=== PATIENT | male | born 1950 | race Caucasian/White ===

== ENCOUNTER 2017-01-20 09:37 | Emergency (ER) | payer MEDICARE, OTHER ==
--- NOTE | 2017-01-20 09:58 | ED Physician Documentation ---
PD HPI TRUNK INJURY - Stated complaint Stated Complaint: R RIB INJ - Chief complaint Chief Complaint: General - History obtained from History obtained from: Patient, Family - History of Present Illness Location: Right chest Type of injury: Fall (he has balance/vertigo problems and has fallen at times if gets up too quickly. He uses cane regularly. Has seen ENT and is going to see Neuro next month about it. Meclizine did not help. He is on several meds that could give these symptoms, though all the meds predate the onset of symptoms by a year or two. He struck right anterolateral ribs when fell and hurts focally.) Timing - onset: Last night Timing - details: Abrupt onset, Still present Quality: Pain Improved by: Rest Worsened by: Moving, Palpating, Other (deep breathing) Associated symtptoms: No: Weakness, Numbness Contributing factors: No: Anticoagulated, Other injury Where injury occured: Home Review of Systems Constitutional: denies: Fever, Chills Nose: denies: Rhinorrhea / runny nose, Congestion Throat: denies: Sore throat Cardiac: denies: Palpitations Respiratory: denies: Dyspnea, Cough, Wheezing GI: denies: Abdominal Pain, Nausea, Vomiting Neurologic: denies: Focal weakness, Numbness, Altered mental status, Headache, Head injury PD PAST MEDICAL HISTORY - Past Medical History Past Medical History: Yes Cardiovascular: Hypertension, High cholesterol Respiratory: None Endocrine/Autoimmune: None GI: None : None HEENT: None Musculoskeletal: Osteoarthritis, Other Derm: Other - Past Surgical History Past Surgical History: No General: Bowel surgery Ortho: Other - Present Medications Home Medications: Ambulatory Orders Medication Instructions Recorded Confirmed Gabapentin [Neurontin] 600 mg PO TID 06/16/13 01/20/17 Sertraline [Zoloft] 100 mg PO DAILY 06/16/13 01/20/17 Atenolol 50 mg PO DAILY 12/19/15 01/20/17 Cyclobenzaprine [Flexeril] 10 mg PO TID PRN 12/19/15 01/20/[address] [Voltaren] 75 mg PO BIDWM 12/19/15 01/20/17 Hydroxyzine HCl 25 mg PO TID 12/19/15 01/20/17 Lisinopril 20 mg PO DAILY 12/19/15 01/20/17 Omeprazole [PriLOSEC] 40 mg PO BID 12/19/15 01/20/17 Prazosin HCl [Minipress] 4 mg PO DAILY PM 12/19/15 01/20/17 buPROPion [Wellbutrin Sr] 150 mg PO BID 12/19/15 01/20/17 Atorvastatin Calcium 40 mg PO DAILY 01/20/17 01/20/17 Hydroxyzine Pamoate 25 mg PO TID 01/20/17 01/20/17 Meclizine HCl 25 mg PO Q6HR PRN 01/20/17 01/20/17 Tramadol HCl 50 mg PO Q6H PRN #20 tablet 01/20/17 - Allergies Allergies/Adverse Reactions: Allergies Allergy/AdvReac Type Severity Reaction Status Date / Time No Known Drug Allergies Allergy Verified 06/16/13 15:35 - Social History Does the pt smoke?: No Smoking Status: Never smoker Does the pt drink ETOH?: Yes Does the pt have substance abuse?: No - Immunizations Immunizations: TDAP >10years/unknown PD ED PE NORMAL - Vitals Vital signs reviewed: Yes - General General: Alert and oriented X 3, Well developed/nourished, Other (appears in pain with movement of trunk and deep breathing. Unlabored breathing when sitting. ) - HEENT HEENT: Atraumatic - Neck Neck: Supple, no meningeal sign, No bony TTP, No adenopathy - Cardiac Cardiac: RRR, No murmur - Respiratory Respiratory: Clear bilaterally, Other (right anterolateral chestwall tenderness without crepitance nor deformity about ribs 7-10 area. ) - Abdomen Abdomen: Normal bowel sounds, Soft, Non tender, Non distended - Derm Derm: Normal color, Warm and dry - Neuro Neuro: Alert and oriented X 3, real estate transaction coordinator 2-12 intact, No motor deficit, No sensory deficit, Normal speech, Other - Psych Psych: Normal mood, Normal affect Results - Vitals Vitals: Vital Signs - 24 hr 01/20/17 01/20/17 09:40 11:20 Temperature 35.5 C L Heart Rate 76 67 Respiratory 14 18 Rate Blood Pressure 167/103 H 165/98 H O2 Saturation 100 97 Oxygen O2 Source Room air - Rads (name of study) ribs with chest Radiology: Prelim report reviewed, EMP read contemporaneously (no PTX, effusion nor evident rib fractures. ) PD MEDICAL DECISION MAKING - ED course Complexity details: reviewed results (no fractures seen. Clinically not concern for abd injury. Short course NSAIDs and pain meds. Though don't want to add to his dizziness, balance issues. He has seen ENT and is seeing Neuro regarding the vertiog-like symptoms. Told pt xray is okay but does not preclude 5% chance of occult nondisplaced fracture of rib. I talked with him about his having several meds that can cause dizziness and if his PMD would want to try single elimination at a time of some of his meds to see if causing the dizziness. He is seeing Neuro next month as well. ), considered differential, d/w patient Departure - Departure Disposition: 01 Home, Self Care Clinical Impression: Fall from slip, trip, or stumble Qualifiers: Encounter type: initial encounter Qualified Code(s): W01.0XXA - Fall on same level from slipping, tripping and stumbling without subsequent striking against object, initial encounter Chest wall contusion Qualifiers: Encounter type: initial encounter Laterality: right Qualified Code(s): S20.211A - Contusion of right front wall of thorax, initial encounter Condition: Stable Record reviewed to determine appropriate education?: Yes Instructions: ED Contusion Chest Wall Follow-Up: Luis Alfredo De Anda PA-C [Primary Care Provider] - Prescriptions: Tramadol HCl 50 mg PO Q6H PRN #20 tablet PRN Reason: Pain Comments: Tylenol 650 mg 4 times daily for the next few days. Add Ibuprofen or Naproxen for pain as needed, or can add Tramadol if worse pain. Drink adequate fluids. Continue other usual medications. I don't see any broken ribs on xray, but can still be sore, and some hairline cracks in ribs may not show, so could be sore for week or two. Discharge Date/Time: 01/20/17 11:22
[2017-01-20] MEDS ORDERED: IBUPROFEN 600 MG TABLET PO STA (10:24)
[2017-01-20] MEDS ORDERED: traMADol 50 MG TABLET PO STA (10:24)
[2017-01-20] MEDS ORDERED: traMADol 50 MG TABLET PO ONE (10:27)
[2017-01-20] MEDS ORDERED: IBUPROFEN 600 MG TABLET PO ONE ×2 (10:28→10:30)
[2017-01-20 11:21] VITALS: BP 165/98
--- NOTE | 2017-01-20 11:50 | XRAY Preliminary Report ---
Exam: XR Ribs w/PA Chest RT IMPRESSION: Negative right rib radiography. [facility] SITE ID: [id number]
--- NOTE | 2017-01-20 11:53 | XRAY Report ---
EXAM: RIGHT RIB RADIOGRAPHY EXAM DATE: 01/20/2017 10:45 AM. CLINICAL HISTORY: Fall last night with right ribs pain. COMPARISON: No prior rib x-ray for comparison; chest x-ray on 07/04/2006. TECHNIQUE: 2 views of the right ribs and one AP view of the chest. FINDINGS: Bones: No fracture or bone lesion. Lungs: No focal opacities evident. No pneumothorax or pleural effusions. Mediastinum: Heart and cardiomediastinal contours are unremarkable. IMPRESSION: Negative right rib radiography. [facility] Referring Provider Line: [phone] SITE ID: [id number]
== END 2017-01-20 11:22 | disposition home or self-care (01) ==
LOC: ED 09:37
DX: S20.211A Contusion of right front wall of thorax, initial encounter (principal); W01.0XXA Fall on same level from slipping, tripping and stumbling without subsequent striking against object, initial encounter; R42 Dizziness and giddiness; I10 Essential (primary) hypertension
CPT/HCPCS: 71101; 99283; 99284; A9270

== ENCOUNTER 2018-07-13 09:49 | Outpatient (CLI) | payer MEDICARE, OTHER ==
[2018-07-13] MEDS ORDERED: BARIUM SULFATE 176 GM BOTTLE PO ONE (10:40)
[2018-07-13] MEDS ORDERED: SIMETHICONE/SOD BICARB/CIT AC 1 EACH PACKET PO ONE (10:41)
[2018-07-13] MEDS ORDERED: BARIUM SULFATE 135 ML BOTTLE PO ONE (10:41)
[2018-07-13 11:21] LABS: ALBUMIN 4.3 g/dL (3.2-5.5); ALBUMIN/GLOBULIN RATIO 1.1 (1.0-2.2); ALKALINE PHOSPHATASE 59 IU/L (42-121); ALT ALANINE AMINOTRANSFERASE 22 IU/L (10-60); AST ASPARTATE AMINOTRANSFERASE 34 IU/L (10-42); BILIRUBIN,TOTAL 1.5 mg/dL (0.2-1.0); BUN - BLOOD UREA NITROGEN 12 mg/dL (6-20); CALCIUM 9.5 mg/dL (8.5-10.3); CARBON DIOXIDE - CO2 27 mmol/L (21-32); CHLORIDE 102 mmol/L (101-111); CHOL/HDL RATIO 3.9 (<5.0); CHOLESTEROL 232 mg/dL; CREATININE 0.4 mg/dL (0.6-1.2); GFR - MDRD 215 (>89); GLUCOSE 122 mg/dL (70-100); HDL CHOLESTEROL 59 mg/dL; LDL CHOLESTEROL,CALCULATED 148 mg/dL; LDL/HDL RATIO 2.5 (<3.6); SODIUM 137 mmol/L (135-145); TOTAL PROTEIN 8.1 g/dL (6.7-8.2); VLDL CHOLESTEROL 25 mg/dL
[2018-07-13 11:40] LABS: HB2 TOTAL 19.6 g/dL; HEMOGLOBIN A1C 0.67 g/dL; HEMOGLOBIN A1C % 5.3 % (4.6-6.2)
[2018-07-13 11:47] LABS: BASOPHILS % (AUTO) 0.4 %; EOSINOPHILS # (AUTO) 0.4 10^3/uL (0.0-0.7); EOSINOPHILS % (AUTO) 5.4 %; HGB - HEMOGLOBIN 18.2 g/dL (14.0-18.0); LYMPHOCYTES # (AUTO) 1.4 10^3/uL (1.5-3.5); LYMPHOCYTES % (AUTO) 19.9 %; MEAN CORPUSCULAR HEMOGLOBIN 32.7 pg (27.0-31.0); MEAN CORPUSCULAR HGB CONC 34.6 g/dL (32.0-36.0); MEAN CORPUSCULAR VOLUME 94.5 fL (80.0-94.0); MEAN PLATELET VOLUME 7.6 fL (7.4-11.4); MONOCYTES # (AUTO) 0.5 10^3/uL (0.0-1.0); MONOCYTES % (AUTO) 7.6 %; NEUTROPHILS # (AUTO) 4.5 10^3/uL (1.5-6.6); NEUTROPHILS % (AUTO) 66.7 %; PLT - PLATELET COUNT 318 10^3/uL (130-450); RED BLOOD COUNT 5.56 10^6/uL (4.70-6.10); RED CELL DISTRIBUTION WIDTH 14.7 % (12.0-15.0); WHITE BLOOD COUNT 6.8 x10^3/uL (4.8-10.8)
[2018-07-13 13:40] LABS: THYROID STIMULATING HORMONE 1.28 uIU/mL (0.34-5.60)
[2018-07-13 13:42] LABS: FREE T4 (FREE THYROXINE) 1.04 ng/dL (0.58-1.64)
--- NOTE | 2018-07-13 13:43 | XRAY Report ---
Reason: DYSPHAGIA Procedure Date: 07/13/2018 Accession Number: [id number] / [id number] Procedure: FL - Esophogram CPT Code: FULL RESULT: EXAM: BARIUM ESOPHAGRAM EXAM DATE: 07/13/2018 10:25 AM. CLINICAL HISTORY: Dysphagia. COMPARISONS: None. TECHNIQUE: Routine double contrast esophagram. Fluoroscopy Time: 3 minutes 14 seconds. Number of Images: 24. FINDINGS: Swallowing Mechanism: Normal. No tracheal aspiration or penetration. Esophageal Motility: Normal peristaltic stripping wave. Mucosa: Normal. No ulcerations or masses. Gastroesophageal Junction: Normal. No hernia, stricture, or significant reflux. Other: None. IMPRESSION: Normal barium swallow. [facility]
== END 2018-07-13 09:50 | disposition home or self-care (01) ==
LOC: DI 09:49
PROVIDERS: ATTEND Family Medicine
DX: R13.10 Dysphagia, unspecified (principal); I10 Essential (primary) hypertension; E11.9 Type 2 diabetes mellitus without complications; Z12.5 Encounter for screening for malignant neoplasm of prostate; R94.5 Abnormal results of liver function studies
CPT/HCPCS: 36415; 74220; 80053; 80061; 83036; 84439; 84443; 85025; A9270; G0103; 83721; 84153

== ENCOUNTER 2018-07-21 11:41 | Outpatient (CLI) | payer MEDICARE, OTHER ==
[2018-07-21 19:55] LABS: INR 1.1 (0.8-1.2); PT - PROTHROMBIN TIME 12.4 secs (9.9-12.6)
[2018-07-21 20:15] LABS: CALCIUM 9.1 mg/dL (8.5-10.3); CREATININE 0.7 mg/dL (0.6-1.2)
== END 2018-07-21 23:59 | disposition home or self-care (01) ==
LOC: LAB.WCP 11:41
PROVIDERS: ATTEND Family Medicine
DX: R11.0 Nausea (principal); E87.6 Hypokalemia; D75.1 Secondary polycythemia; R63.4 Abnormal weight loss; Z79.899 Other long term (current) drug therapy
CPT/HCPCS: 36415; 80048; 82088; 84244; 85610

== ENCOUNTER 2018-07-24 07:03 | Outpatient (CLI) | payer MEDICARE, OTHER ==
[2018-07-24] MEDS ORDERED: IOVERSOL 320 50 ML VIAL ONE (07:12)
[2018-07-24] MEDS ORDERED: IOVERSOL 320 100 ML VIAL IVP ONE ×2 (07:12→09:48)
[2018-07-24] MEDS ORDERED: IOVERSOL 320 50 ML VIAL PO ONE (09:48)
--- NOTE | 2018-07-24 11:33 | CT Report ---
Reason: POLYCYTHEMIA, NAUSEA, WEIGHT LOSS Procedure Date: 07/24/2018 Accession Number: [id number] / [id number] Procedure: CT - Abdomen/Pelvis W/ CPT Code: FULL RESULT: EXAM: CT ABDOMEN AND PELVIS EXAM DATE: 07/24/2018 08:19 AM. CLINICAL HISTORY: Polycythemia, nausea, weight loss. COMPARISONS: None. TECHNIQUE: Routine helical CT imaging was performed through the abdomen and pelvis. IV contrast: CE. Enteric contrast: No. Reconstructions: Coronal and sagittal. In accordance with CT protocol optimization, one or more of the following dose reduction techniques were utilized for this exam: automated exposure control, adjustment of mA and/or KV based on patient size, or use of iterative reconstructive technique. FINDINGS: Lung Bases: Unremarkable. Liver: Normal. No masses. Gallbladder/Bile Ducts: Unremarkable. Spleen: Mild splenomegaly, maximal dimension 15 cm, subjective volume also high. Pancreas: Normal. Adrenal Glands: Normal. Kidneys: Normal. No masses or hydronephrosis. Peritoneal Cavity/Bowel: Normal. No free fluid, free air or adenopathy. No masses or acute inflammatory process. Pelvic Organs: Subjectively thickened bladder wall in relatively nondistended urinary bladder in the setting of a prominent prostate. Vasculature: No aneurysms or other significant abnormality. Bones: No significant abnormality. Other: None. IMPRESSION: Mild splenomegaly. No suspicious mass is identified. No suspicious lymphadenopathy. Question partial bladder outlet obstruction due to benign prostatic hypertrophy, correlate to symptoms. [facility]
== END 2018-07-24 07:04 | disposition home or self-care (01) ==
LOC: DI 07:03
PROVIDERS: ATTEND Family Medicine
DX: R16.1 Splenomegaly, not elsewhere classified (principal); N40.0 Benign prostatic hyperplasia without lower urinary tract symptoms; D75.1 Secondary polycythemia
CPT/HCPCS: 74177; Q9967

== ENCOUNTER 2018-08-01 07:34 | Outpatient (CLI) | payer MEDICARE, OTHER ==
[~2018-08-01 07:34] MED LIST: IOVERSOL 320 100 ML VIAL IVP ONE
[2018-08-01] MEDS ORDERED: IOVERSOL 320 100 ML VIAL IVP ONE ×2 (08:17)
--- NOTE | 2018-08-03 09:20 | CT Report ---
Reason: WEIGHT LOSS Procedure Date: 08/01/2018 Accession Number: [id number] / [id number] Procedure: CT - Chest W/ CPT Code: FULL RESULT: EXAM: CT CHEST WITH CONTRAST EXAM DATE: 08/01/2018 08:13 AM. CLINICAL HISTORY: Weight loss. COMPARISONS: 06/17/2011. TECHNIQUE: Routine helical CT imaging was performed through the chest. IV contrast: 80 cc Isovue 320. Reconstructions: Coronal and sagittal. In accordance with CT protocol optimization, one or more of the following dose reduction techniques were utilized for this exam: automated exposure control, adjustment of mA and/or KV based on patient size, or use of iterative reconstructive technique. FINDINGS: Lungs/Pleura: Right upper and lower lobe calcified nodules/granulomata redemonstrated. No acute infiltrate. No pulmonary consolidation. No pleural effusion. No pneumothorax. Mediastinum: Normal. No adenopathy or masses. The heart and great vessels are normal. Bones: Unremarkable. Visualized Abdomen: Unremarkable. Other: Partial redemonstration of a midline abdominal fat containing ventral hernia. IMPRESSION: No acute abnormality of the chest demonstrated. [facility]
== END 2018-08-01 07:35 | disposition home or self-care (01) ==
LOC: DI 07:34
PROVIDERS: ATTEND Surgery
DX: R63.4 Abnormal weight loss (principal)
CPT/HCPCS: 71260; Q9967

== ENCOUNTER 2018-09-04 15:59 | Emergency (ER) | payer MEDICARE, OTHER ==
[2018-09-04 16:33] LABS: BASOPHILS % (AUTO) 0.3 %; EOSINOPHILS # (AUTO) 0.2 10^3/uL (0.0-0.7); EOSINOPHILS % (AUTO) 2.2 %; LYMPHOCYTES % (AUTO) 14.6 %; MEAN CORPUSCULAR HEMOGLOBIN 31.8 pg (27.0-31.0); MEAN CORPUSCULAR HGB CONC 33.8 g/dL (32.0-36.0); MEAN CORPUSCULAR VOLUME 94.1 fL (80.0-94.0); MEAN PLATELET VOLUME 8.9 fL (7.4-11.4); MONOCYTES # (AUTO) 0.5 10^3/uL (0.0-1.0); MONOCYTES % (AUTO) 6.8 %; NEUTROPHILS # (AUTO) 5.4 10^3/uL (1.5-6.6); NEUTROPHILS % (AUTO) 76.1 %; PLT - PLATELET COUNT 308 10^3/uL (130-450); RED BLOOD COUNT 5.34 10^6/uL (4.70-6.10); RED CELL DISTRIBUTION WIDTH 14.6 % (12.0-15.0); WHITE BLOOD COUNT 7.1 x10^3/uL (4.8-10.8)
[2018-09-04 16:46] LABS: ALBUMIN 4.7 g/dL (3.2-5.5); ALBUMIN/GLOBULIN RATIO 1.4 (1.0-2.2); BILIRUBIN,TOTAL 1.4 mg/dL (0.2-1.0); CALCIUM 10.1 mg/dL (8.5-10.3); CREATININE 1.1 mg/dL (0.6-1.2); TOTAL PROTEIN 8.1 g/dL (6.7-8.2)
[2018-09-04 17:47] VITALS: BP 124/91
== END 2018-09-04 18:47 | disposition left against medical advice (07) ==
LOC: ED 15:59
DX: R11.2 Nausea with vomiting, unspecified (principal); R68.83 Chills (without fever); R63.4 Abnormal weight loss; Z53.21 Procedure and treatment not carried out due to patient leaving prior to being seen by health care provider
CPT/HCPCS: 36415; 80053; 83690; 85025

== ENCOUNTER 2018-09-05 10:46 | Emergency (ER) | payer MEDICARE, OTHER ==
--- NOTE | 2018-09-05 13:02 | ED Physician Documentation ---
PD HPI ABD PAIN - Stated complaint Stated Complaint: NAUSEA/DEHYDRATED - Chief complaint Chief Complaint: Abd Pain - History obtained from History obtained from: Patient - History of Present Illness Timing - onset: Other (He has had vomiting x 3 months, generally worsening and now daily. Every other day until 2 weeks ago. 4 episodes yesterday and none today. Had Abd CT and chest CT just before Xmas with possible BPH/lg bladder, otherwise no findings. Small amts of urine with frequency. Chills x 5 days. Started CBD oil x 1 month which is not helping. Quit Etoh 1 month ago. H/O strangulated intestine s/p surgery 2005. Also urgent diarrhea x 6 weeks, but only once per week. Has lost 60 lbs with all this.) PD PAST MEDICAL HISTORY - Past Medical History Cardiovascular: Hypertension, High cholesterol Respiratory: None Endocrine/Autoimmune: None GI: None : None HEENT: None Musculoskeletal: Osteoarthritis, Other Derm: Other - Past Surgical History Past Surgical History: No General: Bowel surgery Ortho: Other - Present Medications Home Medications: Ambulatory Orders Medication Instructions Recorded Confirmed Gabapentin [Neurontin] 600 mg PO TID 06/16/13 01/20/17 Sertraline [Zoloft] 100 mg PO DAILY 06/16/13 09/04/18 Atenolol 50 mg PO DAILY 12/19/15 01/20/17 Cyclobenzaprine [Flexeril] 10 mg PO TID PRN 12/19/15 01/20/[address] [Voltaren] 75 mg PO BIDWM 12/19/15 01/20/17 Hydroxyzine HCl 25 mg PO TID 12/19/15 01/20/17 Lisinopril 20 mg PO DAILY 12/19/15 09/04/18 Omeprazole [PriLOSEC] 40 mg PO BID 12/19/15 09/04/18 Prazosin HCl [Minipress] 4 mg PO DAILY PM 12/19/15 09/04/18 buPROPion [Wellbutrin Sr] 150 mg PO BID 12/19/15 09/04/18 Atorvastatin Calcium 40 mg PO DAILY 01/20/17 01/20/17 hydrOXYzine pamoate [Hydroxyzine 25 mg PO TID 01/20/17 09/04/18 Pamoate] Metoclopramide [Reglan] 10 mg PO Q6H PRN #20 tablet 09/05/18 - Allergies Allergies/Adverse Reactions: Allergies Allergy/AdvReac Type Severity Reaction Status Date / Time No Known Drug Allergies Allergy Verified 09/05/18 10:55 - Social History Does the pt smoke?: No Smoking Status: Former smoker (quit 1991) Does the pt drink ETOH?: No Does the pt have substance abuse?: Yes Substance Use and Type: Marijuana - Immunizations Immunizations: TDAP >10years/unknown PD ED PE NORMAL - Vitals Vital signs reviewed: Yes (HR about 100, HTN) - General General: Alert and oriented X 3, No acute distress - HEENT HEENT: Other (dry MM) - Neck Neck: Supple, no meningeal sign, No bony TTP - Cardiac Cardiac: RRR, No murmur - Respiratory Respiratory: No respiratory distress, Clear bilaterally - Abdomen Abdomen: Normal bowel sounds, Soft, Non tender - Back Back: No CVA TTP, No spinal TTP - Derm Derm: Normal color, Warm and dry - Extremities Extremities: No edema, No calf tenderness / cord - Neuro Neuro: Alert and oriented X 3, Normal speech - Psych Psych: Normal mood, Normal affect Results - Vitals Vitals: Vital Signs - 24 hr 09/05/18 09/05/18 09/05/18 10:52 11:10 12:37 Temperature 36.0 C L Heart Rate 91 123 H 93 Respiratory 14 18 18 Rate Blood Pressure 143/100 H 145/93 H 137/97 H O2 Saturation 98 97 99 09/05/18 09/05/18 13:27 14:16 Temperature Heart Rate 99 90 Respiratory 18 17 Rate Blood Pressure 141/89 H 142/98 H O2 Saturation 98 98 Oxygen O2 Source Room air - Labs Labs: Laboratory Tests 09/05/18 09/05/18 13:25 13:45 Sodium 138 Potassium 3.4 L Chloride 100 L Carbon Dioxide 25 Anion Gap 13.0 BUN 27 H Creatinine 1.0 Estimated GFR (MDRD) 75 L Glucose 108 H Calcium 10.1 Total Bilirubin 1.3 H AST 27 ALT 23 Alkaline Phosphatase 54 Total Protein 8.0 Albumin 4.6 Globulin 3.4 Albumin/Globulin Ratio 1.4 Lipase 59 H Urine Color DARK YELLOW Urine Clarity CLEAR Urine pH 5.5 Ur Specific [place] >=1.030 H Urine Protein NEGATIVE Urine Glucose (UA) NEGATIVE Urine Ketones 40 H Urine Occult Blood NEGATIVE Urine Nitrite NEGATIVE Urine Bilirubin NEGATIVE Urine Urobilinogen 1 (NORMAL) Ur Leukocyte Esterase NEGATIVE Ur Microscopic Review NOT INDICATED Urine Culture Comments NOT INDICATED PD MEDICAL DECISION MAKING - ED course ED course: 68-year-old gentleman with almost subacute now vomiting with weight loss. He has had a CT of his chest and abdomen as well as a barium swallow without significant etiology. He was administered Reglan here and he was tolerating p.o. well after that. This was the first medication that had been tried for this. Departure - Departure Disposition: 01 Home, Self Care Clinical Impression: Vomiting Condition: Good Record reviewed to determine appropriate education?: Yes Instructions: ED Nausea Vomiting Prescriptions: Metoclopramide [Reglan] 10 mg PO Q6H PRN #20 tablet PRN Reason: nausea or headache Comments: As discussed you need to follow-up for an upper endoscopy as well as potential gastric emptying study to further elucidate the cause of these issues. Return anytime if worse.
[2018-09-05] MEDS ORDERED: SODIUM CHLORIDE 0.9% 1,000 ML IV ONE (13:10)
[2018-09-05] MEDS ORDERED: METOCLOPRAMIDE 10 MG/2 ML VIAL IVP STA (13:11)
[2018-09-05 14:13] LABS: GLUCOSE, URINE (UA) NEGATIVE (NEGATIVE); KETONES,URINE (UA) 40 mg/dL (NEGATIVE); LEUKOCYTE ESTERASE, URINE NEGATIVE (NEGATIVE); NITRITE,URINE NEGATIVE (NEGATIVE); OCCULT BLOOD,URINE NEGATIVE (NEGATIVE); PH,URINE 5.5 PH (5.0-7.5); PROTEIN,URINE NEGATIVE (NEGATIVE); UROBILINOGEN,URINE 1 (NORMAL) E.U./dL (NORMAL)
[2018-09-05 14:13] LABS: ALBUMIN 4.6 g/dL (3.2-5.5); ALBUMIN/GLOBULIN RATIO 1.4 (1.0-2.2); BILIRUBIN,TOTAL 1.3 mg/dL (0.2-1.0); CALCIUM 10.1 mg/dL (8.5-10.3)
[2018-09-05 14:15] LABS: CLARITY,URINE CLEAR (CLEAR)
[2018-09-05 14:16] VITALS: BP 142/98
[2018-09-05 14:17] LABS: BILIRUBIN,URINE NEGATIVE (NEGATIVE); ICTOTEST,URINE NEGATIVE
== END 2018-09-05 15:04 | disposition home or self-care (01) ==
LOC: ED 10:46
DX: R11.2 Nausea with vomiting, unspecified (principal); R63.4 Abnormal weight loss; I10 Essential (primary) hypertension; E78.00 Pure hypercholesterolemia, unspecified; Z87.891 Personal history of nicotine dependence
CPT/HCPCS: 36415; 80053; 81003; 83690; 96361; 96374; 99283; J2765; 81001; 87086

== ENCOUNTER 2018-09-23 12:45 | Emergency (ER) | payer MEDICARE, OTHER ==
--- NOTE | 2018-09-23 15:41 | ED Physician Documentation ---
PD HPI FOCAL NEURO - Stated complaint Stated Complaint: VISION CHANGE/DROPPY EYE - Chief complaint Chief Complaint: Neuro - History obtained from History obtained from: Patient - History of Present Illness Timing - onset: How many hours ago (2), Today Timing - duration: Hours (2) Timing - details: Abrupt onset Severity of deficit: Mild Weakness: No: Face, Arm, Hand, Leg, Foot, Right, Left Numbness: No: Face, Arm, Hand, Leg, Foot, Right, Left Associated symptoms: No: Headache, Nausea / vomiting, Seizure, Syncope, Fall, Head injury, Chest pain, Neck pain, Back pain, Fever Contributing factors: negative: Atrial fibrillation, Prosthetic heart valve Baseline status: positive: A&OX3, ambulatory, indep Similar symptoms before: Diagnosis Recently seen: Not recently seen - Additional information Additional information: 68 year old male, states that his vision was blurred today. Started about 1pm. states that his left eye was angled down and outward. Has been ongoing for several years, once per month. today lasted longer than normal. State his vision is still blurred. States he sees a neurologist for this. States had an MRI 2 years ago. Done at the [facility], showed an old stroke. Review of Systems Ten Systems: 10 systems reviewed and negative Constitutional: denies: Fever, Chills Ears: denies: Ear pain Nose: denies: Rhinorrhea / runny nose, Congestion Throat: denies: Sore throat Cardiac: denies: Chest pain / pressure Respiratory: denies: Cough GI: denies: Nausea, Vomiting, Diarrhea Skin: denies: Rash Musculoskeletal: denies: Neck pain, Back pain Neurologic: denies: Focal weakness, Numbness, Confused, Altered mental status, Headache PD PAST MEDICAL HISTORY - Past Medical History Cardiovascular: Hypertension, High cholesterol Respiratory: None Endocrine/Autoimmune: None GI: None : None HEENT: None Musculoskeletal: Osteoarthritis, Other Derm: Other - Past Surgical History Past Surgical History: No General: Bowel surgery Ortho: Other - Present Medications Home Medications: Ambulatory Orders Medication Instructions Recorded Confirmed Gabapentin [Neurontin] 600 mg PO TID 06/16/13 01/20/17 Sertraline [Zoloft] 100 mg PO DAILY 06/16/13 09/04/18 Atenolol 50 mg PO DAILY 12/19/15 01/20/17 Cyclobenzaprine [Flexeril] 10 mg PO TID PRN 12/19/15 01/20/[address] [Voltaren] 75 mg PO BIDWM 12/19/15 01/20/17 Hydroxyzine HCl 25 mg PO TID 12/19/15 01/20/17 Lisinopril 20 mg PO DAILY 12/19/15 09/04/18 Omeprazole [PriLOSEC] 40 mg PO BID 12/19/15 09/04/18 Prazosin HCl [Minipress] 4 mg PO DAILY PM 12/19/15 09/04/18 buPROPion [Wellbutrin Sr] 150 mg PO BID 12/19/15 09/04/18 Atorvastatin Calcium 40 mg PO DAILY 01/20/17 01/20/17 hydrOXYzine pamoate [Hydroxyzine 25 mg PO TID 01/20/17 09/04/18 Pamoate] Metoclopramide [Reglan] 10 mg PO Q6H PRN #20 tablet 09/05/18 - Allergies Allergies/Adverse Reactions: Allergies Allergy/AdvReac Type Severity Reaction Status Date / Time bee venom protein (honey bee) Allergy Unknown Verified 09/23/18 12:56 - Social History Does the pt smoke?: No Smoking Status: Former smoker (quit 1991) Does the pt drink ETOH?: No Does the pt have substance abuse?: Yes - Immunizations Immunizations: TDAP >10years/unknown PD ED PE NORMAL - Vitals Vital signs reviewed: Yes - General General: Alert and oriented X 3, No acute distress, Well developed/nourished - HEENT HEENT: PERRL, EOMI, Moist mucous membranes, Other (normal visial rudd. ) - Neck Neck: Supple, no meningeal sign - Cardiac Cardiac: RRR - Respiratory Respiratory: No respiratory distress, Clear bilaterally - Abdomen Abdomen: Soft, Non tender, Non distended - Derm Derm: Warm and dry - Extremities Extremities: No deformity - Neuro Neuro: Alert and oriented X 3, architect manager 2-12 intact, No motor deficit, No sensory deficit, Normal speech - Psych Psych: Normal mood, Normal affect NIHSS - Time Time: 15:00 - Level of Consciousness Level of consciousness: (0) Alert, Keenly responsive LOC Questions: (0) Answers both Q's correct LOC Commands: (0) Performs both correctly - Gaze Best Gaze: (0) Normal - Visual Visual: (0) No loss - Facial Palsy Facial Palsy: (0) Normal, symmetrical movement - Motor Arms (both separate) Motor Arm (right): (0) No drift Motor Arm (left): (0) No drift - Motor Legs (both separate) Motor Leg (right): (0) No drift Motor Leg (left): (0) No drift - Limb Ataxia Limb Ataxia: (0) Absent - Sensory Sensory: (0) Normal - Best Language Best Language: (0) No aphasia - Dysarthria Dysarthria: (0) Normal - Extinction and Inattention (formally neg Extinction and inattention: (0) No abnormality - Total Score/Results Total Score/Result: 0 Results - Vitals Vitals: Vital Signs - 24 hr 09/23/18 09/23/18 09/23/18 12:52 15:23 15:30 Temperature 36.8 C 36.8 C Heart Rate 71 66 Respiratory 18 17 Rate Blood Pressure 133/94 H 126/92 H 127/89 H O2 Saturation 99 96 09/23/18 17:09 Temperature Heart Rate 52 L Respiratory 23 Rate Blood Pressure 132/82 H O2 Saturation 100 Oxygen O2 Source Room air - Labs Labs: Laboratory Tests 09/23/18 09/23/18 16:15 16:58 WBC 7.3 RBC 5.27 Hgb 16.7 Hct 48.9 MCV 92.8 MCH 31.8 H MCHC 34.2 RDW 14.9 Plt Count 264 MPV 8.0 Neut # (Auto) 4.4 Lymph # (Auto) 2.0 [place] # (Auto) 0.5 Eos # (Auto) 0.3 Baso # (Auto) 0.1 Absolute Nucleated RBC 0.02 Nucleated RBC % 0.3 Sodium 136 Potassium 4.2 Chloride 102 Carbon Dioxide 25 Anion Gap 9.0 BUN 18 Creatinine 0.8 Estimated GFR (MDRD) 96 Glucose 108 H Calcium 9.7 Total Bilirubin 1.0 AST 27 ALT 24 Alkaline Phosphatase 43 Total Protein 7.4 Albumin 4.3 Globulin 3.1 Albumin/Globulin Ratio 1.4 Lipase 75 H - Rads (name of study) head CT Radiology: Prelim report reviewed, EMP read contemporaneously, See rad report (No acute abnormality) PD MEDICAL DECISION MAKING - ED course Complexity details: reviewed results, re-evaluated patient, considered differential, d/w patient, d/w family ED course: 68-year-old male with what sounds like an 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 Happens once per month. No acute findings on laboratory testing or CT scan today. We will start him on a baby aspirin daily and follow-up with neurology and ophthalmology. He will likely need an MRI and/or MRA as an outpatient. Asymptomatic here. patient and family counseled regarding signs and symptoms for which I believe and urgent re-evaluation would be necessary. Patient with good understanding of and agreement to plan and is comfortable going home at this time This document was made in part using voice recognition software. While efforts are made to proofread this document, sound alike and grammatical errors may occur. Departure - Departure Disposition: 01 Home, Self Care Clinical Impression: Cranial nerve III palsy Qualifiers: Laterality: left Qualified Code(s): H49.02 - Third [oculomotor] nerve palsy, left eye Condition: Good Follow-Up: Jorden Mann MD [Primary Care Provider] - Within 1 week Comments: Please start on a baby aspirin daily. You appear to be having an intermittent 3rd cranial nerve palsy on the left. You should receive an MRI and MRA as an outpatient. You would also benefit from a neurology and likely ophthalmology referral for this. Return if you worsen. Discharge Date/Time: 09/23/18 17:22
--- NOTE | 2018-09-23 16:08 | CT Report ---
Reason: L eye gaze, down and out Procedure Date: 09/23/2018 Accession Number: [id number] / [id number] Procedure: CT - Head W/O Stroke Protocol CPT Code: FULL RESULT: EXAM: CT HEAD EXAM DATE: 09/23/2018 04:00 PM. CLINICAL HISTORY: L eye gaze, down and out. COMPARISON: 06/17/2011 9:36 PM. TECHNIQUE: Multiaxial CT images were obtained from the foramen magnum to the vertex. Reformats: Sagittal and coronal. IV contrast: None. In accordance with CT protocol optimization, one or more of the following dose reduction techniques were utilized for this exam: automated exposure control, adjustment of mA and/or KV based on patient size, or use of iterative reconstructive technique. FINDINGS: Parenchyma: Negative for intracranial acute hemorrhage. There is no midline shift or mass-effect. No localizing edema seen by noncontrast CT. Extraaxial Spaces: No subdural or epidural collections identified. Ventricles: Normal in size and position. Sinuses and Orbits: Imaged paranasal sinuses, orbits, and mastoids show no significant abnormality. Bones: No evidence of fracture or calvarial defect. Other: No asymmetric dense intracranial arteries. IMPRESSION: 1. Negative for an acute or focal intracranial abnormality by noncontrast CT. [facility] The call report notification system was initiated by Dr. Aníbal Mcfarlane at 04:07 PM on 09/23/2018. ADDENDUM: 09/23/18 16:09 The above findings were discussed with Logan Ortez by Dr. Aníbal Mcfarlane at 04:09 PM on 09/23/2018.
[2018-09-23 16:32] LABS: BASOPHILS # (AUTO) 0.1 10^3/uL (0.0-0.1); BASOPHILS % (AUTO) 0.7 %; EOSINOPHILS # (AUTO) 0.3 10^3/uL (0.0-0.7); EOSINOPHILS % (AUTO) 4.3 %; HGB - HEMOGLOBIN 16.7 g/dL (14.0-18.0); LYMPHOCYTES % (AUTO) 27.8 %; MEAN CORPUSCULAR HEMOGLOBIN 31.8 pg (27.0-31.0); MEAN CORPUSCULAR HGB CONC 34.2 g/dL (32.0-36.0); MEAN CORPUSCULAR VOLUME 92.8 fL (80.0-94.0); MONOCYTES # (AUTO) 0.5 10^3/uL (0.0-1.0); MONOCYTES % (AUTO) 6.6 %; NEUTROPHILS # (AUTO) 4.4 10^3/uL (1.5-6.6); NEUTROPHILS % (AUTO) 60.6 %; PLT - PLATELET COUNT 264 10^3/uL (130-450); RED BLOOD COUNT 5.27 10^6/uL (4.70-6.10); RED CELL DISTRIBUTION WIDTH 14.9 % (12.0-15.0); WHITE BLOOD COUNT 7.3 x10^3/uL (4.8-10.8)
[2018-09-23 17:10] VITALS: BP 132/82
[2018-09-23 17:15] LABS: ALBUMIN 4.3 g/dL (3.2-5.5); ALBUMIN/GLOBULIN RATIO 1.4 (1.0-2.2); CALCIUM 9.7 mg/dL (8.5-10.3); CREATININE 0.8 mg/dL (0.6-1.2); TOTAL PROTEIN 7.4 g/dL (6.7-8.2)
== END 2018-09-23 17:22 | disposition home or self-care (01) ==
LOC: ED 12:45
DX: H49.02 Third [oculomotor] nerve palsy, left eye (principal); I10 Essential (primary) hypertension; E78.00 Pure hypercholesterolemia, unspecified; Z87.891 Personal history of nicotine dependence
CPT/HCPCS: 36415; 70450; 80053; 83690; 85025; 93005; 99283; 99284

== ENCOUNTER 2019-10-04 14:35 | Outpatient (CLI) | payer MEDICARE, OTHER | END 2019-10-04 14:36 | disposition critical access hospital (66) | LOC: EMS 14:35 | PROVIDERS: ATTEND Surgery | DX: M54.5 Low back pain (principal); R29.6 Repeated falls | CPT/HCPCS: A0425; A0429 ==

== ENCOUNTER 2019-10-04 14:45 | Emergency (ER) | payer MEDICARE, OTHER ==
[2019-10-04] MEDS ORDERED: MAGNESIUM SULFATE 2 GRAM 2 GM/50 ML BAG IV ONE ×2 (15:05→17:55)
[2019-10-04] MEDS ORDERED: AMIODARONE 150 MG/100 ML 100 ML IV ONE (15:06)
[2019-10-04 15:20] LABS: BASOPHILS # (AUTO) 0.1 10^3/uL (0.0-0.1); BASOPHILS % (AUTO) 0.4 %; EOSINOPHILS # (AUTO) 0.1 10^3/uL (0.0-0.7); EOSINOPHILS % (AUTO) 0.4 %; HGB - HEMOGLOBIN 15.3 g/dL (14.0-18.0); LYMPHOCYTES # (AUTO) 1.3 10^3/uL (1.5-3.5); LYMPHOCYTES % (AUTO) 8.8 %; MEAN CORPUSCULAR HEMOGLOBIN 32.3 pg (27.0-31.0); MEAN CORPUSCULAR HGB CONC 34.8 g/dL (32.0-36.0); MEAN CORPUSCULAR VOLUME 92.8 fL (80.0-94.0); MEAN PLATELET VOLUME 9.7 fL (7.4-11.4); MONOCYTES # (AUTO) 1.1 10^3/uL (0.0-1.0); NEUTROPHILS # (AUTO) 12.6 10^3/uL (1.5-6.6); NEUTROPHILS % (AUTO) 82.7 %; PLT - PLATELET COUNT 299 10^3/uL (130-450); RED BLOOD COUNT 4.74 10^6/uL (4.70-6.10); RED CELL DISTRIBUTION WIDTH 13.3 % (12.0-15.0); WHITE BLOOD COUNT 15.2 x10^3/uL (4.8-10.8)
--- NOTE | 2019-10-04 15:25 | ED Physician Documentation ---
History of Present Illness - Stated complaint Stated Complaint: BACK PX - Chief complaint Chief Complaint: Back Pain - History obtained from History obtained from: Patient, Family, EMS - History of Present Illness Timing: Chronic Pain level max: 8 Pain level now: 7 - Additonal information Additional information: 69-year-old male with chronic back pain. He states he was walking around for about 6 hours today and this is worsened his back pain. Worse with movement and better with rest. No chest pain. No shortness of breath. Review of Systems Ten Systems: 10 systems reviewed and negative Constitutional: denies: Fever, Chills Throat: denies: Sore throat Cardiac: denies: Chest pain / pressure, Palpitations Respiratory: denies: Cough GI: denies: Nausea, Vomiting, Diarrhea : denies: Incontinent Skin: denies: Rash Musculoskeletal: denies: Neck pain Neurologic: denies: Focal weakness, Numbness, Headache PD PAST MEDICAL HISTORY - Past Medical History Cardiovascular: Hypertension, High cholesterol Respiratory: None Neuro: CVA Endocrine/Autoimmune: None GI: None : None HEENT: None Psych: Depression, Anxiety, Post traumatic stress disorder Musculoskeletal: Osteoarthritis, Other Derm: Other - Past Surgical History Past Surgical History: No General: Bowel surgery Ortho: Other - Present Medications Home Medications: Ambulatory Orders Medication Instructions Recorded Confirmed Gabapentin [Neurontin] 600 mg PO TID 06/16/13 01/20/17 Sertraline [Zoloft] 100 mg PO DAILY 06/16/13 09/04/18 Atenolol 50 mg PO DAILY 12/19/15 01/20/17 Cyclobenzaprine [Flexeril] 10 mg PO TID PRN 12/19/15 01/20/[address] [Voltaren] 75 mg PO BIDWM 12/19/15 01/20/17 Hydroxyzine HCl 25 mg PO TID 12/19/15 01/20/17 Lisinopril 20 mg PO DAILY 12/19/15 09/04/18 Omeprazole [PriLOSEC] 40 mg PO BID 12/19/15 09/04/18 Prazosin HCl [Minipress] 4 mg PO DAILY PM 12/19/15 09/04/18 buPROPion [Wellbutrin Sr] 150 mg PO BID 12/19/15 09/04/18 Atorvastatin Calcium 40 mg PO DAILY 01/20/17 01/20/17 hydrOXYzine pamoate [Hydroxyzine 25 mg PO TID 01/20/17 09/04/18 Pamoate] Metoclopramide [Reglan] 10 mg PO Q6H PRN #20 tablet 09/05/18 - Allergies Allergies/Adverse Reactions: Allergies Allergy/AdvReac Type Severity Reaction Status Date / Time bee venom protein (honey bee) Allergy Unknown Verified 09/23/18 12:56 - Social History Does the pt smoke?: No Smoking Status: Former smoker (quit 1991) Does the pt drink ETOH?: No Does the pt have substance abuse?: Yes - Immunizations Immunizations are current?: Yes Immunizations: TDAP >10years/unknown PD ED PE NORMAL - Vitals Vital signs reviewed: Yes - General General: Alert and oriented X 3, No acute distress, Well developed/nourished - HEENT HEENT: PERRL, Moist mucous membranes - Neck Neck: Supple, no meningeal sign - Cardiac Cardiac: RRR, Strong equal pulses - Respiratory Respiratory: No respiratory distress, Clear bilaterally - Abdomen Abdomen: Soft, Non tender, Non distended - Back Back: No spinal TTP - Derm Derm: Warm and dry - Extremities Extremities: No edema, No calf tenderness / cord - Neuro Neuro: Alert and oriented X 3, parts sales associate 2-12 intact, No motor deficit, No sensory deficit, Normal speech - Psych Psych: Normal mood, Normal affect Results - Vitals Vitals: Vital Signs - 24 hr 10/04/19 10/04/19 10/04/19 14:47 15:15 15:25 Heart Rate 140 H Respiratory Rate Blood Pressure 164/98 H 138/76 H 162/104 H O2 Saturation 10/04/19 10/04/19 10/04/19 15:29 15:40 16:15 Heart Rate 108 H Respiratory 21 Rate Blood Pressure 138/76 H 162/104 H 170/94 H O2 Saturation 10/04/19 17:44 Heart Rate 117 H Respiratory 17 Rate Blood Pressure 184/129 H O2 Saturation 100 Oxygen O2 Source Nasal cannula - EKG (time done) 1451 Rate: Rate (enter#) (115) Rhythm: Sinus tachycardia [place]: Normal Intervals: Normal [place] QRS: Normal Ischemia: Normal ST segments - Labs Labs: Laboratory Tests 10/04/19 10/04/19 10/04/19 15:15 15:15 15:15 WBC 15.2 H RBC 4.74 Hgb 15.3 Hct 44.0 MCV 92.8 MCH 32.3 H MCHC 34.8 RDW 13.3 Plt Count 299 MPV 9.7 Neut # (Auto) 12.6 H Lymph # (Auto) 1.3 L [place] # (Auto) 1.1 H Eos # (Auto) 0.1 Baso # (Auto) 0.1 Absolute Nucleated RBC 0.00 Nucleated RBC % 0.0 Sodium 141 Potassium 3.3 L Chloride 105 Carbon Dioxide 16 L Anion Gap 20.0 H BUN 13 Creatinine 1.2 Estimated GFR (MDRD) 60 L Glucose 120 H Calcium 9.7 Phosphorus 2.8 Magnesium 1.9 Total Bilirubin 1.7 H AST 36 ALT 19 Alkaline Phosphatase 43 Troponin I High Sens 19.0 Total Protein 7.3 Albumin 4.7 Globulin 2.6 Albumin/Globulin Ratio 1.8 Lipase 41 Ethyl Alcohol 10/04/19 15:15 WBC RBC Hgb Hct MCV MCH MCHC RDW Plt Count MPV Neut # (Auto) Lymph # (Auto) [place] # (Auto) Eos # (Auto) Baso # (Auto) Absolute Nucleated RBC Nucleated RBC % Sodium Potassium Chloride Carbon Dioxide Anion Gap BUN Creatinine Estimated GFR (MDRD) Glucose Calcium Phosphorus Magnesium Total Bilirubin AST ALT Alkaline Phosphatase Troponin I High Sens Total Protein Albumin Globulin Albumin/Globulin Ratio Lipase Ethyl Alcohol < 5.0 - Rads (name of study) cxr Radiology: Prelim report reviewed, EMP read contemporaneously, See rad report (Negative for acute cardiopulmonary process. ) PD MEDICAL DECISION MAKING - ED course Complexity details: reviewed results, re-evaluated patient, considered differential, d/w patient, d/w family, d/w toy consultant ED course: 69-year-old male presents the emergency department with acute on chronic low back pain. While in the emergency department he had an episode of polymorphic ventricular tachycardia versus torsades to points. Given magnesium, potassium replaced given amiodarone. A total of 4 mg of magnesium given in. He is on multiple QT prolonging agents. Discussed the case with cardiology, Dr. Raphael Lutz who recommends stopping the Wellbutrin, Flexeril, Reglan and tapering off the Zoloft. Also recommends replacing the electrolytes and starting amiodarone. I discussed the case with Dr. Gutierrez, hospitalist here who is not comfortable keeping the patient here. I recontacted Em[facility] in [place] and Dr. Olsen accepts the patient in transfer. 1800. COBRA forms completed This document was made in part using voice recognition software. While efforts are made to proofread this document, sound alike and grammatical errors may occur. Just prior to transfer, the patient states that he quit taking all of his medications 1 year ago. He did not want to tell his . He states that he is also passed out several times and did not want his to know either. Departure - Departure Disposition: 02 Transfer Acute Care Hosp Clinical Impression: Torsades de pointes Condition: Stable
[2019-10-04 15:34] LABS: ALBUMIN 4.7 g/dL (3.2-5.5); ALBUMIN/GLOBULIN RATIO 1.8 (1.0-2.2); BILIRUBIN,TOTAL 1.7 mg/dL (0.2-1.0); CALCIUM 9.7 mg/dL (8.5-10.3); CREATININE 1.2 mg/dL (0.6-1.2); MAGNESIUM 1.9 mg/dL (1.7-2.8); PHOSPHORUS 2.8 mg/dL (2.5-4.6); TOTAL PROTEIN 7.3 g/dL (6.7-8.2)
--- NOTE | 2019-10-04 16:16 | XRAY Report ---
Reason: arrhythmia Procedure Date: 10/04/2019 Accession Number: [id number] / [id number] Procedure: XR - Chest 1 View X-Ray CPT Code: 84157 Final Report FULL RESULT: EXAM: CHEST RADIOGRAPHY EXAM DATE: 10/04/2019 03:57 PM. CLINICAL HISTORY: Arrhythmia. COMPARISON: CHEST W/ 08/01/2018 8:04 AM. TECHNIQUE: 1 view. FINDINGS: Lungs/Pleura: No focal opacities evident. No pleural effusion. No pneumothorax. Mediastinum: Heart size is normal. Other: Remote healed right posterolateral ninth and 10th rib fractures. Mid left chest external defibrillator. IMPRESSION: Negative for acute cardiopulmonary process. RADIA
[2019-10-04] MEDS ORDERED: SODIUM CHLORIDE 0.9% 1,000 ML IV ONE ×2 (16:54)
[2019-10-04] MEDS ORDERED: HYDROmorphone 1 MG/ML CARPUJECT IVP STA (17:49)
[2019-10-04] MEDS ORDERED: POTASSIUM CHLORIDE 20 MEQ TABLET PO STA (17:55)
[2019-10-04] MEDS ORDERED: LABETALOL 5 MG/1 ML 20 ML MDV IVP STA (18:35)
[2019-10-04 18:39] LABS: MUDS CUTOFF CONCENTRATIONS CUTOFF CONC BELOW:
[2019-10-04 18:44] LABS: GLUCOSE, URINE (UA) NEGATIVE (NEGATIVE); KETONES,URINE (UA) >=80 mg/dL (NEGATIVE); LEUKOCYTE ESTERASE, URINE NEGATIVE (NEGATIVE); NITRITE,URINE NEGATIVE (NEGATIVE); OCCULT BLOOD,URINE NEGATIVE (NEGATIVE); PROTEIN,URINE NEGATIVE (NEGATIVE); UROBILINOGEN,URINE 0.2 (NORMAL) E.U./dL (NORMAL)
[2019-10-04 18:46] LABS: BILIRUBIN,URINE NEGATIVE (NEGATIVE); CLARITY,URINE CLEAR (CLEAR); ICTOTEST,URINE NEGATIVE
[2019-10-04 18:54] LABS: AMPHETAMINE SCREEN,URINE NEGATIVE (NEGATIVE); BENZODIAZEPINES SCREEN, URINE NEGATIVE (NEGATIVE); COCAINE SCREEN URINE NEGATIVE (NEGATIVE); METHADONE SCREEN, URINE NEGATIVE (NEGATIVE); METHAMPHETAMINES SCREEN, URINE NEGATIVE (NEGATIVE); OPIATE SCREEN, URINE NEGATIVE (NEGATIVE); OXYCODONE SCREEN, URINE NEGATIVE (NEGATIVE); PROPOXYPHENE SCREEN, URINE NEGATIVE (NEGATIVE); TRICYCLIC ANTIDEPRESSANT,URINE NEGATIVE (NEGATIVE)
[2019-10-04 19:27] VITALS: BP 164/116
== END 2019-10-04 19:28 | disposition short-term general hospital (02) ==
LOC: EDUNIT# → ED 14:45
DX: I47.2 Ventricular tachycardia (principal); I10 Essential (primary) hypertension; Z87.891 Personal history of nicotine dependence
CPT/HCPCS: 36415; 71045; 80053; 81003; 83690; 83735; 84100; 84484; 85025; 93005; 96361; 96365; 96367; 96368; 96375; 99284; 99285; A9270; J0282; J1170; 80306; 80320; 81001; 87086

== ENCOUNTER 2019-10-04 19:28 | Outpatient (CLI) | payer MEDICARE, OTHER | END 2019-10-04 19:29 | disposition short-term general hospital (02) | LOC: EMS 19:28 | PROVIDERS: ATTEND Surgery | DX: I47.2 Ventricular tachycardia (principal) | CPT/HCPCS: A0425; A0426 ==

== ENCOUNTER 2020-02-10 07:25 | Outpatient (CLI) | payer MEDICARE, OTHER | END 2020-02-10 07:26 | disposition critical access hospital (66) | LOC: EMS 07:25 | PROVIDERS: ATTEND Surgery | DX: R11.2 Nausea with vomiting, unspecified (principal); R61 Generalized hyperhidrosis | CPT/HCPCS: A0425; A0429 ==

== ENCOUNTER 2020-02-10 07:34 | Emergency (ER) | payer MEDICARE, OTHER ==
[2020-02-10] MEDS ORDERED: ONDANSETRON 4 MG/2 ML VIAL IVP STA ×2 (07:43→12:40)
[2020-02-10] MEDS ORDERED: SODIUM CHLORIDE 0.9% 1,000 ML IV STA ×2 (07:43→13:07)
[2020-02-10 08:13] LABS: BASOPHILS # (AUTO) 0.1 10^3/uL (0.0-0.1); BASOPHILS % (AUTO) 0.6 %; EOSINOPHILS # (AUTO) 0.3 10^3/uL (0.0-0.7); EOSINOPHILS % (AUTO) 2.7 %; HGB - HEMOGLOBIN 16.7 g/dL (14.0-18.0); LYMPHOCYTES # (AUTO) 1.7 10^3/uL (1.5-3.5); MEAN CORPUSCULAR HEMOGLOBIN 32.6 pg (27.0-31.0); MEAN CORPUSCULAR HGB CONC 35.1 g/dL (32.0-36.0); MEAN PLATELET VOLUME 9.8 fL (7.4-11.4); MONOCYTES # (AUTO) 0.6 10^3/uL (0.0-1.0); MONOCYTES % (AUTO) 4.8 %; NEUTROPHILS # (AUTO) 9.4 10^3/uL (1.5-6.6); NEUTROPHILS % (AUTO) 77.2 %; PLT - PLATELET COUNT 384 10^3/uL (130-450); RED BLOOD COUNT 5.12 10^6/uL (4.70-6.10); RED CELL DISTRIBUTION WIDTH 13.1 % (12.0-15.0); WHITE BLOOD COUNT 12.2 x10^3/uL (4.8-10.8)
[2020-02-10 08:28] LABS: ALBUMIN 5.1 g/dL (3.2-5.5); ALBUMIN/GLOBULIN RATIO 1.5 (1.0-2.2); BILIRUBIN,TOTAL 1.5 mg/dL (0.2-1.0); CALCIUM 10.1 mg/dL (8.5-10.3); CREATININE 0.9 mg/dL (0.6-1.2); TOTAL PROTEIN 8.6 g/dL (6.7-8.2)
[2020-02-10] MEDS ORDERED: FOLIC ACID INJ 1 MG, THIAMINE INJ 100 MG, MAGNESIUM SULFATE 2 GM, MULTIVITAMIN 10 ML in... IV STA ×5 (10:22)
[2020-02-10] MEDS ORDERED: MAGNESIUM SULFATE 2 GRAM 2 GM/50 ML BAG IV ONE (10:22)
--- NOTE | 2020-02-10 10:26 | ED Physician Documentation ---
PD HPI NVD - Stated complaint Stated Complaint: N/V - Chief complaint Chief Complaint: Abd Pain - History obtained from History obtained from: Patient, Family - History of Present Illness Timing - onset: How many days ago (3) Timing - duration: Days (3) Timing - details: Gradual onset, Still present, Waxing and waning Associated symptoms: Abdominal pain, Near syncope / syncope, Loss of appetite, Weight loss Contributing factors: Other (cannabis use) Improved by: Vomiting Worsened by: Eating Similar symptoms before: Diagnosis (cannabis hyperemesis) Recently seen: Emergency Dept, Transferred - Additonal information Additional information: 69-year-old male with a history of chronic back pain hypertension has developed nausea and vomiting over the past 3 days and today he was unable to stop vomiting he was retching retching retching and his called 911. Patient was transported to the hospital and a BLS rig and arrives diaphoretic and retching. The patient has a recent history of torsades while he was in the emergency department in September of this year. He required transfer and he has since resolved his symptoms. He indicates that he had stopped all of his medications prior to that visit for about 1 year. He is now taking his medications but has not taken them today. He does smoke cannabis and smokes it on a regular basis. Review of Systems Constitutional: reports: Chills, Fatigue, Sweats. denies: Fever Eyes: denies: Decreased vision Ears: denies: Ear pain Nose: denies: Rhinorrhea / runny nose, Congestion Throat: denies: Sore throat Cardiac: denies: Chest pain / pressure, Palpitations Respiratory: reports: Dyspnea. denies: Cough GI: reports: Abdominal Pain, Nausea, Vomiting : denies: Dysuria, Frequency PD PAST MEDICAL HISTORY - Past Medical History Past Medical History: Yes Cardiovascular: Hypertension, High cholesterol Respiratory: None Neuro: CVA Endocrine/Autoimmune: None GI: None : None HEENT: None Psych: Depression, Anxiety, Post traumatic stress disorder Musculoskeletal: Osteoarthritis, Other Derm: Other - Past Surgical History Past Surgical History: No General: Bowel surgery Ortho: Other - Present Medications Home Medications: Ambulatory Orders Medication Instructions Recorded Confirmed Gabapentin [Neurontin] 600 mg PO TID 06/16/13 01/20/17 Sertraline [Zoloft] 100 mg PO DAILY 06/16/13 09/04/18 Atenolol 50 mg PO DAILY 12/19/15 01/20/17 Cyclobenzaprine [Flexeril] 10 mg PO TID PRN 12/19/15 01/20/[address] [Voltaren] 75 mg PO BIDWM 12/19/15 01/20/17 Hydroxyzine HCl 25 mg PO TID 12/19/15 01/20/17 Lisinopril 20 mg PO DAILY 12/19/15 09/04/18 Omeprazole [PriLOSEC] 40 mg PO BID 12/19/15 09/04/18 Prazosin HCl [Minipress] 4 mg PO DAILY PM 12/19/15 09/04/18 buPROPion [Wellbutrin Sr] 150 mg PO BID 12/19/15 09/04/18 Atorvastatin Calcium 40 mg PO DAILY 01/20/17 01/20/17 hydrOXYzine pamoate [Hydroxyzine 25 mg PO TID 01/20/17 09/04/18 Pamoate] Metoclopramide [Reglan] 10 mg PO Q6H PRN #20 tablet 09/05/18 Ondansetron Odt [Zofran] 4 mg TL Q6H PRN #10 tablet 02/10/20 - Allergies Allergies/Adverse Reactions: Allergies Allergy/AdvReac Type Severity Reaction Status Date / Time bee venom protein (honey bee) Allergy Unknown Verified 09/23/18 12:56 - Social History Does the pt smoke?: No Smoking Status: Never smoker Does the pt drink ETOH?: No Does the pt have substance abuse?: Yes - Immunizations Immunizations are current?: Yes Immunizations: TDAP >10years/unknown PD ED PE NORMAL - Vitals Vital signs reviewed: Yes (Hypertensive) - General General: Well developed/nourished, Other (The patient initially is diaphoretic and retching. After fluid and Zofran the patient is happy alert conversant and without symptoms. He indicates that he would not of come to the hospital today had his not called the ambulance.) - HEENT HEENT: Atraumatic, PERRL, EOMI - Neck Neck: Supple, no meningeal sign, No bony TTP - Cardiac Cardiac: RRR, No murmur - Respiratory Respiratory: No respiratory distress, Clear bilaterally - Abdomen Abdomen: Normal bowel sounds, Soft, Non tender, Non distended, No organomegaly - Back Back: No CVA TTP, No spinal TTP - Derm Derm: Normal color, Warm and dry, No rash - Extremities Extremities: No deformity, No tenderness to palpate, Normal ROM s pain, No edema, No calf tenderness / cord - Neuro Neuro: Alert and oriented X 3, clinical technician 2-12 intact, No motor deficit, No sensory deficit, Normal speech Eye Opening: Spontaneous Motor: Obeys Commands Verbal: Oriented GCS Score: 15 - Psych Psych: Normal mood, Normal affect Results - Vitals Vitals: Vital Signs - 24 hr 02/10/20 02/10/20 02/10/20 07:36 11:30 13:27 Temperature 36.6 C Heart Rate 86 84 80 Respiratory 24 24 20 Rate Blood Pressure 182/100 H 162/101 H 188/113 H O2 Saturation 96 100 100 02/10/20 02/10/20 15:46 16:06 Temperature 37.1 C 36.8 C Heart Rate 86 76 Respiratory 21 16 Rate Blood Pressure 181/104 H 176/88 H O2 Saturation 99 97 Oxygen O2 Source Room air - EKG (time done) 1036 Rate: Rate (enter#) (74) Rhythm: NSR Intervals: Prolonged QT (borderline) Compare to prior EKG: Unchanged from prior EKG (10-04-2019 rate has decreased otherwise no sig dif. ) Computer interpretation: Agree with computer - Labs Labs: Laboratory Tests 02/10/20 02/10/20 02/10/20 07:45 07:45 07:45 WBC 12.2 H RBC 5.12 Hgb 16.7 Hct 47.6 MCV 93.0 MCH 32.6 H MCHC 35.1 RDW 13.1 Plt Count 384 MPV 9.8 Neut # (Auto) 9.4 H Lymph # (Auto) 1.7 [place] # (Auto) 0.6 Eos # (Auto) 0.3 Baso # (Auto) 0.1 Absolute Nucleated RBC 0.00 Nucleated RBC % 0.0 Sodium 138 Potassium 3.3 L Chloride 101 Carbon Dioxide 16 L Anion Gap 21.0 H BUN 12 Creatinine 0.9 Estimated GFR (MDRD) 84 L Glucose 185 H Lactic Acid Calcium 10.1 Magnesium 2.1 Total Bilirubin 1.5 H AST 29 ALT 24 Alkaline Phosphatase 65 Total Protein 8.6 H Albumin 5.1 Globulin 3.5 Albumin/Globulin Ratio 1.5 Lipase 45 Urine Color Urine Clarity Urine pH Ur Specific [place] Urine Protein Urine Glucose (UA) Urine Ketones Urine Occult Blood Urine Nitrite Urine Bilirubin Urine Urobilinogen Ur Leukocyte Esterase Ur Microscopic Review Urine Culture Comments 02/10/20 02/10/20 02/10/20 08:05 12:30 14:14 WBC RBC Hgb Hct MCV MCH MCHC RDW Plt Count MPV Neut # (Auto) Lymph # (Auto) [place] # (Auto) Eos # (Auto) Baso # (Auto) Absolute Nucleated RBC Nucleated RBC % Sodium Potassium Chloride Carbon Dioxide Anion Gap BUN Creatinine Estimated GFR (MDRD) Glucose Lactic Acid 4.9 H* 2.6 H Calcium Magnesium Total Bilirubin AST ALT Alkaline Phosphatase Total Protein Albumin Globulin Albumin/Globulin Ratio Lipase Urine Color YELLOW Urine Clarity CLEAR Urine pH 6.0 Ur Specific [place] >=1.030 H Urine Protein NEGATIVE Urine Glucose (UA) NEGATIVE Urine Ketones 40 H Urine Occult Blood NEGATIVE Urine Nitrite NEGATIVE Urine Bilirubin NEGATIVE Urine Urobilinogen 0.2 (NORMAL) Ur Leukocyte Esterase NEGATIVE Ur Microscopic Review NOT INDICATED Urine Culture Comments NOT INDICATED PD MEDICAL DECISION MAKING - ED course Complexity details: reviewed old records, reviewed results, re-evaluated patient, considered differential, d/w patient, d/w family ED course: 69-year-old male with acute nausea and vomiting responds well to Zofran given intravenously. He is hydrated he does require some Ativan and we have given him his dose of gabapentin. He responds well to treatment. Departure - Departure Disposition: 01 Home, Self Care Clinical Impression: Vomiting Qualifiers: Vomiting type: cyclical vomiting syndrome unrelated to migraine Qualified Code(s): R11.15 - Cyclical vomiting syndrome unrelated to migraine Condition: Stable Instructions: ED Diet Vomiting Diarrhea, ED Nausea Vomiting Follow-Up: Jorden Mann MD [Primary Care Provider] - Prescriptions: Ondansetron Odt [Zofran] 4 mg TL Q6H PRN #10 tablet PRN Reason: Nausea / Vomiting Discharge Date/Time: 02/10/20 16:08
[2020-02-10 12:37] LABS: BILIRUBIN,URINE NEGATIVE (NEGATIVE); GLUCOSE, URINE (UA) NEGATIVE (NEGATIVE); KETONES,URINE (UA) 40 mg/dL (NEGATIVE); LEUKOCYTE ESTERASE, URINE NEGATIVE (NEGATIVE); NITRITE,URINE NEGATIVE (NEGATIVE); OCCULT BLOOD,URINE NEGATIVE (NEGATIVE); PROTEIN,URINE NEGATIVE (NEGATIVE); UROBILINOGEN,URINE 0.2 (NORMAL) E.U./dL (NORMAL)
[2020-02-10 12:43] LABS: CLARITY,URINE CLEAR (CLEAR)
[2020-02-10] MEDS ORDERED: LORazepam 2 MG/ML VIAL IVP STA (14:41)
[2020-02-10] MEDS ORDERED: GABAPENTIN 100 MG CAPSULE PO STA (14:41)
[2020-02-10] MEDS ORDERED: atenoloL 25 MG TABLET PO STA (14:56)
[2020-02-10 16:07] VITALS: BP 176/88
== END 2020-02-10 16:08 | disposition home or self-care (01) ==
LOC: EDUNIT# → ED 07:34
DX: R11.15 Cyclical vomiting syndrome unrelated to migraine (principal); I10 Essential (primary) hypertension
CPT/HCPCS: 36415; 80053; 81003; 83605; 83690; 83735; 85025; 87040; 93005; 96361; 96365; 96366; 96375; 96376; 99284; A9270; J2060; J3411; 81001; 87086

== ENCOUNTER 2020-02-29 15:02 | Emergency (ER) | payer MEDICARE, OTHER ==
[2020-02-29 15:28] LABS: BASOPHILS # (AUTO) 0.1 10^3/uL (0.0-0.1); BASOPHILS % (AUTO) 0.4 %; EOSINOPHILS % (AUTO) 0.2 %; HGB - HEMOGLOBIN 16.2 g/dL (14.0-18.0); LYMPHOCYTES # (AUTO) 1.6 10^3/uL (1.5-3.5); LYMPHOCYTES % (AUTO) 9.2 %; MEAN CORPUSCULAR HEMOGLOBIN 32.4 pg (27.0-31.0); MEAN CORPUSCULAR VOLUME 92.6 fL (80.0-94.0); MEAN PLATELET VOLUME 9.6 fL (7.4-11.4); MONOCYTES # (AUTO) 0.8 10^3/uL (0.0-1.0); NEUTROPHILS # (AUTO) 14.3 10^3/uL (1.5-6.6); NEUTROPHILS % (AUTO) 84.4 %; PLT - PLATELET COUNT 421 10^3/uL (130-450); RED CELL DISTRIBUTION WIDTH 12.7 % (12.0-15.0); WHITE BLOOD COUNT 16.9 x10^3/uL (4.8-10.8)
[2020-02-29 15:43] LABS: ALBUMIN/GLOBULIN RATIO 1.5 (1.0-2.2); BILIRUBIN,TOTAL 1.5 mg/dL (0.2-1.0); CALCIUM 10.4 mg/dL (8.5-10.3); CREATININE 1.1 mg/dL (0.6-1.2); TOTAL PROTEIN 8.4 g/dL (6.7-8.2)
[2020-02-29] MEDS ORDERED: ONDANSETRON 4 MG/2 ML VIAL ONE (16:30)
[2020-02-29] MEDS ORDERED: FOLIC ACID INJ 1 MG, THIAMINE INJ 100 MG, MAGNESIUM SULFATE 2 GM, MULTIVITAMIN 10 ML in... IV STA ×5 (16:49)
[2020-02-29] MEDS ORDERED: LORazepam 2 MG/ML VIAL IVP STA (16:52)
[2020-02-29] MEDS ORDERED: HALOPERIDOL 5 MG/ML VIAL IVP ONE (16:52)
--- NOTE | 2020-02-29 16:53 | ED Physician Documentation ---
PD HPI NVD - Stated complaint Stated Complaint: N/V - Chief complaint Chief Complaint: Abd Pain - History obtained from History obtained from: Patient, Family - History of Present Illness Timing - onset: Today Timing - duration: Hours Timing - details: Abrupt onset, Still present Associated symptoms: Abdominal pain Contributing factors: Other (history of cyclical vomiting) Improved by: Vomiting Worsened by: Eating Similar symptoms before: Diagnosis (cyclical vomiting) Recently seen: Emergency Dept - Additonal information Additional information: 69-year-old male has developed cyclical vomiting and on his initial episode we treated him here for he had an episode of torsades. Today he indicates that he felt well when he awoke and somewhat later in the morning he began to feel some change in his abdomen he went to wash his truck and he has been vomiting. He did not take his medications this morning. Review of Systems Constitutional: denies: Fever Eyes: denies: Decreased vision Ears: denies: Ear pain Nose: denies: Congestion Throat: denies: Sore throat Cardiac: denies: Chest pain / pressure, Palpitations Respiratory: denies: Dyspnea, Cough GI: reports: Abdominal Pain, Nausea, Vomiting : denies: Dysuria, Frequency PD PAST MEDICAL HISTORY - Past Medical History Cardiovascular: Hypertension, High cholesterol Respiratory: None Neuro: CVA Endocrine/Autoimmune: None GI: None : None HEENT: None Psych: Depression, Anxiety, Post traumatic stress disorder Musculoskeletal: Osteoarthritis, Other Derm: Other - Past Surgical History Past Surgical History: No General: Bowel surgery Ortho: Other - Present Medications Home Medications: Ambulatory Orders Medication Instructions Recorded Confirmed Gabapentin [Neurontin] 600 mg PO TID 06/16/13 01/20/17 Sertraline [Zoloft] 100 mg PO DAILY 06/16/13 09/04/18 Atenolol 50 mg PO DAILY 12/19/15 01/20/17 Cyclobenzaprine [Flexeril] 10 mg PO TID PRN 12/19/15 01/20/[address] [Voltaren] 75 mg PO BIDWM 12/19/15 01/20/17 Hydroxyzine HCl 25 mg PO TID 12/19/15 01/20/17 Lisinopril 20 mg PO DAILY 12/19/15 09/04/18 Omeprazole [PriLOSEC] 40 mg PO BID 12/19/15 09/04/18 Prazosin HCl [Minipress] 4 mg PO DAILY PM 12/19/15 09/04/18 buPROPion [Wellbutrin Sr] 150 mg PO BID 12/19/15 09/04/18 Atorvastatin Calcium 40 mg PO DAILY 01/20/17 01/20/17 hydrOXYzine pamoate [Hydroxyzine 25 mg PO TID 01/20/17 09/04/18 Pamoate] Metoclopramide [Reglan] 10 mg PO Q6H PRN #20 tablet 09/05/18 Ondansetron Odt [Zofran] 4 mg TL Q6H PRN #10 tablet 02/10/20 - Allergies Allergies/Adverse Reactions: Allergies Allergy/AdvReac Type Severity Reaction Status Date / Time bee venom protein (honey bee) Allergy Unknown Verified 02/29/20 15:05 - Social History Does the pt smoke?: No Smoking Status: Never smoker Does the pt drink ETOH?: No Does the pt have substance abuse?: Yes - Immunizations Immunizations are current?: Yes Immunizations: TDAP >10years/unknown PD ED PE NORMAL - Vitals Vital signs reviewed: Yes - General General: Alert and oriented X 3, Well developed/nourished, Other (appears anxious and nauseous) - HEENT HEENT: Atraumatic, PERRL, EOMI - Neck Neck: Supple, no meningeal sign, No bony TTP - Cardiac Cardiac: RRR, No murmur - Respiratory Respiratory: No respiratory distress, Clear bilaterally - Abdomen Abdomen: Soft, Other (mild general tenderness) - Back Back: No CVA TTP, No spinal TTP - Derm Derm: Normal color, Warm and dry, No rash - Extremities Extremities: No deformity, Normal ROM s pain, No edema - Neuro Neuro: Alert and oriented X 3, nurse rn bsn 2-12 intact, No motor deficit, No sensory deficit, Normal speech Eye Opening: Spontaneous Motor: Obeys Commands Verbal: Oriented GCS Score: 15 - Psych Psych: Normal affect, Other (mood is anxious ) Results - Vitals Vitals: Vital Signs - 24 hr 02/29/20 02/29/20 15:05 16:07 Temperature 36.6 C Heart Rate 100 83 Respiratory 20 25 H Rate Blood Pressure 160/100 H O2 Saturation 100 100 Oxygen O2 Source Room air - Labs Labs: Laboratory Tests 02/29/20 02/29/20 15:22 15:22 WBC 16.9 H RBC 5.00 Hgb 16.2 Hct 46.3 MCV 92.6 MCH 32.4 H MCHC 35.0 RDW 12.7 Plt Count 421 MPV 9.6 Neut # (Auto) 14.3 H Lymph # (Auto) 1.6 [place] # (Auto) 0.8 Eos # (Auto) 0.0 Baso # (Auto) 0.1 Absolute Nucleated RBC 0.00 Nucleated RBC % 0.0 Sodium 142 Potassium 4.7 Chloride 106 Carbon Dioxide 19 L Anion Gap 17.0 H BUN 18 Creatinine 1.1 Estimated GFR (MDRD) 67 L Glucose 174 H Calcium 10.4 H Total Bilirubin 1.5 H AST 32 ALT 35 Alkaline Phosphatase 63 Total Protein 8.4 H Albumin 5.0 Globulin 3.5 Albumin/Globulin Ratio 1.5 Lipase 50 PD MEDICAL DECISION MAKING - ED course Complexity details: reviewed old records, reviewed results, re-evaluated patient, considered differential, d/w patient, d/w family ED course: 69-year-old male with history of cyclical vomiting has developed vomiting again he has some abdominal pain associated with this but did not get relief with sublingual Zofran today. Here in the emergency department he is administered a banana bag intravenously he is given 2 mg of Haldol 1 mg of Ativan and 4 mg of Zofran and he feels much improved and wants to go home. Departure - Departure Disposition: 01 Home, Self Care Clinical Impression: Cyclical vomiting Condition: Stable Instructions: ED Nausea Vomiting Follow-Up: Jorden Mann MD [Primary Care Provider] -
[2020-02-29 18:38] VITALS: BP 134/108
== END 2020-02-29 18:44 | disposition home or self-care (01) ==
LOC: ED 15:02
DX: R11.15 Cyclical vomiting syndrome unrelated to migraine (principal); R10.9 Unspecified abdominal pain; I10 Essential (primary) hypertension
CPT/HCPCS: 36415; 80053; 83690; 85025; 96365; 96375; 99284; J2060; J3411

== ENCOUNTER 2021-02-06 11:45 | Outpatient (CLI) | payer MEDICARE, OTHER | END 2021-02-06 11:46 | disposition critical access hospital (66) | LOC: EMS 11:45 | DX: R11.10 Vomiting, unspecified (principal); R61 Generalized hyperhidrosis; R10.9 Unspecified abdominal pain; R53.1 Weakness | CPT/HCPCS: A0425; A0427 ==

== ENCOUNTER 2021-02-06 11:50 | Emergency (ER) | payer MEDICARE, OTHER ==
[2021-02-06 12:16] LABS: BASOPHILS % (AUTO) 0.2 %; EOSINOPHILS % (AUTO) 0.1 %; HCT - HEMATOCRIT 44.6 % (42.0-52.0); HGB - HEMOGLOBIN 15.4 g/dL (14.0-18.0); LYMPHOCYTES # (AUTO) 1.2 10^3/uL (1.5-3.5); LYMPHOCYTES % (AUTO) 8.2 %; MEAN CORPUSCULAR HEMOGLOBIN 31.6 pg (27.0-31.0); MEAN CORPUSCULAR HGB CONC 34.5 g/dL (32.0-36.0); MEAN CORPUSCULAR VOLUME 91.4 fL (80.0-94.0); MEAN PLATELET VOLUME 9.6 fL (7.4-11.4); MONOCYTES # (AUTO) 0.7 10^3/uL (0.0-1.0); MONOCYTES % (AUTO) 4.6 %; NEUTROPHILS % (AUTO) 86.4 %; PLT - PLATELET COUNT 300 10^3/uL (130-450); RED BLOOD COUNT 4.88 10^6/uL (4.70-6.10); WHITE BLOOD COUNT 15.1 x10^3/uL (4.8-10.8)
[2021-02-06 12:28] LABS: ALBUMIN 4.7 g/dL (3.2-5.5); ALBUMIN/GLOBULIN RATIO 1.6 (1.0-2.2); BILIRUBIN,TOTAL 1.4 mg/dL (0.2-1.0); CALCIUM 9.4 mg/dL (8.5-10.3); POTASSIUM 3.9 mmol/L (3.5-5.0); TOTAL PROTEIN 7.6 g/dL (6.7-8.2)
[2021-02-06] MEDS ORDERED: IOVERSOL 320 100 ML VIAL IVP ONE ×2 (12:56→17:27)
[2021-02-06] MEDS ORDERED: SODIUM CHLORIDE 0.9% 1,000 ML IV STA (13:44)
--- NOTE | 2021-02-06 13:47 | ED Physician Documentation ---
History of Present Illness - Stated complaint Stated Complaint: N/V - Chief complaint Chief Complaint: Abd Pain - Additonal information Additional information: 70-year-old male presents to the emergency department for evaluation of acute nausea and vomiting that woke him up from sleep this morning. He reports that he did not take any of his routine medications yesterday due to the heat. He did not have any abdominal pain with vomiting. No chest pain or shortness of air. His summoned 911 and he was given Zofran in route with markedly improved his symptoms. He has had this similarly in the past and often takes meclizine or Dramamine to help with the nausea. He does smoke cannabis though he does not think that contributed to the symptoms and he has not recently with the heat. Surgical history includes bowel resection for incarcerated hernia Review of Systems Constitutional: denies: Fever, Chills Eyes: reports: Reviewed and negative Nose: reports: Reviewed and negative Throat: reports: Reviewed and negative Cardiac: reports: Reviewed and negative Respiratory: reports: Reviewed and negative GI: reports: Nausea, Vomiting. denies: Abdominal Pain : denies: Dysuria, Frequency Skin: denies: Rash, Lesions Musculoskeletal: reports: Reviewed and negative PD PAST MEDICAL HISTORY - Past Medical History Past Medical History: Yes Cardiovascular: Hypertension, High cholesterol Respiratory: None Neuro: CVA, Tremors Endocrine/Autoimmune: None GI: GERD, Other : None HEENT: None Psych: Depression, Anxiety, Post traumatic stress disorder Musculoskeletal: Osteoarthritis, Other Derm: Other - Past Surgical History Past Surgical History: Yes General: Bowel surgery Ortho: Other - Present Medications Home Medications: Ambulatory Orders Medication Instructions Recorded Confirmed Gabapentin [Neurontin] 600 mg PO TID 06/16/13 02/06/21 Sertraline [Zoloft] 100 mg PO DAILY 06/16/13 02/06/21 Atenolol 50 mg PO DAILY PM 12/19/15 02/06/21 Cyclobenzaprine [Flexeril] 10 mg PO TID PRN 12/19/15 02/06/[address] [Voltaren] 75 mg PO BIDWM 12/19/15 02/06/21 Lisinopril 20 mg PO DAILY 12/19/15 02/06/21 Omeprazole [PriLOSEC] 40 mg PO BID 12/19/15 02/06/21 Prazosin HCl [Minipress] 4 mg PO DAILY PM 12/19/15 02/06/21 buPROPion [Wellbutrin Sr] 150 mg PO BID 12/19/15 02/06/21 Atorvastatin Calcium 40 mg PO DAILY 01/20/17 02/06/21 hydrOXYzine pamoate [Hydroxyzine 25 mg PO TID 01/20/17 02/06/21 Pamoate] Metoclopramide [Reglan] 10 mg PO Q6H PRN #20 tablet 09/05/18 02/06/21 Ondansetron Odt [Zofran] 4 mg TL Q6H PRN #10 tablet 02/10/20 02/06/21 Ondansetron Odt [Zofran] 4 mg TL Q6H PRN #10 tablet 02/06/21 Propranolol ER [Inderal LA] 60 mg PO DAILY 02/06/21 02/06/21 - Allergies Allergies/Adverse Reactions: Allergies Allergy/AdvReac Type Severity Reaction Status Date / Time bee venom protein (honey bee) Allergy Unknown Verified 02/06/21 11:55 - Social History Does the pt smoke?: No Smoking Status: Former smoker Does the pt drink ETOH?: No Does the pt have substance abuse?: Yes Substance Use and Type: Marijuana - Immunizations Immunizations are current?: Yes Immunizations: TDAP >10years/unknown - POLST Patient has POLST: No PD ED PE EXPANDED - General General: Alert, No acute distress - Cardiac Cardiac: Regular Rate, Radial strong equal, Pedal strong equal, Cap refill < 2 sec - Respiratory Respiratory: Clear to ausultation martin. No: Distress, Labored - Abdomen Abdomen: Normal Bowel sounds, Tender to palpation (Mild diffuse nonfocal tenderness. no guarding or rebound), Surgical scars (Large midline vertical incision that is well-healed.) - Derm Derm: Normal color, Warm and dry. No: Rash - Extremities Extremities: Normal. No: Deformity, Tenderness - Neuro Neuro: Alert and Oriented X 3, CNII-XII intact - GCS Eye Opening: Spontaneous Motor: Obeys Commands Verbal: Oriented Total: 15 Results - Vitals Vitals: Vital Signs - 24 hr 02/06/21 02/06/21 02/06/21 11:55 13:00 13:27 Temperature 36.3 C L Heart Rate 78 91 88 Respiratory 24 28 H 20 Rate Blood Pressure 127/107 H 151/82 H 151/82 H O2 Saturation 100 96 98 Oxygen O2 Source Room air - EKG (time done) 1316 Rate: Rate (enter#) (90) Rhythm: NSR Intervals: Normal [place], Prolonged QT QRS: Normal Ischemia: Normal ST segments Compare to prior EKG: Unchanged from prior EKG Computer interpretation: Agree with computer - Labs Labs: Laboratory Tests 02/06/21 02/06/21 12:09 12:09 WBC 15.1 H RBC 4.88 Hgb 15.4 Hct 44.6 MCV 91.4 MCH 31.6 H MCHC 34.5 RDW 13.0 Plt Count 300 MPV 9.6 Neut # (Auto) 13.0 H Lymph # (Auto) 1.[address] # (Auto) 0.7 Eos # (Auto) 0.0 Baso # (Auto) 0.0 Absolute Nucleated RBC 0.00 Nucleated RBC % 0.0 Sodium 140 Potassium 3.9 Chloride 105 Carbon Dioxide 17 L Anion Gap 18.0 H BUN 14 Creatinine 1.0 Estimated GFR (MDRD) 74 L Glucose 164 H Calcium 9.4 Total Bilirubin 1.4 H AST 28 ALT 22 Alkaline Phosphatase 60 Total Protein 7.6 Albumin 4.7 Globulin 2.9 Albumin/Globulin Ratio 1.6 Lipase 35 - Rads (name of study) CT abd Radiology: Final report received (No acute abnormaliy identified. No free fluid. Small duodenal diverticulum no bowel obstruction. Normal appendix.) PD MEDICAL DECISION MAKING - ED course Complexity details: reviewed results, re-evaluated patient, considered differential, d/w patient, d/w family ED course: This is a 70-year-old male that presents the emergency department for evaluation of nausea and vomiting. This is in the setting of habitual cannabis use. He did not have abdominal pain but did have a history of incarcerated hernia requiring emergent bowel resection in the past. On exam his vital signs are unremarkable. He did have some mild generalized nonfocal abdominal tenderness. Screening labs show a mild leukocytosis however the rest of the electrolytes and urine do not show concerns for infection. A CT of the abdomen shows no findings of a bowel obstruction. This gentleman was given IV fluids as well as Zofran which markedly improved his symptoms and he is now tolerating sips of clear liquids. I suspect that what he may have is some mild dehydration given the recent weather events as well as a component of cannabis use. I have encouraged him to reduce his pot use. I will prescribe some Zofran as it has markedly improved of symptoms here and advised close follow-up with his primary care provider. Departure - Departure Disposition: 01 Home, Self Care Clinical Impression: Nausea and vomiting Qualifiers: Vomiting type: unspecified Vomiting Intractability: non-intractable Qualified Code(s): R11.2 - Nausea with vomiting, unspecified Condition: Stable Record reviewed to determine appropriate education?: Yes Instructions: ED Nausea Vomiting Prescriptions: Ondansetron Odt [Zofran] 4 mg TL Q6H PRN #10 tablet PRN Reason: Nausea / Vomiting Comments: Raymundo you were seen in the ER today for nausea and vomiting. As we discussed your screening labs are all essentially normal with the exception of very mildly elevated white blood cell count. This can be seen sometimes in stress situations. The CT of your abdomen did not show any worrisome findings. I suspect that the cause of your nausea is related to the recent heat event in our area as well as not taking your regularly prescribed medications. Habitual pot use can also cause uncontrolled nausea and vomiting. I do encourage you to reduce or stop smoking pot if you are able. I have prescribed some Zofran to help with the nausea at home. Please discuss this ED visit with your primary care doctor. If at any point you are having worsening symptoms, uncontrolled vomiting fevers or belly pain please return immediately to the ER.
[2021-02-06] MEDS ORDERED: ONDANSETRON 4 MG/2 ML VIAL IVP STA (13:54)
--- NOTE | 2021-02-06 14:03 | CT Report ---
PROCEDURE: Abdomen/Pelvis W INDICATIONS: Nausea and vomiting CONTRAST: IV CONTRAST: Optiray 320 ml: 100 PO CONTRAST: *NO PO CONTRAST TECHNIQUE: After the administration of intravenous contrast, 5 mm thick sections acquired from the diaphragms to the symphysis. 5 mm thick coronal and sagittal reformats were acquired. For radiation dose reducti on, the following was used: automated exposure control, adjustment of mA and/or kV according to suzie ent size. COMPARISON: CT abdomen and pelvis 07/24/2018. FINDINGS: Image quality: Excellent. ABDOMEN: Lung bases: Small calcified granuloma. Lung bases are otherwise clear. Heart size is normal. Solid organs: Liver and spleen are normal in size and enhancement. Gallbladder is distended. No stephen cified gallstones seen. No pericholecystic fluid demonstrated. Biliary system is non dilated. Pancr eas enhances normally. No peripancreatic fluid collection. No adrenal nodules. Kidneys demonstrate normal size and enhancement, without hydronephrosis. Simple appearing left renal cysts are similar to 2018. Peritoneum and bowel: Small duodenal diverticulum is unchanged. Bowel loops demonstrate normal wall thickness and caliber. Normal appendix. No free fluid or air. Nodes and vessels: No retroperitoneal or mesenteric adenopathy by size criteria. Aorta and inferior vena cava are normal in size. Miscellaneous: Small fat-containing periumbilical hernia. PELVIS: Genitourinary: Bladder wall thickness is normal. Miscellaneous: No inguinal hernias or adenopathy. Bones: No suspicious bony lesions. No vertebral body compression fractures. IMPRESSION: No acute abnormality identified. No free fluid. Small duodenal diverticulum. No bowel obstruction. Normal appendix. Reviewed by: Sohan Hernández MD on 02/06/2021 2:01 PM PDT Approved by: Sohan Hernández MD on 02/06/2021 2:01 PM PDT Station ID: [id number]
[2021-02-06 15:17] VITALS: BP 154/109
== END 2021-02-06 15:23 | disposition home or self-care (01) ==
LOC: EDUNIT# → ED 11:50
DX: R11.2 Nausea with vomiting, unspecified (principal); I10 Essential (primary) hypertension; Z87.891 Personal history of nicotine dependence
CPT/HCPCS: 36415; 80053; 83690; 85025; 93005; 96361; 96374; 99283

== ENCOUNTER 2021-08-22 08:00 | Outpatient (CLI) | payer MEDICARE, OTHER ==
[2021-08-22 12:16] LABS: ALBUMIN/GLOBULIN RATIO 1.3 (1.0-2.2); ALKALINE PHOSPHATASE 47 IU/L (42-121); ALT ALANINE AMINOTRANSFERASE 20 IU/L (10-60); AST ASPARTATE AMINOTRANSFERASE 22 IU/L (10-42); BILIRUBIN,TOTAL 0.7 mg/dL (0.2-1.0); BUN - BLOOD UREA NITROGEN 12 mg/dL (6-20); CALCIUM 9.2 mg/dL (8.5-10.3); CARBON DIOXIDE - CO2 27 mmol/L (21-32); CHLORIDE 103 mmol/L (101-111); CHOL/HDL RATIO 3.6 (<5.0); CHOLESTEROL 178 mg/dL; CREATININE 0.8 mg/dL (0.6-1.2); GFR - MDRD 96 (>89); GLUCOSE 116 mg/dL (70-100); HDL CHOLESTEROL 49 mg/dL; LDL CHOLESTEROL,CALCULATED 111 mg/dL; LDL/HDL RATIO 2.3 (<3.6); SODIUM 140 mmol/L (135-145); TOTAL PROTEIN 7.2 g/dL (6.7-8.2); TRIGLYCERIDES 88 mg/dL; VLDL CHOLESTEROL 18 mg/dL
[2021-08-22 12:22] LABS: BASOPHILS % (AUTO) 0.8 %; EOSINOPHILS # (AUTO) 0.4 10^3/uL (0.0-0.7); EOSINOPHILS % (AUTO) 7.6 %; HGB - HEMOGLOBIN 14.6 g/dL (14.0-18.0); LYMPHOCYTES # (AUTO) 1.1 10^3/uL (1.5-3.5); MEAN CORPUSCULAR HEMOGLOBIN 31.1 pg (27.0-31.0); MEAN CORPUSCULAR HGB CONC 32.4 g/dL (32.0-36.0); MEAN CORPUSCULAR VOLUME 95.7 fL (80.0-94.0); MONOCYTES # (AUTO) 0.3 10^3/uL (0.0-1.0); NEUTROPHILS # (AUTO) 2.9 10^3/uL (1.5-6.6); NEUTROPHILS % (AUTO) 61.2 %; PLT - PLATELET COUNT 222 10^3/uL (130-450); RED CELL DISTRIBUTION WIDTH 13.6 % (12.0-15.0); WHITE BLOOD COUNT 4.7 x10^3/uL (4.8-10.8)
[2021-08-22 12:28] LABS: ESTIMATED AVERAGE GLUCOSE 117 mg/dL (70-100); HEMOGLOBIN A1c% 5.7 % (4.27-6.07)
== END 2021-08-22 23:59 ==
LOC: LAB.WCP 08:00
PROVIDERS: ATTEND Family Medicine
DX: E87.6 Hypokalemia (principal); E11.9 Type 2 diabetes mellitus without complications; E83.42 Hypomagnesemia; D75.1 Secondary polycythemia
CPT/HCPCS: 36415; 80053; 80061; 83036; 83721; 83735; 85025

== ENCOUNTER 2021-11-02 16:36 | Outpatient (CLI) | payer MEDICARE, OTHER | END 2021-11-02 16:37 | disposition critical access hospital (66) | LOC: EMS 16:36 | DX: R11.2 Nausea with vomiting, unspecified (principal); R88.8 Abnormal findings in other body fluids and substances | CPT/HCPCS: A0425; A0427 ==

== ENCOUNTER 2021-11-02 16:47 | Emergency (ER) | payer MEDICARE, OTHER ==
--- NOTE | 2021-11-02 17:06 | ED Physician Documentation ---
PD HPI ABD PAIN - Stated complaint Stated Complaint: NAUSEA/VOMITING - Chief complaint Chief Complaint: Abd Pain - History obtained from History obtained from: Patient, EMS - Additional information Additional information: 71-year-old gentleman with history of PTSD, hypertension, hypercholesterolemia and a some sort of incarcerated hernia with resection may be 15 years ago. He started vomiting early this morning. He felt fine when he went to bed last night. It is not associated with any pain (when I ask him if he has pain he responded "no, I left her at home"). He feels slightly better after the administration of Zofran in route. EMS behavioral intervention specialist noted coffee ground emesis on site, not available here for testing for occult blood. Review of Systems Ten Systems: 10 systems reviewed and negative Constitutional: reports: Sweats Cardiac: denies: Chest pain / pressure, Palpitations Respiratory: denies: Dyspnea, Cough GI: denies: Abdominal Pain, Diarrhea PD PAST MEDICAL HISTORY - Past Medical History Past Medical History: Yes Cardiovascular: Hypertension, High cholesterol Respiratory: None Neuro: CVA, Tremors Endocrine/Autoimmune: None GI: GERD, Other : None HEENT: None Psych: Depression, Anxiety, Post traumatic stress disorder Musculoskeletal: Osteoarthritis, Other Derm: Other - Past Surgical History Past Surgical History: Yes General: Bowel surgery Ortho: Other - Present Medications Home Medications: Ambulatory Orders Medication Instructions Recorded Confirmed Gabapentin [Neurontin] 600 mg PO TID 06/16/13 02/06/21 Sertraline [Zoloft] 100 mg PO DAILY 06/16/13 02/06/21 Atenolol 50 mg PO DAILY PM 12/19/15 02/06/21 Cyclobenzaprine [Flexeril] 10 mg PO TID PRN 12/19/15 02/06/[address] [Voltaren] 75 mg PO BIDWM 12/19/15 02/06/21 Lisinopril 20 mg PO DAILY 12/19/15 02/06/21 Omeprazole [PriLOSEC] 40 mg PO BID 12/19/15 02/06/21 Prazosin HCl [Minipress] 4 mg PO DAILY PM 12/19/15 02/06/21 buPROPion [Wellbutrin Sr] 150 mg PO BID 12/19/15 02/06/21 Atorvastatin Calcium 40 mg PO DAILY 01/20/17 02/06/21 hydrOXYzine pamoate [Hydroxyzine 25 mg PO TID 01/20/17 02/06/21 Pamoate] Metoclopramide [Reglan] 10 mg PO Q6H PRN #20 tablet 09/05/18 02/06/21 Ondansetron Odt [Zofran] 4 mg TL Q6H PRN #10 tablet 02/10/20 02/06/21 Ondansetron Odt [Zofran] 4 mg TL Q6H PRN #10 tablet 02/06/21 Propranolol ER [Inderal LA] 60 mg PO DAILY 02/06/21 02/06/21 - Allergies Allergies/Adverse Reactions: Allergies Allergy/AdvReac Type Severity Reaction Status Date / Time bee venom protein (honey bee) Allergy Unknown Verified 02/06/21 11:55 - Social History Does the pt smoke?: No Smoking Status: Never smoker Does the pt drink ETOH?: No Does the pt have substance abuse?: Yes - Immunizations Immunizations are current?: Yes Immunizations: TDAP >10years/unknown - POLST Patient has POLST: No PD ED PE NORMAL - Vitals Vital signs reviewed: Yes - General General: Alert and oriented X 3, Other (He is quite diaphoretic and very hard of hearing) - HEENT HEENT: PERRL, EOMI - Neck Neck: Supple, no meningeal sign, No bony TTP - Cardiac Cardiac: RRR, No murmur - Respiratory Respiratory: No respiratory distress, Clear bilaterally - Abdomen Abdomen: Other (Absent bowel tones with occasional retching, nontender, Healed ex lap scar) - Back Back: No CVA TTP, No spinal TTP - Derm Derm: Normal color, Warm and dry - Extremities Extremities: No edema, No calf tenderness / cord - Neuro Neuro: Alert and oriented X 3, Normal speech Results - Vitals Vitals: Vital Signs - 24 hr 11/02/21 11/02/21 16:55 19:44 Temperature 36.6 C Heart Rate 71 95 Respiratory 22 25 H Rate Blood Pressure 173/90 H 176/105 H O2 Saturation 99 99 Oxygen O2 Source Room air - EKG (time done) 1653 Rate: Rate (enter#) (88) Rhythm: NSR (w pac) Intervals: Prolonged QT, Other (IVCD) Ischemia: Non specific changes - Labs Labs: Laboratory Tests 11/02/21 11/02/21 11/02/21 17:30 17:30 17:30 WBC 14.9 H RBC 4.95 Hgb 15.6 Hct 45.2 MCV 91.3 MCH 31.5 H MCHC 34.5 RDW 13.8 Plt Count 281 MPV 9.8 Neut # (Auto) 12.9 H Lymph # (Auto) 1.1 L [place] # (Auto) 0.7 Eos # (Auto) 0.0 Baso # (Auto) 0.0 Absolute Nucleated RBC 0.00 Nucleated RBC % 0.0 Sodium 141 Potassium 3.7 Chloride 104 Carbon Dioxide 15 L Anion Gap 22.0 H BUN 18 Creatinine 0.9 Estimated GFR (MDRD) 83 L Glucose 177 H Calcium 10.2 Total Bilirubin 1.2 H AST 29 ALT 22 Alkaline Phosphatase 56 Troponin I High Sens 5.3 Total Protein 7.8 Albumin 4.6 Globulin 3.2 Albumin/Globulin Ratio 1.4 Lipase 35 PD MEDICAL DECISION MAKING - ED course ED course: 71-year-old gentleman presents with vomiting. Review of the chart shows that this happens maybe once or twice a year without pertinent positive findings. He looks quite ill when he got here but after the administration of IV fluids and antiemetics improved completely. 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 I have been worried based on his initial examination that he had a small bowel obstruction, but this is not present on CT imaging. He was able to pass an oral challenge here and requested discharge. I tried to call his of both numbers on the chart, there was no answer at either. Departure - Departure Disposition: Home, Self Care Clinical Impression: Vomiting Qualifiers: Vomiting type: unspecified Nausea presence: with nausea Qualified Code(s): R11.2 - Nausea with vomiting, unspecified Condition: Good Record reviewed to determine appropriate education?: Yes Instructions: ED Nausea Vomiting Comments: Return if worsening or if symptoms recur. Follow-up with your doctor regardless next week, calling Friday for an appointment.
[2021-11-02] MEDS: METOCLOPRAMIDE 10 MG/2 ML VIAL IVP STA (17:15)
[2021-11-02] MEDS: SODIUM CHLORIDE 0.9% 1,000 ML IV STA (17:15)
[2021-11-02] MEDS ORDERED: IOVERSOL 320 100 ML VIAL IVP ONE (17:16)
[2021-11-02 17:38] LABS: BASOPHILS % (AUTO) 0.1 %; EOSINOPHILS % (AUTO) 0.1 %; HCT - HEMATOCRIT 45.2 % (42.0-52.0); HGB - HEMOGLOBIN 15.6 g/dL (14.0-18.0); LYMPHOCYTES # (AUTO) 1.1 10^3/uL (1.5-3.5); LYMPHOCYTES % (AUTO) 7.5 %; MEAN CORPUSCULAR HEMOGLOBIN 31.5 pg (27.0-31.0); MEAN CORPUSCULAR HGB CONC 34.5 g/dL (32.0-36.0); MEAN CORPUSCULAR VOLUME 91.3 fL (80.0-94.0); MEAN PLATELET VOLUME 9.8 fL (7.4-11.4); MONOCYTES # (AUTO) 0.7 10^3/uL (0.0-1.0); MONOCYTES % (AUTO) 4.8 %; NEUTROPHILS # (AUTO) 12.9 10^3/uL (1.5-6.6); NEUTROPHILS % (AUTO) 86.8 %; PLT - PLATELET COUNT 281 10^3/uL (130-450); RED BLOOD COUNT 4.95 10^6/uL (4.70-6.10); RED CELL DISTRIBUTION WIDTH 13.8 % (12.0-15.0); WHITE BLOOD COUNT 14.9 x10^3/uL (4.8-10.8)
--- NOTE | 2021-11-02 17:52 | XRAY Report ---
PROCEDURE: Chest 1 View X-Ray INDICATIONS: vomiting TECHNIQUE: One view of the chest was acquired. COMPARISON: 10/04/2019 FINDINGS: Surgical changes and devices: None. Lungs and pleura: No pleural effusions or pneumothorax. Lungs are clear. Mediastinum: Mediastinal contours appear normal. Heart size is normal. Bones and chest wall: No suspicious bony lesions. Overlying soft tissues appear unremarkable. IMPRESSION: No acute cardiopulmonary pathology. Reviewed by: Ozzie Mackey MD on 11/02/2021 5:51 PM PDT Approved by: Ozzie Mackey MD on 11/02/2021 5:51 PM PDT Station ID: [id number]
[2021-11-02 18:02] LABS: CALCIUM 10.2 mg/dL (8.5-10.3); POTASSIUM 3.7 mmol/L (3.5-5.0)
[2021-11-02 18:35] LABS: ALBUMIN 4.6 g/dL (3.2-5.5); ALBUMIN/GLOBULIN RATIO 1.4 (1.0-2.2); BILIRUBIN,TOTAL 1.2 mg/dL (0.2-1.0); CREATININE 0.9 mg/dL (0.6-1.2); TOTAL PROTEIN 7.8 g/dL (6.7-8.2)
[2021-11-02] MEDS: IOVERSOL 320 100 ML VIAL IVP ONE (19:16)
--- NOTE | 2021-11-02 19:32 | CT Report ---
PROCEDURE: Abdomen/Pelvis W INDICATIONS: IV only, vomiting CONTRAST: IV CONTRAST: Optiray 320 ml: 100 PO CONTRAST: *NO PO CONTRAST TECHNIQUE: After the administration of IV contrast, 5 mm thick sections acquired from the diaphragms to the symp hysis. 5 mm thick coronal and sagittal reformats were acquired. For radiation dose reduction, the f ollowing was used: automated exposure control, adjustment of mA and/or kV according to patient size. COMPARISON: 02/06/2021. FINDINGS: Image quality: Excellent. ABDOMEN: Lung bases: Dependent atelectasis in posterior aspect of right lung base is seen. Heart size is kevin l. Solid organs: Liver and spleen are normal in size and enhancement. Gallbladder distended and shows no gross abnormality. Biliary system is non dilated. Pancreas enhances normally. No adrenal nodule s. Kidneys demonstrate normal size and enhancement, without hydronephrosis. 2.6 x 2.6 cm right zulay l cyst is again seen unchanged from prior study. Peritoneum and bowel: Previously described small duodenal diverticulum is again seen and unchanged. T here is no bowel obstruction. Small hiatal hernia is again seen. No gastric or small bowel wall thick ening. There is suggestion of mild diffuse colonic wall thickening with mild pericolonic fat strandin g concerning for low-grade colitis. No abscess collection. No free fluid of free air. Nodes and vessels: No retroperitoneal or mesenteric adenopathy by size criteria. Aorta and inferior vena cava are normal in size. Miscellaneous: No ventral hernias. PELVIS: Genitourinary: Bladder wall thickness is normal. Miscellaneous: No inguinal hernias or adenopathy. Bones: No suspicious bony lesions. No vertebral body compression fractures. Degenerative disc dise ase throughout lumbar spine is seen. IMPRESSION: 1. Mild colonic wall thickening concerning for low-grade infectious or inflammatory colitis. No bowel obstruction. No abscess collection. No free fluid of free air. 2. Small duodenal diverticulum unchanged from prior study. Small hiatal hernia. Reviewed by: Ozzie Mackey MD on 11/02/2021 7:31 PM PDT Approved by: Ozzie Mackey MD on 11/02/2021 7:31 PM PDT Station ID: [id number]
[2021-11-02 19:44] VITALS: BP 176/105
[2021-11-02] MEDS: ONDANSETRON ODT 4 MG Prepack 2 TL STA (20:02)
== END 2021-11-02 20:10 | disposition home or self-care (01) ==
LOC: EDUNIT# → ED 16:47
DX: R11.2 Nausea with vomiting, unspecified (principal); I10 Essential (primary) hypertension
CPT/HCPCS: 36415; 71045; 74177; 80053; 83690; 84484; 85025; 93005; 96374; 99282; 99284; J2765; Q9967

== ENCOUNTER 2021-11-04 13:14 | Inpatient (IN) | payer MEDICARE, OTHER ==
[2021-11-04] MEDS ORDERED: SODIUM CHLORIDE 0.9% 1,000 ML IV STA ×2 (13:33→14:32)
[2021-11-04] MEDS ORDERED: ONDANSETRON 4 MG/2 ML VIAL IVP STA (13:35)
--- NOTE | 2021-11-04 13:37 | ED Physician Documentation ---
PD HPI ALTERED MENTAL STATUS - Stated complaint Stated Complaint: AMS - Chief complaint Chief Complaint: Abd Pain - History obtained from History obtained from: Patient, EMS - History of Present Illness Timing - onset: How many days ago (5) Timing - duration: Days (5) Timing - details: Gradual onset, Still present, Waxing and waning Quality / character: Less responsive, Confused Associated symptoms: NVD, General weakness. No: Fever, Headache, Stiff neck, Dyspnea, Cough, Focal weakness, Seizure activity Contributing factors: Diabetic, Recent illness. No: Anticoagulated Basline status: Alert and oriented X 3, Ambulatory, Independent Similar symptoms before: Diagnosis (dehydration) Recently seen: Emergency Dept - Additional information Additional information: 71-year-old male with a history of hypertension PTSD uses cannabis daily and he has had issues with cyclical vomiting periodically. He has developed an issue recently and he was seen in the emergency department here treated 2 days ago and has continued to have problems with vomiting. He returns today with vomiting and altered mental status. He has not taken his medications in 3 days. Review of Systems Unable to obtain: Other (the patient is a poor historian and minimizes his symptoms) Constitutional: denies: Fever Eyes: denies: Decreased vision Ears: denies: Ear pain Nose: denies: Congestion Throat: denies: Oral lesions / sores, Sore throat Cardiac: denies: Chest pain / pressure, Palpitations Respiratory: denies: Dyspnea, Cough GI: reports: Abdominal Pain, Nausea, Vomiting. denies: Constipation, Diarrhea : denies: Dysuria, Frequency, Hesitancy Skin: denies: Rash Musculoskeletal: reports: Back pain (chronically). denies: Neck pain, Extremity pain, Joint pain Neurologic: denies: Generalized weakness, Focal weakness, Numbness PD PAST MEDICAL HISTORY - Past Medical History Cardiovascular: Hypertension, High cholesterol Respiratory: None Neuro: CVA, Tremors Endocrine/Autoimmune: None GI: GERD, Other : None HEENT: None Psych: Depression, Anxiety, Post traumatic stress disorder Musculoskeletal: Osteoarthritis, Other Derm: Other - Past Surgical History Past Surgical History: Yes General: Bowel surgery Ortho: Other - Present Medications Home Medications: Ambulatory Orders Medication Instructions Recorded Confirmed Gabapentin [Neurontin] 600 mg PO TID 06/16/13 11/04/21 Sertraline [Zoloft] 100 mg PO DAILY 06/16/13 11/04/21 Atenolol 50 mg PO DAILY PM 12/19/15 11/04/21 Cyclobenzaprine [Flexeril] 10 mg PO TID PRN 12/19/15 11/04/[address] [Voltaren] 75 mg PO BIDWM 12/19/15 11/04/21 Lisinopril 20 mg PO DAILY 12/19/15 11/04/21 Omeprazole [PriLOSEC] 40 mg PO BID 12/19/15 11/04/21 Prazosin HCl [Minipress] 4 mg PO DAILY PM 12/19/15 11/04/21 buPROPion [Wellbutrin Sr] 150 mg PO BID 12/19/15 11/04/21 Atorvastatin Calcium 40 mg PO DAILY 01/20/17 11/04/21 hydrOXYzine pamoate [Hydroxyzine 25 mg PO TID 01/20/17 11/04/21 Pamoate] Metoclopramide [Reglan] 10 mg PO Q6H PRN #20 tablet 09/05/18 11/04/21 Ondansetron Odt [Zofran] 4 mg TL Q6H PRN #10 tablet 02/06/21 11/04/21 Propranolol ER [Inderal LA] 60 mg PO DAILY 02/06/21 11/04/21 Aspirin EC [Ecotrin] 81 mg PO DAILY 11/04/21 11/04/21 - Allergies Allergies/Adverse Reactions: Allergies Allergy/AdvReac Type Severity Reaction Status Date / Time bee venom protein (honey bee) Allergy Unknown Verified 11/04/21 13:32 - Social History Does the pt smoke?: No Smoking Status: Never smoker Does the pt drink ETOH?: No Does the pt have substance abuse?: Yes - Immunizations Immunizations are current?: Yes Immunizations: TDAP >10years/unknown - POLST Patient has POLST: No PD ED PE NORMAL - Vitals Vital signs reviewed: Yes (hypertensive) - General General: Other (alert but with delay in execution of motor commands and speech latency of 3 seconds. Periodic grunt followed by a deep breath and pause. ) - HEENT HEENT: Atraumatic, PERRL, EOMI, Other (lips and mouth are parched. 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 motor commands are delayed.) Eye Opening: Spontaneous Motor: Obeys Commands Verbal: Confused GCS Score: 14 - Psych Psych: Other (mood is withdrawn affect is blunted) Results - Vitals Vitals: Vital Signs - 24 hr 11/04/21 11/04/21 11/04/21 13:29 13:45 15:23 Temperature 36.8 C Heart Rate 92 71 89 Respiratory 20 15 15 Rate Blood Pressure 162/94 H 166/82 H 168/95 H O2 Saturation 98 98 99 Oxygen O2 Source Room air - Labs Labs: Laboratory Tests 11/04/21 11/04/21 11/04/21 14:02 14:02 14:02 WBC 14.1 H RBC 4.38 L Hgb 13.8 L Hct 40.0 L MCV 91.3 MCH 31.5 H MCHC 34.5 RDW 14.0 Plt Count 235 MPV 9.8 Neut # (Auto) 11.7 H Lymph # (Auto) 0.9 L [place] # (Auto) 1.4 H Eos # (Auto) 0.0 Baso # (Auto) 0.0 Absolute Nucleated RBC 0.00 Nucleated RBC % 0.0 Sodium 145 Potassium 2.3 L* Chloride 108 Carbon Dioxide 17 L Anion Gap 20.0 H BUN 29 H Creatinine 0.8 Estimated GFR (MDRD) 96 Glucose 136 H Lactic Acid Calcium 9.3 Magnesium 2.0 Total Bilirubin 2.1 H AST 53 H ALT 23 Alkaline Phosphatase 45 Total Protein 7.2 Albumin 4.4 Globulin 2.8 Albumin/Globulin Ratio 1.6 Lipase 29 11/04/21 14:12 WBC RBC Hgb Hct MCV MCH MCHC RDW Plt Count MPV Neut # (Auto) Lymph # (Auto) [place] # (Auto) Eos # (Auto) Baso # (Auto) Absolute Nucleated RBC Nucleated RBC % Sodium Potassium Chloride Carbon Dioxide Anion Gap BUN Creatinine Estimated GFR (MDRD) Glucose Lactic Acid 1.4 Calcium Magnesium Total Bilirubin AST ALT Alkaline Phosphatase Total Protein Albumin Globulin Albumin/Globulin Ratio Lipase - Rads (name of study) CT head Radiology: Prelim report reviewed (Impression: No CT evidence of acute intracranial abnormalities. Age-related atrophy and white matter chronic small vessel ischemic change.), EMP read indepedently, See rad report Procedures - IVC sono (time) 1330 Bedside IVC sono: IVC measures (cm) (1.0), IVC collapsed c insp (cm) (complete), Dehydration (est 1-2 liter deficit) PD MEDICAL DECISION MAKING - ED course Complexity details: reviewed old records, reviewed results, re-evaluated patient, considered differential, d/w patient ED course: 71-year-old male returns to the emergency department with diminished alertness and what appears to be desiccation encephalopathy. He is slow to respond and appears confused. His inferior vena cava is interrogated with a bedside ultrasound and is found to be 1 to 2 L deficit and intravenous saline is begun. He has a history of cyclical vomiting and is suspected of having cannabis hyperemesis. He reports he smokes daily and he will occasionally have bouts where he has nausea and vomiting for several days. He has not responded to treatment with Zofran. He has had a prior episode of torsades associated with a visit for back pain after he had stopped all of his medications for one year. He is administered IV haldol and benadrly. He responds to treatment with IV saline but his Potassium is low critically at 2.3. Potassium is given IV and PO. He vomits the oral potassium. Admission for failure of outpatient management of cyclical vomiting with critically low K+ and hx of torsades is sought. Departure - Departure Disposition: ED Place in Observation Clinical Impression: Hypokalemia, Dehydration Vomiting Qualifiers: Vomiting type: cyclical vomiting syndrome unrelated to migraine Qualified Code(s): R11.15 - Cyclical vomiting syndrome unrelated to migraine
[2021-11-04 14:19] LABS: BASOPHILS % (AUTO) 0.1 %; HGB - HEMOGLOBIN 13.8 g/dL (14.0-18.0); LYMPHOCYTES # (AUTO) 0.9 10^3/uL (1.5-3.5); LYMPHOCYTES % (AUTO) 6.5 %; MEAN CORPUSCULAR HEMOGLOBIN 31.5 pg (27.0-31.0); MEAN CORPUSCULAR HGB CONC 34.5 g/dL (32.0-36.0); MEAN CORPUSCULAR VOLUME 91.3 fL (80.0-94.0); MEAN PLATELET VOLUME 9.8 fL (7.4-11.4); MONOCYTES # (AUTO) 1.4 10^3/uL (0.0-1.0); MONOCYTES % (AUTO) 9.8 %; NEUTROPHILS # (AUTO) 11.7 10^3/uL (1.5-6.6); NEUTROPHILS % (AUTO) 83.1 %; PLT - PLATELET COUNT 235 10^3/uL (130-450); RED BLOOD COUNT 4.38 10^6/uL (4.70-6.10); WHITE BLOOD COUNT 14.1 x10^3/uL (4.8-10.8)
[2021-11-04] MEDS ORDERED: PANTOPRAZOLE 40 MG VIAL IVP STA (14:34)
[2021-11-04 14:42] LABS: ALBUMIN 4.4 g/dL (3.2-5.5); ALBUMIN/GLOBULIN RATIO 1.6 (1.0-2.2); BILIRUBIN,TOTAL 2.1 mg/dL (0.2-1.0); CALCIUM 9.3 mg/dL (8.5-10.3); CREATININE 0.8 mg/dL (0.6-1.2); TOTAL PROTEIN 7.2 g/dL (6.7-8.2)
[2021-11-04 14:44] LABS: POTASSIUM 2.3 mmol/L (3.5-5.0)
[2021-11-04] MEDS ORDERED: GABAPENTIN 100 MG CAPSULE PO STA (14:44)
[2021-11-04] MEDS ORDERED: LORazepam 2 MG/ML VIAL IVP STA (14:45)
--- NOTE | 2021-11-04 15:04 | CT Report ---
PROCEDURE: HEAD WO INDICATIONS: aloc TECHNIQUE: Noncontrast 4.5 mm thick angled axial sections acquired from the foramen magnum to the vertex. For r adiation dose reduction, the following was used: automated exposure control, adjustment of mA and/or kV according to patient size. COMPARISON: 09/23/2018 FINDINGS: Image quality: Excellent. CSF spaces: Basal cisterns are patent. No extra-axial fluid collections. The ventricles are symmet jayce in size and shape. Brain: No intracranial bleeds or masses. There is cerebral volume loss for age, with resultant vent ricular and sulcal prominence. There are periventricular and deep white matter chronic small vessel ischemic changes. There is intracranial internal carotid artery atherosclerosis. Skull and face: Calvarium and visualized facial bones appear intact, without suspicious lesions. Sinuses: Visualized sinuses and mastoids are clear. IMPRESSION: No CT evidence of acute intracranial abnormalities. Age-related atrophy and mild white matter chronic small vessel ischemic change. Reviewed by: zOzie Mackey MD on 11/04/2021 3:03 PM PDT Approved by: Ozzie Mackey MD on 11/04/2021 3:03 PM PDT Station ID: [id number]
[2021-11-04] MEDS ORDERED: diphenhydrAMINE INJ 50 MG/ML VIAL IVP STA (15:21)
[2021-11-04] MEDS ORDERED: HALOPERIDOL 5 MG/ML VIAL IVP ONE (15:21)
[2021-11-04] MEDS ORDERED: PROPRANOLOL 10 MG TABLET PO STA (15:31)
[2021-11-04] MEDS ORDERED: POTASSIUM CHLORIDE 20 MEQ TABLET PO STA (15:36)
[2021-11-04] MEDS ORDERED: POTASSIUM CHLOR 10 MEQ/100 ML 10 MEQ/100 ML BAG IV ONE (15:36)
[2021-11-04] MEDS ORDERED: MAGNESIUM SULFATE 2 GRAM 2 GM/50 ML BAG IV ONE (15:43)
[2021-11-04] MEDS ORDERED: SODIUM CHLORIDE FLUSH 0.9% 10 ML SYRINGE IVP PRN (16:43)
[2021-11-04] MEDS ORDERED: ACETAMINOPHEN 325 MG TABLET PO PRN (16:43)
[2021-11-04 17:07] LABS: GLUCOSE, URINE (UA) NEGATIVE (NEGATIVE); KETONES,URINE (UA) >=80 mg/dL (NEGATIVE); LEUKOCYTE ESTERASE, URINE NEGATIVE (NEGATIVE); NITRITE,URINE NEGATIVE (NEGATIVE); OCCULT BLOOD,URINE LARGE (NEGATIVE); PROTEIN,URINE 100 mg/dL (NEGATIVE); UROBILINOGEN,URINE 0.2 (NORMAL) E.U./dL (NORMAL)
[2021-11-04 17:10] LABS: BILIRUBIN,URINE NEGATIVE (NEGATIVE); CLARITY,URINE HAZY (CLEAR); ICTOTEST,URINE NEGATIVE
[2021-11-04 17:20] LABS: BACTERIA,URINE Rare /HPF (None Seen); SQUAMOUS EPITHELIAL CELL,UR FEW Squamous (<= Few); WBC,URINE 0-3 /HPF (0-3)
[2021-11-04 17:28] LABS: B. PARAPERTUSSIS- RESP PCR PAN NOT DETECTED; B. PERTUSSIS- RESP PCR PANEL NOT DETECTED; C. PNEUMONIAE- RESP PCR PANEL NOT DETECTED; CORONAVIRUS 229E-RESP PCR NOT DETECTED; CORONAVIRUS HKU1-RESP PCR NOT DETECTED; CORONAVIRUS NL63-RESP PCR NOT DETECTED; CORONAVIRUS OC43-RESP PCR NOT DETECTED; HUMAN METAPNEUMOVIRUS NOT DETECTED; INFLUENZA A- RESP PCR PANEL NOT DETECTED; INFLUENZA B - RESP PCR PANEL NOT DETECTED; M. PNEUMONIAE- RESP PCR PANEL NOT DETECTED; PARAINFLUENZA VIRUS 1 NOT DETECTED; PARAINFLUENZA VIRUS 2 NOT DETECTED; PARAINFLUENZA VIRUS 3 NOT DETECTED; PARAINFLUENZA VIRUS 4 NOT DETECTED; RHINOVIRUS/ENTEROVIRUS NOT DETECTED; RSV- RESP PCR PANEL NOT DETECTED; SARS-CoV-2 -RESP PCR PANEL NOT DETECTED
[2021-11-04] MEDS: D5NS W/20 MEQ KCL 1,000 ML IV SCH (17:48)
[2021-11-04] MEDS: POTASSIUM CHLOR 10 MEQ/100 ML 10 MEQ/100 ML BAG IV SCH ×4 (17:49→21:17)
[2021-11-04] MEDS: SODIUM CHLORIDE FLUSH 0.9% 10 ML SYRINGE IVP SCH (17:51)
--- NOTE | 2021-11-04 20:52 | HISTORY & PHYSICAL EXAMINATION ---
Chief Complaint - Chief Complaint Chief Complaint: intractable nausea and vomiting, altered mental status <Viet James - Last Filed: 11/04/21 23:13> History of Present Illness - Admitted From Admitted From:: [facility] ED - History Obtained From Records Reviewed: yes History obtained from: ED physician's note and patient's spouse Exam Limitations: altered mental status <Viet James - Last Filed: 11/04/21 23:13> - History of Present Illness HPI Comment/Other: Patient is a 71-year-old male with medical history significant for hypertension, hyperlipidemia, PTSD, anxiety, depression, GERD, cyclical vomiting, marijuana use who presented to the ED with intractable nausea and vomiting which has been going on for 2 days. He was seen in the emergency department 2 days ago for the same problem. He is also experiencing altered mental status which his reports has been going on for at least 24 hours. Though awake, alert and with no obvious neurologic deficits he mainly just stares blankly when questioned. He does not appear oriented to time place or reason. In the ED he was noted to have a potassium of 2.3. He was presented for admission for further work-up and treatment. History/review of system is very limited because the patient mainly just stares blankly. (ShereenyongloriaViet) History - Past Medical History Cardiovascular: reports: Hypertension, High cholesterol Respiratory: reports: None Neuro: reports: CVA, Tremors Endocrine/Autoimmune: reports: None GI: reports: GERD, Other : reports: None HEENT: reports: None Psych: reports: Depression, Anxiety, Post traumatic stress disorder Musculoskeletal: reports: Osteoarthritis, Other Derm: reports: Other MRSA Hx?: No - Past Surgical History General: reports: Bowel surgery (Partial colectomy due to incarcerated bowel.) Ortho: reports: Other - Family & Social History Family History Comment/Other: Family history is limited due to altered mental status and patient being unable to provide a reliable history. Living arrangement: At home Living Situation: With spouse/s.o. Social History Notes: He lives at home with his . He used to drink heavily but stopped doing so about a year ago. He appears to have replaced alcohol consumption with marijuana use which he does on a daily basis. - POLST Patient has POLST: No POLST Status: Full Code <Viet James - Last Filed: 11/04/21 23:13> Meds/Allgy <FabyjesseeViet saavedra - Last Filed: 11/04/21 23:13> <Leti Dumont D - Last Filed: 11/05/21 07:48> - Home Medications Home Medications: Ambulatory Orders Medication Instructions Recorded Confirmed Gabapentin [Neurontin] 600 mg PO TID 06/16/13 11/04/21 Sertraline [Zoloft] 100 mg PO DAILY 06/16/13 11/04/21 Atenolol 50 mg PO DAILY PM 12/19/15 11/04/21 Cyclobenzaprine [Flexeril] 10 mg PO TID PRN 12/19/15 11/04/[address] [Voltaren] 75 mg PO BIDWM 12/19/15 11/04/21 Lisinopril 20 mg PO DAILY 12/19/15 11/04/21 Omeprazole [PriLOSEC] 40 mg PO BID 12/19/15 11/04/21 Prazosin HCl [Minipress] 4 mg PO DAILY PM 12/19/15 11/04/21 buPROPion [Wellbutrin Sr] 150 mg PO BID 12/19/15 11/04/21 Atorvastatin Calcium 40 mg PO DAILY 01/20/17 11/04/21 hydrOXYzine pamoate [Hydroxyzine 25 mg PO TID 01/20/17 11/04/21 Pamoate] Metoclopramide [Reglan] 10 mg PO Q6H PRN #20 tablet 09/05/18 11/04/21 Ondansetron Odt [Zofran] 4 mg TL Q6H PRN #10 tablet 02/06/21 11/04/21 Propranolol ER [Inderal LA] 60 mg PO DAILY 02/06/21 11/04/21 Aspirin EC [Ecotrin] 81 mg PO DAILY 11/04/21 11/04/21 - Allergies Allergies/Adverse Reactions: Allergies Allergy/AdvReac Type Severity Reaction Status Date / Time bee venom protein (honey bee) Allergy Unknown Verified 11/04/21 13:32 Review of Systems <ShereenyongloriaJanetnakul - Last Filed: 11/04/21 23:13> - Other Findings Other Findings: A 12 point review of system is limited due to altered mental status. ([facility] otu,ba F) <[facility] - Last Filed: 11/04/21 23:13> Prior Level of Functionality: Patient lives with his . He is normally independent of activities of daily living. ([facility] F) Exam - Physical Exam General Appearance: positive: No acute distress, Alert, Other (Not oriented to place, time or reason.) Eyes Bilateral: positive: PERRL, EOMI ENT: positive: No signs of dehydration Neck: positive: No JVD, Trachea midline Respiratory: positive: Chest non-tender, No respiratory distress, Breath sounds nml. negative: Wheezes, Rales, Rhonchi Cardiovascular: positive: Regular rate & rhythm, No murmur Abdomen: positive: Non-tender, No organomegaly, Nml bowel sounds, No distention. negative: Guarding, Rebound Back: positive: Nml inspection Skin: positive: Color nml, No rash, Warm, Dry, Cyanosis Extremities: positive: Non-tender, Full ROM, Nml appearance, No pedal edema Neurologic/Psychiatric: positive: CN's nml (2-12), Motor nml, Mood/affect nml, Disoriented to place, Disoriented to time <[facility] - Last Filed: 11/04/21 23:13> - Vital Signs Vital Signs: Vital Signs x48h Temp Pulse Resp BP Pulse Ox 11/05/21 04:32 36.5 C 66 18 149/74 H 100 11/04/21 23:55 37.2 C 63 18 143/77 H 98 Conclusion/Plan - Problem List (1) Altered mental status Conclusion/Plan: Etiology undetermined. Patient is awake and alert but mainly stares when asked questions. No other/focal neurologic deficits noted. CT brain without contrast was negative for any acute intracranial findings. MRI brain without contrast ordered for the morning. We will hold patient's Flexeril, Wellbutrin, hydroxyzine, gabapentin and sertraline for now. (2) Hypokalemia Conclusion/Plan: Likely due to intractable nausea vomiting related to cannabis use. Potassium was 2.3 with magnesium of 2.0. We will continue replacing potassium. Antiemetics ordered. (3) Intractable nausea and vomiting Conclusion/Plan: Likely due to cannabis use. Patient advised to stop using marijuana. Patient given Haldol, Phenergan, Zofran, Ativan and Compazine in the ED. We will continue treatment with Zofran and/or Compazine as needed. (4) Leukocytosis Conclusion/Plan: WBC was 14.1. Reactive versus infectious. Will monitor and recheck in the morning. If patient spikes a temperature, will obtain blood cultures and consider placing patient on empiric antibiotics. (5) Hyperlipidemia Conclusion/Plan: On atorvastatin 40 mg p.o. daily. (6) Hypertension Conclusion/Plan: Will resume patient's lisinopril and atenolol when he is able to tolerate oral intake and once verified by pharmacy. We will order hydralazine 10 mg IV every 4 hours as needed for side blood pressure greater than 160 (7) Depression with anxiety Conclusion/Plan: Patient is normally on Wellbutrin, sertraline and propranolol. We will hold them for now while assessing/working up for altered mental status. - Lab Results Fish Bones: 11/04/21 14:02 11/04/21 14:02 <Viet James F - Last Filed: 11/04/21 23:13> - Lab Results Fish Bones: 11/04/21 14:02 11/05/21 05:09 - EKG Results EKG Interpreted Independently: Yes EKG Comparison: Old EKG unavailable <Leti Dumont - Last Filed: 11/05/21 07:48> - EKG Results EKG Findings: Normal sinus rhythm, rate 77, prolonged QTC (5 3 1 ms). These findings are similar to EKG from 11/02/2021 and 02/06/2021. (Interpreted by Dr Leti Dumont) (Leti Dumont) Core Measures - Anticipated LOS I expect patient to be DC'd or transferred within 96 hours.: Yes - DVT/VTE - Prophylaxis VTE/DVT Device ordered at admit?: Yes VTE/DVT Prophylaxis med ordered at admit?: Yes <Viet James - Last Filed: 11/04/21 23:13>
[2021-11-04] MEDS ORDERED: hydrALAZINE INJ 20 MG/ML VIAL IVP PRN (23:04)
[2021-11-05] MEDS: SODIUM CHLORIDE FLUSH 0.9% 10 ML SYRINGE IVP SCH ×3 (01:38→16:08)
[2021-11-05] MEDS: D5NS W/20 MEQ KCL 1,000 ML IV SCH ×2 (02:50→12:34)
[2021-11-05 05:56] LABS: ALBUMIN 3.5 g/dL (3.2-5.5); ALBUMIN/GLOBULIN RATIO 1.4 (1.0-2.2); BILIRUBIN,TOTAL 1.4 mg/dL (0.2-1.0); CALCIUM 8.5 mg/dL (8.5-10.3); CREATININE 0.6 mg/dL (0.6-1.2); PHOSPHORUS 2.5 mg/dL (2.5-4.6); POTASSIUM 3.1 mmol/L (3.5-5.0)
[2021-11-05] MEDS: PANTOPRAZOLE 40 MG VIAL IVP SCH (06:05)
[2021-11-05] MEDS: ONDANSETRON 4 MG/2 ML VIAL IVP PRN ×3 (07:42→22:08)
[2021-11-05] MEDS: POTASSIUM CHLOR 10 MEQ/100 ML 10 MEQ/100 ML BAG IV SCH ×4 (09:41→14:26)
[2021-11-05] MEDS ORDERED: HALOPERIDOL 5 MG/ML VIAL IVP ONE (11:33)
[2021-11-05] MEDS: PROCHLORPERAZINE 10 MG/2 ML VIAL IVP PRN ×2 (12:33→18:27)
--- NOTE | 2021-11-05 12:48 | PHARMACY PROGRESS NOTE ---
- Best Possible Medication History Admit Date and Time: 11/04/21 9924 Processed by: Nursing Medication History completed: Yes Secondary Source(s): Insurance records As the person ultimately responsible for medication therapy, providers are able to order a medication from an existing home medication list in [facility] via the "Reconcile Routine" prior to Confirmation of that medication by call center support consultant. Such practice is discouraged except when the physician, in their clinical judgment, deems that a medical need exists for a medication without regard to previous use.
--- NOTE | 2021-11-05 14:04 | MRI Report ---
PROCEDURE: Brain W/O INDICATIONS: Altered mental status TECHNIQUE: Noncontrast axial T1 spin echo, axial T2 fast spin echo, sagittal and axial FLAIR, coronal T2 fast sp in echo, axial gradient echo, axial diffusion and ADC through the brain. COMPARISON: None. FINDINGS: Image quality: Excellent. CSF Spaces: Basal cisterns are patent. No extra-axial fluid collections. Ventricles are normal in size and shape. Brain: Global cerebral volume loss and chronic intravascular ischemic change, but mildly age-advance d. No intracranial masses or hemorrhage. Mora/white matter interface is normal. Brainstem appears n ormal. Diffusion-weighted images demonstrate no acute ischemic insult. No chronic ischemic insults. Normal intravascular flow voids are present. Skull and face: Calvarium has normal marrow signal. Orbits appear normal. Sinuses: Sinuses and mastoids are clear. IMPRESSION: No acute intracranial abnormality. Global cerebral volume loss and chronic vascular ischemic change, both mild age-advanced. Reviewed by: Magdi Busby MD on 11/05/2021 2:03 PM PDT Approved by: Magdi Busby MD on 11/05/2021 2:03 PM PDT Station ID: [id number]
[2021-11-05 15:13] LABS: POTASSIUM 3.4 mmol/L (3.5-5.0)
--- NOTE | 2021-11-05 18:42 | PROVIDER PROGRESS NOTE ---
Assessment/Plan - Problem List (1) Stroke-like symptoms Assessment/Plan: At presentation yesterday, he would stare ahead and not answer the rolfer at all. Today his nurse said there were some verbalization. When I met him he would answer all my questions by starting a sentence saying "I" and not be able to complete it. Today, he is oriented only to self, he did not know the date, location, did not know his 's name, what his previous job was, did not remember anything about yesterday and why he is here. When asked what his 's name is he had the presence of mind to look up on his white board and look under the label "" and answered me "Roselia". Who lives with the said "with my daughter". He said he still drives. I next called the at home and spoke with the and daughter Darlene was on the phone. They reported that he has had this same type of difficulty with word finding for approximately 2 days. He would say individual words like "water" when asked what he wants when he was vomiting. More frequently, he started a sentence with "I want..." and could not finish it. CT head was done yesterday in the ED and found no stroke, hemorrhage or mass or midline shift A brain MRI was done today and it showed severe brain atrophy, no prior strokes and no changes of ischemic disease. The reported to me that he has been a heavy drinker for all his life, but stopped alcohol use entirely about 2 years ago and in its place smokes marijuana heavily for the past 2 years. This has made him more "mellow". 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 He will need a Neurology consult. His last known well was approx 72 hours ago. I will sign this out to the Apprentice Painter Hand. Will start high dose Thiamine for 3 days. Will order a Banana Bag for his iv fluids while he is nauseated. Because of his altered mental status, perhaps the could visitm (2) Polymorphic ventricular tachycardia Assessment/Plan: The patient has a history of Torsade de Pointes, for which she needed to be transferred from our ER to a larger facility, about a year ago. The details about his cardiac structure and electrical/conduction findings are not known. He has been placed on telemetry because of his severe hypokalemia, his prolonged QT interval and that history of Torsade, and therefore risk of developing a malignant arrhythmia. He did have a 10-beat run of polymorphic VT today at 1837, he was asymptomatic. We will order an Echocardiogram to evaluate for structural heart disease (we have no Echo service currently) or consider transfer. We will continue to monitor and replace his potassium, magnesium and other electrolytes closely. Will check troponins. His EKG had no ischemic changes. Will resume any appropriate cardiac medications, once his medication list is reconciled by pharmacy. (3) Hypokalemia Assessment/Plan: Be from his nausea and vomiting which is frequent and ongoing, the vomiting has subsided somewhat. Continue with IV potassium riders since he still has nausea. Follow his electrolytes closely (4) Intractable nausea and vomiting Assessment/Plan: This was felt to be from marijuana use however the told me by phone today that his nausea would improve when he used marijuana. We will continue to treat with antiemetics (concern of using Reglan and Compazine since they would prolong his QT interval even more), Haldol has been used in patients with marijuana-induced cyclic vomiting and works. Haldol has worked for him. We will give Haldol only with individual orders, not a standing as needed order however. He had no abdominal imaging done at admission yesterday. Will order CT of abdomen/pelvis. Continue with only a clear liquid diet for now. (5) Leukocytosis Improved but will obtain CT abd and follow WBC (6) Hyperlipidemia. We will hold his p.o. statin during nausea and vomiting (7) HTN His p.o. blood pressure meds are on hold during nausea vomiting, will use as needed IV meds for excessive blood pressure (8) Anxiety and Depression Will give IV forms of antipsychotics, resume his other meds when he can tolerate a diet (9) PTSD Will resume his usual medications when the med list is reconciled by pharmacy (10) Chronic pain The patient takes gabapentin. The is not sure where his chronic pain is but thinks it is his low back. - Current Meds Current Meds: Current Medications Generic Name Dose Route Start Last Admin Trade Name Freq PRN Reason Stop Dose Admin Potassium Chloride/Dextrose/Sod Cl 1,000 mls @ 100 mls/hr 11/04/21 17:00 11/05/21 14:26 D5ns W/20 Meq Kcl IV 100 mls/hr .Q10H NORMA Infusion Ondansetron HCl 4 mg 11/04/21 16:43 11/05/21 16:08 Ondansetron 4 Mg/2 Ml Vial IVP 4 mg Q6HR PRN Administration Nausea / Vomiting Pantoprazole Sodium 40 mg 11/05/21 07:00 11/05/21 06:05 Pantoprazole 40 Mg Vial IVP 40 mg QDAC NORMA Administration Prochlorperazine Edisylate 10 mg 11/04/21 16:43 11/05/21 18:27 Prochlorperazine 10 Mg/2 Ml Vial IVP 10 mg Q6HR PRN Administration Nausea / Vomiting Sodium Chloride 10 ml 11/04/21 17:00 11/05/21 16:08 Sodium Chloride Flush 0.9% 10 Ml Syringe IVP Not Given 0100,0900,1700 NORMA - Lab Result Fish Bone Diagrams: 11/04/21 14:02 11/05/21 14:58 - Additional Planning My Orders: My Active Orders 11/05/21 Breakfast Clear Liquid Diet [DIET] 11/05/21 15:50 Telemetry- [RC] Q4HR Subjective - Subjective Patient Reports: Other (He cannot tell me how he feels, says "I don't know") Nursing Reports: Other (RN reported no more vomiting and only 1 c/o nausea today) Objective Vital Signs: Vital Signs - 24 hr 11/04/21 11/04/21 11/05/21 20:34 23:55 04:32 Temperature 37.1 C 37.2 C 36.5 C Heart Rate [ 71 63 66 Brachial] Respiratory 15 18 18 Rate Blood Pressure [Left Brachial artery] Blood Pressure 137/87 H 143/77 H 149/74 H [Right Brachial artery] O2 Saturation 96 98 100 11/05/21 11/05/21 11/05/21 09:00 13:00 16:01 Temperature 37.0 C 37.2 C 36.6 C Heart Rate [ 49 L 47 L 57 L Brachial] Respiratory 18 17 15 Rate Blood Pressure 139/61 H 159/78 H [Left Brachial artery] Blood Pressure 140/81 H [Right Brachial artery] O2 Saturation 100 100 100 Oxygen O2 Source Room air I&O (Last 24 Hrs): Intake and Output Totals x24h 11/03/21 11/04/21 11/05/21 23:59 23:59 23:59 Intake Total 2650 4306.666 Output Total 150 Balance 2650 4156.666 General: Alert, Other (answers with one-word answers) HEENT: Mucous membr. moist/pink, Other (Large overgrown hustach and turk) Neuro: Alert, Disoriented, Other (oriented to self only) - Results Results: Laboratory Results WBC 14.1 x10^3/uL (4.8-10.8) H 11/04/21 14:02 RBC 4.38 10^6/uL (4.70-6.10) L 11/04/21 14:02 Hgb 13.8 g/dL (14.0-18.0) L 11/04/21 14:02 Hct 40.0 % (42.0-52.0) L 11/04/21 14:02 MCV 91.3 fL (80.0-94.0) 11/04/21 14:02 MCH 31.5 pg (27.0-31.0) H 11/04/21 14:02 MCHC 34.5 g/dL (32.0-36.0) 11/04/21 14:02 RDW 14.0 % (12.0-15.0) 11/04/21 14:02 Plt Count 235 10^3/uL (130-450) 11/04/21 14:02 MPV 9.8 fL (7.4-11.4) 11/04/21 14:02 Neut # (Auto) 11.7 10^3/uL (1.5-6.6) H 11/04/21 14:02 Lymph # (Auto) 0.9 10^3/uL (1.5-3.5) L 11/04/21 14:02 Parmer # (Auto) 1.4 10^3/uL (0.0-1.0) H 11/04/21 14:02 Eos # (Auto) 0.0 10^3/uL (0.0-0.7) 11/04/21 14:02 Baso # (Auto) 0.0 10^3/uL (0.0-0.1) 11/04/21 14:02 Absolute Nucleated RBC 0.00 x10^3/uL 11/04/21 14:02 Nucleated RBC % 0.0 /100WBC 11/04/21 14:02 Sodium 141 mmol/L (135-145) 11/05/21 05:09 Potassium 3.4 mmol/L (3.5-5.0) L 11/05/21 14:58 Chloride 110 mmol/L (101-111) 11/05/21 05:09 Carbon Dioxide 21 mmol/L (21-32) 11/05/21 05:09 Anion Gap 10.0 (6-13) 11/05/21 05:09 BUN 23 mg/dL (6-20) H 11/05/21 05:09 Creatinine 0.6 mg/dL (0.6-1.2) 11/05/21 05:09 Estimated GFR (MDRD) 133 (>89) 11/05/21 05:09 Glucose 138 mg/dL (70-100) H 11/05/21 05:09 Lactic Acid 1.4 mmol/L (0.5-2.2) 11/04/21 14:12 Calcium 8.5 mg/dL (8.5-10.3) 11/05/21 05:09 Phosphorus 2.5 mg/dL (2.5-4.6) 11/05/21 05:09 Magnesium 2.0 mg/dL (1.7-2.8) 11/05/21 14:58 Total Bilirubin 1.4 mg/dL (0.2-1.0) H 11/05/21 05:09 AST 54 IU/L (10-42) H 11/05/21 05:09 ALT 24 IU/L (10-60) 11/05/21 05:09 Alkaline Phosphatase 38 IU/L (42-121) L 11/05/21 05:09 Total Protein 6.0 g/dL (6.7-8.2) L 11/05/21 05:09 Albumin 3.5 g/dL (3.2-5.5) 11/05/21 05:09 Globulin 2.5 g/dL (2.1-4.2) 11/05/21 05:09 Albumin/Globulin Ratio 1.4 (1.0-2.2) 11/05/21 05:09 Lipase 29 U/L (22-51) 11/04/21 14:02 Urine Color DARK YELLOW 11/04/21 16:57 Urine Clarity HAZY (CLEAR) 11/04/21 16:57 Urine pH 6.0 PH (5.0-7.5) 11/04/21 16:57 Ur Specific [place] >=1.030 (1.002-1.030) H 11/04/21 16:57 Urine Protein 100 mg/dL (NEGATIVE) H 11/04/21 16:57 Urine Glucose (UA) NEGATIVE mg/dL (NEGATIVE) 11/04/21 16:57 Urine Ketones >=80 mg/dL (NEGATIVE) H 11/04/21 16:57 Urine Occult Blood LARGE (NEGATIVE) H 11/04/21 16:57 Urine Nitrite NEGATIVE (NEGATIVE) 11/04/21 16:57 Urine Bilirubin NEGATIVE (NEGATIVE) 11/04/21 16:57 Urine Urobilinogen 0.2 (NORMAL) E.U./dL (NORMAL) 11/04/21 16:57 Ur Leukocyte Esterase NEGATIVE (NEGATIVE) 11/04/21 16:57 Urine RBC 6-10 /HPF (0-5) H 11/04/21 16:57 Urine WBC 0-3 /HPF (0-3) 11/04/21 16:57 Ur Squamous Epith Cells FEW Squamous (<= Few) 11/04/21 16:57 Urine Bacteria Rare /HPF (None Seen) 11/04/21 16:57 Ur Microscopic Review INDICATED 11/04/21 16:57 Urine Culture Comments NOT INDICATED 11/04/21 16:57 Nasal Adenovirus (PCR) NOT DETECTED 11/04/21 16:05 Nasal B. parapertussis DNA (PCR) NOT DETECTED 11/04/21 16:05 Nasal Coronavir 229E PCR NOT DETECTED 11/04/21 16:05 Nasal Coronavir HKU1 PCR NOT DETECTED 11/04/21 16:05 Nasal Coronavir NL63 PCR NOT DETECTED 11/04/21 16:05 Nasal Coronavir OC43 PCR NOT DETECTED 11/04/21 16:05 Nasal Enterovir/Rhinovir PCR NOT DETECTED 11/04/21 16:05 Nasal Influenza B PCR NOT DETECTED 11/04/21 16:05 Nasal Influenza A PCR NOT DETECTED 11/04/21 16:05 Nasal Parainfluen 1 PCR NOT DETECTED 11/04/21 16:05 Nasal Parainfluen 2 PCR NOT DETECTED 11/04/21 16:05 Nasal Parainfluen 3 PCR NOT DETECTED 11/04/21 16:05 Nasal Parainfluen 4 PCR NOT DETECTED 11/04/21 16:05 Nasal RSV (PCR) NOT DETECTED 11/04/21 16:05 Nasal B.pertussis DNA PCR NOT DETECTED 11/04/21 16:05 Nasal C.pneumoniae (PCR) NOT DETECTED 11/04/21 16:05 Colt Human Metapneumo PCR NOT DETECTED 11/04/21 16:05 Nasal M.pneumoniae (PCR) NOT DETECTED 11/04/21 16:05 Nasal SARS-CoV-2 (PCR) NOT DETECTED 11/04/21 16:05 - Procedures Procedures: Procedures INSPECTION OF LOWER INTESTINAL TRACT, ENDO (12/19/15)
[2021-11-05] MEDS ORDERED: THIAMINE INJ 500 MG in SODIUM CHLORIDE 0.9% 50 ML IV ONE (19:41)
[2021-11-05] MEDS ORDERED: IOVERSOL 320 100 ML VIAL IVP ONE ×2 (21:04→22:26)
[2021-11-05] MEDS ORDERED: IOVERSOL 320 50 ML VIAL ONE (21:04)
[2021-11-05] MEDS ORDERED: IOVERSOL 320 50 ML VIAL PO ONE (22:27)
--- NOTE | 2021-11-05 22:47 | CT Report ---
PROCEDURE: Abdomen/Pelvis W INDICATIONS: Persistent N/V CONTRAST: IV CONTRAST: Optiray 320 ml: 100 PO CONTRAST: Optiray 320 [id number] TECHNIQUE: After the administration of oral and IV contrast, 5 mm thick sections acquired from the diaphragms to the symphysis. 5 mm thick coronal and sagittal reformats were acquired. For radiation dose reducti on, the following was used: automated exposure control, adjustment of mA and/or kV according to suzie ent size. COMPARISON: CT abdomen pelvis 11/02/2021 FINDINGS: Image quality: Excellent. ABDOMEN: Lung bases: Lung bases are clear. Heart size is normal. Solid organs: Liver and spleen are normal in size and enhancement. Gallbladder is unremarkable Mikael iary system is non dilated. Pancreas enhances normally. No adrenal nodules. Kidneys demonstrate no rmal size and enhancement, without hydronephrosis. Left renal cysts. Peritoneum and bowel: Bowel loops are nonobstructed. There is mild thickened appearance of several s mall bowel loops in the left hemiabdomen. Previous appearance of mild colonic wall thickening particu larly within the descending colon remains present although less prominent. Duodenal diverticulum is a gain noted. No free fluid or air. Nodes and vessels: No retroperitoneal or mesenteric adenopathy by size criteria. Aorta and inferior vena cava are normal in size. Miscellaneous: Fat-containing ventral hernia. PELVIS: Genitourinary: Bladder wall thickness is normal. Miscellaneous: No inguinal hernias or adenopathy. Bones: No suspicious bony lesions. No vertebral body compression fractures. IMPRESSION: Less prominent appearance of previous bowel wall thickening suggestive of early colitis. Mild appearance of thickened small bowel loops within the left hemiabdomen which could be related to enteritis. Reviewed by: Meme Damon MD on 11/05/2021 10:46 PM PDT Approved by: Meme Damon MD on 11/05/2021 10:46 PM PDT Station ID: [id number]
[2021-11-06] MEDS: D5NS W/20 MEQ KCL 1,000 ML IV SCH ×2 (01:09→09:16)
[2021-11-06] MEDS ORDERED: CALCIUM CARBONATE CHEW 500 MG TABLET PO PRN (01:15)
[2021-11-06] MEDS: SODIUM CHLORIDE FLUSH 0.9% 10 ML SYRINGE IVP SCH ×2 (04:08→13:48)
[2021-11-06] MEDS: PANTOPRAZOLE 40 MG VIAL IVP SCH (04:49)
[2021-11-06] MEDS ORDERED: MULTIVITAMIN 10 ML, THIAMINE INJ 100 MG, MAGNESIUM SULFATE 2 GM, FOLIC ACID INJ 1 MG in... IV SCH ×5 (09:00)
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
--- NOTE | 2021-11-06 11:47 | Discharge Plan ---
Discharge Plan Problem Reviewed?: Yes Disposition: Home, Self Care Condition: Fair Prescriptions: Pnv No.121/Iron/Folic Acid [ Multivitamin Tablet] 1 each PO DAILY #30 tablet Diet: Regular Activity Restrictions: Activity as Tolerated Shower Restrictions: No Driving Restrictions: Yes (no driving due to neuropathy, marijuana use and instability of walking) Assistance Devices: Cane Health Concerns: You presented to our emergency room because you have not been able to stop vomiting and had intractable nausea for 2 days. You were completely catatonic. Your eyes were completely open, staring, and we would speak to you but there is no response. You do have a history of cyclical vomiting from too much mar ijuana. You also have a previous history of stroke. We made sure you are not having another stroke and your CT was negative. It took you 2 days to wake up. On the third day you were awake, alert, oriented and wanted to go home. We have explained to you that you are doing too much marijuana and you need to cut back. You said you most likely were not going to stop. Today you also had an episode of irregular heartbeat that we call "polymorphic ventricular tachycardia". You have already been seen at [facility] for that. Please verify if you ever did your heart monitor after being discharged for them. It is very important you follow through with that because your heart could stop due to a lethal irregular heartbeat. That would result in . Plan of Treatment: 1. Cut back your marijuana use to half of what it is right now 2. No alcohol at all 3. Please see your primary care provider in the next 1 week to make sure that you had that heart monitor done when you were back at [place]. If you have not had it done, please make arrangements to have repeat monitoring of your heart for up to 30 days. Care Goals: Your goal is to remain at home, and you have no desire to change your lifestyle at this time. Assessment: Patient understands our goals, and clearly states his goals. At this time they seem to be in opposition. No Smoking: If you smoke, Please STOP! Call for help. Follow-up with: Naeem Arnold DO [Primary Care Provider] -
[2021-11-06 11:54] VITALS: BP 160/85
[2021-11-06] MEDS ORDERED: THIAMINE INJ 500 MG in SODIUM CHLORIDE 0.9% 50 ML IV SCH (18:00)
== END 2021-11-06 14:50 | disposition home or self-care (01) | DRG 896 ==
LOC: EDUNIT# → ED 13:14 → MS2 16:43 → OBSVTOIN 11-05 15:49
PROVIDERS: ADMIT Internal Medicine; ATTEND Specialist
DX: F12.221 Cannabis dependence with intoxication delirium (principal); G92.8 Other toxic encephalopathy; E87.6 Hypokalemia; R00.0 Tachycardia, unspecified; R11.15 Cyclical vomiting syndrome unrelated to migraine; R94.31 Abnormal electrocardiogram [ECG] [EKG]; K52.9 Noninfective gastroenteritis and colitis, unspecified; M54.9 Dorsalgia, unspecified; D72.829 Elevated white blood cell count, unspecified; I10 Essential (primary) hypertension; R19.7 Diarrhea, unspecified; R53.1 Weakness; Z20.822 Contact with and (suspected) exposure to COVID-19; F06.1 Catatonic disorder due to known physiological condition; F32.A Depression, unspecified; F41.9 Anxiety disorder, unspecified; Z91.14 Patient's other noncompliance with medication regimen; F43.10 Post-traumatic stress disorder, unspecified; K21.9 Gastro-esophageal reflux disease without esophagitis; E11.9 Type 2 diabetes mellitus without complications; E78.00 Pure hypercholesterolemia, unspecified; E86.0 Dehydration; M19.90 Unspecified osteoarthritis, unspecified site; G89.4 Chronic pain syndrome; I25.2 Old myocardial infarction; Z79.82 Long term (current) use of aspirin; Z79.899 Other long term (current) drug therapy; Z86.73 Personal history of transient ischemic attack (TIA), and cerebral infarction without residual deficits; Z87.891 Personal history of nicotine dependence
CPT/HCPCS: 36415; 70450; 70551; 74177; 80053; 81001; 83605; 83690; 83735; 84100; 84132; 85025; 87040; 87631; 93005; 96365; 96366; 96367; 96368; 96375; 96376; 99285; A9270; J1200; J2060; J3411; J7040; Q9967; 0202U; 81003; 87086

== ENCOUNTER 2022-02-24 11:09 | Outpatient (CLI) | payer MEDICARE, OTHER | END 2022-02-24 11:10 | disposition critical access hospital (66) | LOC: EMS 11:09 | DX: R41.82 Altered mental status, unspecified (principal) | CPT/HCPCS: A0425; A0427 ==

== ENCOUNTER 2022-02-24 11:17 | Inpatient (IN) | payer MEDICARE, OTHER ==
[2022-02-24] MEDS ORDERED: SODIUM CHLORIDE 0.9% 1,000 ML IV STA ×3 (11:36→13:56)
[2022-02-24 11:51] LABS: BASOPHILS % (AUTO) 0.1 %; HCT - HEMATOCRIT 50.4 % (42.0-52.0); HGB - HEMOGLOBIN 17.8 g/dL (14.0-18.0); LYMPHOCYTES # (AUTO) 2.3 10^3/uL (1.5-3.5); LYMPHOCYTES % (AUTO) 9.9 %; MEAN CORPUSCULAR HEMOGLOBIN 32.4 pg (27.0-31.0); MEAN CORPUSCULAR HGB CONC 35.3 g/dL (32.0-36.0); MEAN CORPUSCULAR VOLUME 91.6 fL (80.0-94.0); MEAN PLATELET VOLUME 9.8 fL (7.4-11.4); MONOCYTES # (AUTO) 2.4 10^3/uL (0.0-1.0); MONOCYTES % (AUTO) 10.3 %; NEUTROPHILS # (AUTO) 18.6 10^3/uL (1.5-6.6); NEUTROPHILS % (AUTO) 79.2 %; PLT - PLATELET COUNT 412 10^3/uL (130-450); RED CELL DISTRIBUTION WIDTH 13.7 % (12.0-15.0); WHITE BLOOD COUNT 23.5 x10^3/uL (4.8-10.8)
[2022-02-24 12:03] LABS: SLIDE REVIEW? Indicated
--- NOTE | 2022-02-24 12:11 | CT Report ---
PROCEDURE: CT brain without contrast INDICATIONS: AMS TECHNIQUE: Noncontrast 4.5 mm thick angled axial sections acquired from the foramen magnum to the vertex. For r adiation dose reduction, the following was used: automated exposure control, adjustment of mA and/or kV according to patient size. COMPARISON: None. FINDINGS: Image quality: Excellent. CSF spaces: Basal cisterns are patent. No extra-axial fluid collections. Ventricles are normal in size and shape. Brain: No midline shift. No intracranial masses or hemorrhage. Mora-white matter interface is norm al. Moderate atrophy and multifocal white matter chronic ischemic change noted. Atherosclerotic vasc ular calcification noted in the cavernous segments of both internal carotid arteries . Skull and face: Calvarium and visualized facial bones are intact, without suspicious lesions. Sinuses: Visualized sinuses and mastoids are clear. IMPRESSION: Atrophy and chronic ischemic change without intracranial hemorrhage or mass effect Reviewed by: Luis Alfredo Brown MD on 02/24/2022 11:10 AM MICK Approved by: Luis Alfredo Brown MD on 02/24/2022 11:10 AM MICK Station ID: [id number]
--- NOTE | 2022-02-24 12:14 | XRAY Report ---
PROCEDURE: Chest 1 View X-Ray INDICATIONS: AMS TECHNIQUE: One view of the chest was acquired. COMPARISON: 11/02/2021 FINDINGS: Surgical changes and devices: None. Lungs and pleura: No pleural effusions or pneumothorax. Lungs are clear. Mediastinum: Mediastinal contours appear normal. Heart size is normal. Bones and chest wall: No suspicious bony lesions. Overlying soft tissues appear unremarkable. IMPRESSION: No acute cardiopulmonary findings Reviewed by: Luis Alfredo Brown MD on 02/24/2022 11:13 AM MICK Approved by: Luis Alfredo Brown MD on 02/24/2022 11:13 AM MICK Station ID: [id number]
[2022-02-24 12:23] LABS: RBC MORPHOLOGY (MULTIPLE) 1+ ANISOCYTOSIS (NORMAL)
--- NOTE | 2022-02-24 12:25 | CT Report ---
PROCEDURE: CT abdomen pelvis without contrast INDICATIONS: AMS/vomiting/pain TECHNIQUE: Noncontrast 5 mm thick sections acquired from the diaphragms to the symphysis. 5 mm coronal and sagi ttal reformats were then performed. For radiation dose reduction, the following was used: automated exposure control, adjustment of mA and/or kV according to patient size. COMPARISON: None. FINDINGS: Lower thorax: The lung bases are clear. Heart size normal. No hiatal hernia. Liver: Normal in size and attenuation. No contour deformity present. Biliary system: No calcified cholelithiasis or pericholecystic inflammation. No evidence of bile du ct dilatation. Pancreas: Unremarkable without mass or inflammation evident. Spleen: Normal in size and density. Adrenals: Normal morphology and density. Reproductive system: Unremarkable as visualized. Urinary system: Normal renal size and attenuation. 1.7 cm left renal cortical cyst present. No renal calculi, hydronephrosis, or solid mass present. Urinary bladder unremarkable. Gastrointestinal system: The bowel appears unremarkable with no evidence of bowel obstruction or inf lammation. The stomach appears unremarkable. Appendix: No findings to suggest acute appendicitis. Peritoneal spaces: No mesenteric or retroperitoneal adenopathy. No free air. No free fluid. Vasculature: The IVC, aorta and iliac vasculature are unremarkable. Musculoskeletal: Normal bone mineralization. No acute fractures. At least 2 separate small ventral hernia contains fat without bowel involvement. Degenerative disc disease and arthropathy lower lumbar lumbar spine results in severe central stenosis at L3-4 IMPRESSION: No acute CT findings in the abdomen and pelvis. Multilevel degenerative disc disease and arthropathy lower lumbar spine associated with severe centra l spinal stenosis at L3-4 Reviewed by: Luis Alfredo Brown MD on 02/24/2022 11:24 AM MICK Approved by: Luis Alfredo Brown MD on 02/24/2022 11:24 AM [place] Station ID: [id number]
[2022-02-24 12:39] LABS: ALBUMIN/GLOBULIN RATIO 1.4 (1.0-2.2); ALKALINE PHOSPHATASE 55 IU/L (42-121); ALT ALANINE AMINOTRANSFERASE 39 IU/L (10-60); AST ASPARTATE AMINOTRANSFERASE 86 IU/L (10-42); BILIRUBIN,TOTAL 1.8 mg/dL (0.2-1.0); BUN - BLOOD UREA NITROGEN 59 mg/dL (6-20); CALCIUM 10.7 mg/dL (8.5-10.3); CARBON DIOXIDE - CO2 17 mmol/L (21-32); CHLORIDE 108 mmol/L (101-111); CREATININE 1.3 mg/dL (0.6-1.2); ETOH - ETHANOL < 5.0 mg/dL; GFR - MDRD 55 (>89); GLUCOSE 202 mg/dL (70-100); LIPASE 38 U/L (22-51); MAGNESIUM 2.3 mg/dL (1.7-2.8); SODIUM 150 mmol/L (135-145); TOTAL PROTEIN 8.5 g/dL (6.7-8.2)
[2022-02-24 12:41] LABS: POTASSIUM 2.5 mmol/L (3.5-5.0)
[2022-02-24 12:42] LABS: CK- CREATINE KINASE 1841 IU/L (22-269)
[2022-02-24] MEDS: POTASSIUM CHLOR 10 MEQ/100 ML 10 MEQ/100 ML BAG IV SCH ×4 (12:49→16:26)
--- NOTE | 2022-02-24 13:23 | ED Physician Documentation ---
PD HPI ALTERED MENTAL STATUS - Stated complaint Stated Complaint: AMS - Chief complaint Chief Complaint: Neuro - History obtained from History obtained from: EMS - Additional information Additional information: Patient is a 71-year-old male presenting for evaluation of altered mental status. Per EMS the last known normal was on Friday. Family called today because patient was having not tolerating p.o. intake and was "spitting up blood". Patient has a history of alcohol and cannabis abuse. He had a recent admission in October with similar presentation and found to have severe hypokalemia. His mentation did improve over the course of 2 days.History is very limited as patient is not able to provide any and I am unable to reach family.No reports of trauma. Review of Systems Unable to obtain: AMS PD PAST MEDICAL HISTORY - Past Medical History Cardiovascular: Hypertension, High cholesterol Respiratory: None Neuro: CVA, Tremors Endocrine/Autoimmune: None GI: GERD, Other : None HEENT: None Psych: Depression, Anxiety, Post traumatic stress disorder Musculoskeletal: Osteoarthritis, Other Derm: Other - Past Surgical History Past Surgical History: Yes General: Bowel surgery (Partial colectomy due to incarcerated bowel.) Ortho: Other - Present Medications Home Medications: Ambulatory Orders Medication Instructions Recorded Confirmed Gabapentin [Neurontin] 300 mg PO TID PRN 06/16/13 11/05/21 Sertraline [Zoloft] 100 mg PO DAILY 06/16/13 11/04/21 Cyclobenzaprine [Flexeril] 10 mg PO TID PRN 12/19/15 11/04/21 Lisinopril 20 mg PO DAILY 12/19/15 11/04/21 Omeprazole [PriLOSEC] 20 mg PO DAILY 12/19/15 11/05/21 Prazosin HCl [Minipress] 4 mg PO DAILY PM 12/19/15 11/04/21 buPROPion [Wellbutrin Sr] 150 mg PO BID 12/19/15 11/04/21 Atorvastatin Calcium 40 mg PO DAILY 01/20/17 11/04/21 Metoclopramide [Reglan] 10 mg PO Q6H PRN #20 tablet 09/05/18 11/04/21 Ondansetron Odt [Zofran Odt] 4 mg TL Q6H PRN #10 tablet 02/06/21 11/04/21 Propranolol ER [Inderal LA] 60 mg PO DAILY 02/06/21 11/04/21 Aspirin EC [Ecotrin] 81 mg PO DAILY 11/04/21 11/04/21 hydrOXYzine HCL [Hydroxyzine HCl] 25 mg PO TID PRN 11/05/21 11/05/21 Calcium Carbonate [Tums (Calcium 500 mg PO TID PRN tablet 11/06/21 Carbonate 500mg)] Pnv No.121/Iron/Folic Acid 1 each PO DAILY #30 tablet 11/06/21 [ Multivitamin Tablet] - Allergies Allergies/Adverse Reactions: Allergies Allergy/AdvReac Type Severity Reaction Status Date / Time bee venom protein (honey bee) Allergy Unknown Verified 02/24/22 11:23 - Social History Does the pt smoke?: No Smoking Status: Unknown if ever smoked Does the pt drink ETOH?: No Does the pt have substance abuse?: Yes - Immunizations Immunizations are current?: Yes Immunizations: TDAP >10years/unknown - POLST Patient has POLST: No POLST Status: Full Code PD ED PE NORMAL - General General: No acute distress, Well developed/nourished, Other (Alert, follows some commands, will not answer questions, Appears older than stated age) - HEENT HEENT: Atraumatic, PERRL, EOMI, Pharynx benign. No: Moist mucous membranes (Dry mucous membranes) - Neck Neck: Supple, no meningeal sign, No bony TTP - Cardiac Cardiac: RRR, No murmur, Strong equal pulses, Other (Tachycardic, regular rhythm) - Respiratory Respiratory: No respiratory distress, Clear bilaterally - Abdomen Abdomen: Normal bowel sounds, Soft, Non tender, Non distended - Extremities Extremities: No edema - Neuro Neuro: No motor deficit (Moves all extremities), Other (No facial asymmetry, tongue is midline). No: Alert and oriented X 3 (Alert, answers no to some questions or 60s head yes to others but otherwise not answering) Eye Opening: Spontaneous Motor: Obeys Commands Verbal: Inappropriate GCS Score: 13 Results - Vitals Vitals: Vital Signs - 24 hr 02/24/22 02/24/22 02/24/22 11:24 12:09 12:41 Temperature 36.7 C Heart Rate 121 H 114 H 121 H Respiratory 14 20 16 Rate Blood Pressure 168/114 H 178/125 H 169/121 H O2 Saturation 99 100 100 07/17/22 07/17/22 07/17/22 13:00 14:20 14:30 Temperature Heart Rate 100 105 H 116 H Respiratory 19 16 22 Rate Blood Pressure 175/119 H 167/117 H 178/100 H O2 Saturation 100 100 97 02/24/22 02/24/22 02/24/22 15:18 15:30 16:02 Temperature Heart Rate 121 H 115 H 118 H Respiratory 31 H 30 H 18 Rate Blood Pressure 152/107 H 167/112 H 160/115 H O2 Saturation 97 96 96 02/24/22 02/24/22 02/24/22 16:30 17:00 17:52 Temperature 37 C Heart Rate 106 H 110 H 108 H Respiratory 24 21 19 Rate Blood Pressure 167/113 H 156/110 H 129/114 H O2 Saturation 98 95 97 02/24/22 18:00 Temperature Heart Rate 112 H Respiratory 32 H Rate Blood Pressure 164/108 H O2 Saturation 95 Oxygen O2 Source Room air - EKG (time done) 1121 Rate: Rate (enter#) (119) Rhythm: Sinus tachycardia Intervals: Other (QTC 454) Ischemia: No: ST elevation c/w ischemia 1327 Rate: Rate (enter#) (122) Rhythm: Sinus tachycardia Intervals: Other (QTC is 441) Ischemia: No: ST elevation c/w ischemia - Labs Labs: Laboratory Tests 02/24/22 02/24/22 02/24/22 11:41 11:41 11:41 WBC 23.5 H RBC 5.50 Hgb 17.8 Hct 50.4 MCV 91.6 MCH 32.4 H MCHC 35.3 RDW 13.7 Plt Count 412 MPV 9.8 Neut # (Auto) 18.6 H Lymph # (Auto) 2.3 [place] # (Auto) 2.4 H Eos # (Auto) 0.0 Baso # (Auto) 0.0 Absolute Nucleated RBC 0.00 Nucleated RBC % 0.0 Manual Slide Review Indicated RBC Morph Micro Appear 1+ ANISOCYTOSIS Sodium 150 H Potassium 2.5 L* Chloride 108 Carbon Dioxide 17 L Anion Gap 25.0 H BUN 59 H Creatinine 1.3 H Estimated GFR (MDRD) 55 L Glucose 202 H Lactic Acid Calcium 10.7 H Magnesium 2.3 Total Bilirubin 1.8 H AST 86 H ALT 39 Alkaline Phosphatase 55 Total Creatine Kinase 1841 H* Troponin I High Sens 79.2 H* Total Protein 8.5 H Albumin 5.0 Globulin 3.5 Albumin/Globulin Ratio 1.4 Lipase 38 Urine Color Urine Clarity Urine pH Ur Specific [place] Urine Protein Urine Glucose (UA) Urine Ketones Urine Occult Blood Urine Nitrite Urine Bilirubin Urine Urobilinogen Ur Leukocyte Esterase Urine RBC Urine WBC Ur Squamous Epith Cells Urine Bacteria Urine Mucus Ur Microscopic Review Urine Culture Comments Urine Opiates Screen Ur Oxycodone Screen Urine Methadone Screen Ur Propoxyphene Screen Ur Barbiturates Screen Ur Tricyclics Screen Ur Phencyclidine Scrn Ur Amphetamine Screen U Methamphetamines Scrn U Benzodiazepines Scrn Urine Cocaine Screen U Cannabinoids Screen Ethyl Alcohol < 5.0 SARS-CoV-2 (PCR) 02/24/22 02/24/22 02/24/22 11:41 13:00 13:40 WBC RBC Hgb Hct MCV MCH MCHC RDW Plt Count MPV Neut # (Auto) Lymph # (Auto) [place] # (Auto) Eos # (Auto) Baso # (Auto) Absolute Nucleated RBC Nucleated RBC % Manual Slide Review RBC Morph Micro Appear Sodium Potassium Chloride Carbon Dioxide Anion Gap BUN Creatinine Estimated GFR (MDRD) Glucose Lactic Acid 2.2 Calcium Magnesium Total Bilirubin AST ALT Alkaline Phosphatase Total Creatine Kinase Troponin I High Sens 55.8 H* Total Protein Albumin Globulin Albumin/Globulin Ratio Lipase Urine Color Urine Clarity Urine pH Ur Specific [place] Urine Protein Urine Glucose (UA) Urine Ketones Urine Occult Blood Urine Nitrite Urine Bilirubin Urine Urobilinogen Ur Leukocyte Esterase Urine RBC Urine WBC Ur Squamous Epith Cells Urine Bacteria Urine Mucus Ur Microscopic Review Urine Culture Comments Urine Opiates Screen Ur Oxycodone Screen Urine Methadone Screen Ur Propoxyphene Screen Ur Barbiturates Screen Ur Tricyclics Screen Ur Phencyclidine Scrn Ur Amphetamine Screen U Methamphetamines Scrn U Benzodiazepines Scrn Urine Cocaine Screen U Cannabinoids Screen Ethyl Alcohol SARS-CoV-2 (PCR) NOT DETECTED 02/24/22 14:30 WBC RBC Hgb Hct MCV MCH MCHC RDW Plt Count MPV Neut # (Auto) Lymph # (Auto) [place] # (Auto) Eos # (Auto) Baso # (Auto) Absolute Nucleated RBC Nucleated RBC % Manual Slide Review RBC Morph Micro Appear Sodium Potassium Chloride Carbon Dioxide Anion Gap BUN Creatinine Estimated GFR (MDRD) Glucose Lactic Acid Calcium Magnesium Total Bilirubin AST ALT Alkaline Phosphatase Total Creatine Kinase Troponin I High Sens Total Protein Albumin Globulin Albumin/Globulin Ratio Lipase Urine Color DARK YELLOW Urine Clarity HAZY Urine pH 6.0 Ur Specific [place] >=1.030 H Urine Protein >=300 H Urine Glucose (UA) NEGATIVE Urine Ketones 15 H Urine Occult Blood LARGE H Urine Nitrite NEGATIVE Urine Bilirubin NEGATIVE Urine Urobilinogen 0.2 (NORMAL) Ur Leukocyte Esterase NEGATIVE Urine RBC 0-5 Urine WBC 0-3 Ur Squamous Epith Cells RARE Squamous Urine Bacteria Rare Urine Mucus Few Strands Ur Microscopic Review INDICATED Urine Culture Comments NOT INDICATED Urine Opiates Screen NEGATIVE Ur Oxycodone Screen NEGATIVE Urine Methadone Screen NEGATIVE Ur Propoxyphene Screen NEGATIVE Ur Barbiturates Screen NEGATIVE Ur Tricyclics Screen POSITIVE H Ur Phencyclidine Scrn NEGATIVE Ur Amphetamine Screen NEGATIVE U Methamphetamines Scrn NEGATIVE U Benzodiazepines Scrn NEGATIVE Urine Cocaine Screen NEGATIVE U Cannabinoids Screen POSITIVE H Ethyl Alcohol SARS-CoV-2 (PCR) PD MEDICAL DECISION MAKING - ED course ED course: Pt with AMS. On arrival, will answer "no" but otherwise does not answer questions. Tracks provider in room and can sit himself up as well as follow commands. No focal weakness noted. CT head neg for acute findings. Labs with significant metabolic derangements including hypernatremia and hypokalemia and JEN. Pt does have leukocytosis. No signs of infection on chest xray, urine or abd/pelvis CT. Reported vomiting of ?coffee ground emesis. No vomiting for 1 day and H/H appears stable. Pt is tachycardic but otherwise VSS. Suspect dehydration given poor PO intake and recent vomiting. CK elevated. Pt given 2L IV bolus and on 250ml/hr IVF. Suspect AMS related to metabolic causes. Pts did arrive in ER. Says he started vomiting Fri/ and it appeared brown in color. Vomiting stopped yesterday and he was tolerating gatorade she was giving him. However, he has been weaker since Friday and not acting at his baseline. He has been laying in bed for the past 24 hours, too weak to get up. No trauma. 1608 - Discussed with Dr. Mendosa - Pt Meets criteria for full inpatient. We will admit the patient. Departure - Departure Disposition: 66 [facility] DC/Xfer Clinical Impression: Dehydration, Hypokalemia, Hypernatremia, Cannabis abuse Altered mental status Qualifiers: Altered mental status type: unspecified Qualified Code(s): R41.82 - Altered mental status, unspecified Rhabdomyolysis Qualifiers: Rhabdomyolysis type: non-traumatic Qualified Code(s): M62.82 - Rhabdomyolysis Leukocytosis Qualifiers: Leukocytosis type: unspecified Qualified Code(s): D72.829 - Elevated white blood cell count, unspecified Condition: Serious Discharge Date/Time: 02/24/22 18:58
[2022-02-24] MEDS ORDERED: LORazepam 2 MG/ML VIAL IVP STA (14:18)
[2022-02-24] MEDS ORDERED: LIDOCAINE 2% URO-JET 5 ML SYRINGE UR STA (14:23)
[2022-02-24 14:36] LABS: MUDS CUTOFF CONCENTRATIONS CUTOFF CONC BELOW:
[2022-02-24 14:38] LABS: GLUCOSE, URINE (UA) NEGATIVE (NEGATIVE); KETONES,URINE (UA) 15 mg/dL (NEGATIVE); LEUKOCYTE ESTERASE, URINE NEGATIVE (NEGATIVE); NITRITE,URINE NEGATIVE (NEGATIVE); OCCULT BLOOD,URINE LARGE (NEGATIVE); PROTEIN,URINE >=300 mg/dL (NEGATIVE); UROBILINOGEN,URINE 0.2 (NORMAL) E.U./dL (NORMAL)
[2022-02-24 14:42] LABS: BILIRUBIN,URINE NEGATIVE (NEGATIVE); CLARITY,URINE HAZY (CLEAR); ICTOTEST,URINE NEGATIVE
[2022-02-24 14:59] LABS: AMPHETAMINE SCREEN,URINE NEGATIVE (NEGATIVE); BARBITURATE SCREEN,UR NEGATIVE (NEGATIVE); BENZODIAZEPINES SCREEN, URINE NEGATIVE (NEGATIVE); COCAINE SCREEN URINE NEGATIVE (NEGATIVE); METHADONE SCREEN, URINE NEGATIVE (NEGATIVE); METHAMPHETAMINES SCREEN, URINE NEGATIVE (NEGATIVE); OPIATE SCREEN, URINE NEGATIVE (NEGATIVE); OXYCODONE SCREEN, URINE NEGATIVE (NEGATIVE); PROPOXYPHENE SCREEN, URINE NEGATIVE (NEGATIVE); THC CANNABINOID SCREEN, URINE POSITIVE (NEGATIVE); TRICYCLIC ANTIDEPRESSANT,URINE POSITIVE (NEGATIVE)
[2022-02-24 15:03] LABS: BACTERIA,URINE Rare /HPF (None Seen); RBC,URINE 0-5 /HPF (0-5); SQUAMOUS EPITHELIAL CELL,UR RARE Squamous (<= Few); WBC,URINE 0-3 /HPF (0-3)
[2022-02-24 15:04] LABS: MUCUS,URINE Few Strands
[2022-02-24] MEDS: SODIUM CHLORIDE FLUSH 0.9% 10 ML SYRINGE IVP PRN (19:09)
[2022-02-24] MEDS: D5.45NS W/20 MEQ KCL 1,000 ML IV SCH (19:09)
--- NOTE | 2022-02-24 19:31 | HISTORY & PHYSICAL EXAMINATION ---
Chief Complaint - Chief Complaint Chief Complaint: altered mental status History of Present Illness - Admitted From Admitted From:: [facility] ED - History Obtained From Records Reviewed: yes History obtained from: ED provider's H&P Exam Limitations: altered mental status - History of Present Illness HPI Comment/Other: "Patient is a 71-year-old male presenting for evaluation of altered mental status. Per EMS the last known normal was on Friday. Family called today because patient was having not tolerating p.o. intake and was "spitting up blood". Patient has a history of alcohol and cannabis abuse. He had a recent admission in October with similar presentation and found to have severe hypokalemia. His mentation did improve over the course of 2 days.History is very limited as patient is not able to provide any and I am unable to reach family.No reports of trauma." The HPI above was obtained from the ED providers H&P because the patient is currently altered and unable to provide a history. At bedside he is awake but somnolent. He does not able to give any appropriate or significant response to questions asked. He does not seem to be in any distress. History - Past Medical History Cardiovascular: reports: Hypertension, High cholesterol Respiratory: reports: None Neuro: reports: CVA, Tremors Endocrine/Autoimmune: reports: None GI: reports: GERD, Other : reports: None HEENT: reports: None Psych: reports: Depression, Anxiety, Post traumatic stress disorder Musculoskeletal: reports: Osteoarthritis, Other Derm: reports: Other MRSA Hx?: No - Past Surgical History General: reports: Bowel surgery (Partial colectomy due to incarcerated bowel.) Ortho: reports: Other - Family & Social History Family History Comment/Other: Family history is limited due to altered mental status and patient being unable to provide a reliable history. Living Situation: With spouse/s.o. Social History Notes: He lives at home with his . He used to drink heavily but stopped doing so about a year ago. He appears to have replaced alcohol consumption with marijuana use which he does on a daily basis. - POLST Patient has POLST: No POLST Status: Full Code Meds/Allgy - Home Medications Home Medications: Ambulatory Orders Medication Instructions Recorded Confirmed Gabapentin [Neurontin] 300 mg PO TID PRN 06/16/13 11/05/21 Sertraline [Zoloft] 100 mg PO DAILY 06/16/13 11/04/21 Cyclobenzaprine [Flexeril] 10 mg PO TID PRN 12/19/15 11/04/21 Lisinopril 20 mg PO DAILY 12/19/15 11/04/21 Omeprazole [PriLOSEC] 20 mg PO DAILY 12/19/15 11/05/21 Prazosin HCl [Minipress] 4 mg PO DAILY PM 12/19/15 11/04/21 buPROPion [Wellbutrin Sr] 150 mg PO BID 12/19/15 11/04/21 Atorvastatin Calcium 40 mg PO DAILY 01/20/17 11/04/21 Metoclopramide [Reglan] 10 mg PO Q6H PRN #20 tablet 09/05/18 11/04/21 Ondansetron Odt [Zofran Odt] 4 mg TL Q6H PRN #10 tablet 02/06/21 11/04/21 Propranolol ER [Inderal LA] 60 mg PO DAILY 02/06/21 11/04/21 Aspirin EC [Ecotrin] 81 mg PO DAILY 11/04/21 11/04/21 hydrOXYzine HCL [Hydroxyzine HCl] 25 mg PO TID PRN 11/05/21 11/05/21 Calcium Carbonate [Tums (Calcium 500 mg PO TID PRN tablet 11/06/21 Carbonate 500mg)] Pnv No.121/Iron/Folic Acid 1 each PO DAILY #30 tablet 11/06/21 [ Multivitamin Tablet] - Allergies Allergies/Adverse Reactions: Allergies Allergy/AdvReac Type Severity Reaction Status Date / Time bee venom protein (honey bee) Allergy Unknown Verified 02/24/22 11:23 Review of Systems - Other Findings Other Findings: A 12 point review of system is currently limited because the patient is altered and unable to provide a reliable history. Prior Level of Functionality: Patient is normally independent of activities of daily living. Exam - Vital Signs Vital Signs: Vital Signs x48h Temp Pulse Resp BP Pulse Ox 02/24/22 18:00 112 H 32 H 164/108 H 95 02/24/22 17:52 37 C 108 H 19 129/114 H 97 02/24/22 17:00 110 H 21 156/110 H 95 02/24/22 16:30 106 H 24 167/113 H 98 02/24/22 16:02 118 H 18 160/115 H 96 02/24/22 15:30 115 H 30 H 167/112 H 96 02/24/22 15:18 121 H 31 H 152/107 H 97 02/24/22 14:30 116 H 22 178/100 H 97 02/24/22 14:20 105 H 16 167/117 H 100 02/24/22 13:00 100 19 175/119 H 100 02/24/22 12:41 121 H 16 169/121 H 100 02/24/22 12:09 114 H 20 178/125 H 100 - Physical Exam General Appearance: positive: No acute distress, Lethargic Eyes Bilateral: positive: PERRL, EOMI ENT: positive: Dry mucous membranes Neck: positive: No JVD, Trachea midline Respiratory: positive: Chest non-tender, No respiratory distress, Breath sounds nml. negative: Wheezes, Rales, Rhonchi Cardiovascular: positive: Regular rate & rhythm Abdomen: positive: Non-tender, No organomegaly, Nml bowel sounds, No distention. negative: Guarding, Rebound Skin: positive: Color nml, No rash, Warm, Dry Extremities: positive: Non-tender, Full ROM, Nml appearance, No pedal edema Neurologic/Psychiatric: positive: Disoriented to place, Disoriented to time Conclusion/Plan - Problem List (1) Altered mental status Conclusion/Plan: Likely 2/2 to marijuana use Patient was admitted to the hospital in October 2021 for the same reason He was catatonic for 3 days at the last hospital stay CT brain was negative Continue IV hydration. Will monitor for improvement over the ensuing days (2) Cannabis abuse Conclusion/Plan: He continues to use cannabis heavily. He was advised at the last discharge date to decrease his use but he responded that he had no plans to do so (3) Hypokalemia Conclusion/Plan: Potassium was 2.5 KCl 40mEq IV given Will recheck and replace accordingly. (4) Intractable nausea and vomiting Conclusion/Plan: Likely 2/2 marijuana use. Zofran 4mg IV q6hrs prn (5) Dehydration Conclusion/Plan: Likely 2/2 nausea and vomiting Creatinine 1.3 with eGFR 55 IV hydration with D5+half NS at 100ml/hr (6) Depression with anxiety Conclusion/Plan: On zoloft and wellbutrin (7) Hypertension Conclusion/Plan: Patient is normally on lisinopril and propanolol Labetalol 10mg IV q6hr prn for SBP > 160 (8) Hyperlipidemia Conclusion/Plan: Atorvastatin 40mg po qpm (9) Rhabdomyolysis Conclusion/Plan: CK was 1841 Continue IV hydration with D5+ half NS at 100ml/hr - Lab Results Fish Bones: 02/24/22 11:41 02/24/22 11:41 Core Measures - Anticipated LOS I expect patient to be DC'd or transferred within 96 hours.: Yes - DVT/VTE - Prophylaxis VTE/DVT Device ordered at admit?: Yes VTE/DVT Prophylaxis med ordered at admit?: Yes
[2022-02-24] MEDS: LABETALOL 20 MG/4 ML SYRINGE IVP PRN (20:37)
[2022-02-25] MEDS: SODIUM CHLORIDE FLUSH 0.9% 10 ML SYRINGE IVP SCH ×4 (02:15→23:32)
[2022-02-25] MEDS: D5.45NS W/20 MEQ KCL 1,000 ML IV SCH ×3 (04:39→23:32)
[2022-02-25 05:40] LABS: BASOPHILS % (AUTO) 0.1 %; EOSINOPHILS % (AUTO) 0.1 %; HCT - HEMATOCRIT 42.2 % (42.0-52.0); HGB - HEMOGLOBIN 14.3 g/dL (14.0-18.0); LYMPHOCYTES % (AUTO) 8.4 %; MEAN CORPUSCULAR HEMOGLOBIN 31.8 pg (27.0-31.0); MEAN CORPUSCULAR HGB CONC 33.9 g/dL (32.0-36.0); MEAN CORPUSCULAR VOLUME 93.8 fL (80.0-94.0); MEAN PLATELET VOLUME 9.8 fL (7.4-11.4); MONOCYTES % (AUTO) 8.7 %; NEUTROPHILS # (AUTO) 9.4 10^3/uL (1.5-6.6); NEUTROPHILS % (AUTO) 82.4 %; PLT - PLATELET COUNT 239 10^3/uL (130-450); RED CELL DISTRIBUTION WIDTH 13.9 % (12.0-15.0); WHITE BLOOD COUNT 11.5 x10^3/uL (4.8-10.8)
[2022-02-25 06:00] LABS: CALCIUM 9.2 mg/dL (8.5-10.3); CREATININE 0.8 mg/dL (0.6-1.2); MAGNESIUM 2.3 mg/dL (1.7-2.8); PHOSPHORUS 2.9 mg/dL (2.5-4.6); POTASSIUM 2.9 mmol/L (3.5-5.0)
[2022-02-25] MEDS: POTASSIUM CHLOR 10 MEQ/100 ML 10 MEQ/100 ML BAG IV SCH ×4 (11:15→16:48)
[2022-02-25] MEDS: LABETALOL 20 MG/4 ML SYRINGE IVP PRN (12:59)
--- NOTE | 2022-02-25 13:32 | PHARMACY PROGRESS NOTE ---
- Best Possible Medication History Admit Date and Time: 02/24/221806 Processed by: Pharmacy Medication History completed: Yes Patient Interview: Pt unable to participate Secondary Source(s): Written medication list, Physician records, Pharmacy rec ords, Insurance records As the person ultimately responsible for medication therapy, providers are able to order a medication from an existing home medication list in [facility] via the "Reconcile Routine" prior to Confirmation of that medication by server support technician. Such practice is discouraged except when the physician, in their clinical judgment, deems that a medical need exists for a medication without regard to previous use.
[2022-02-25 18:14] LABS: CREATININE 0.7 mg/dL (0.6-1.2); POTASSIUM 3.3 mmol/L (3.5-5.0)
[2022-02-25] MEDS ORDERED: POTASSIUM CHLOR 10 MEQ/100 ML 10 MEQ/100 ML BAG IV ONE ×2 (20:18→21:30)
[2022-02-25] MEDS: ONDANSETRON 4 MG/2 ML VIAL IVP PRN (20:26)
[2022-02-25] MEDS ORDERED: PROCHLORPERAZINE 10 MG/2 ML VIAL IVP PRN (22:45)
[2022-02-25] MEDS ORDERED: LORazepam 2 MG/ML VIAL IVP STA (22:46)
[2022-02-25] MEDS: SODIUM CHLORIDE FLUSH 0.9% 10 ML SYRINGE IVP PRN (23:01)
[2022-02-26 08:10] LABS: CALCIUM 8.9 mg/dL (8.5-10.3); CREATININE 0.6 mg/dL (0.6-1.2); POTASSIUM 3.4 mmol/L (3.5-5.0)
[2022-02-26] MEDS: SODIUM CHLORIDE FLUSH 0.9% 10 ML SYRINGE IVP SCH ×3 (10:19→23:31)
[2022-02-26] MEDS: ONDANSETRON 4 MG/2 ML VIAL IVP PRN ×2 (12:16→21:16)
[2022-02-26] MEDS: D5.45NS W/20 MEQ KCL 1,000 ML IV SCH ×2 (15:57→21:24)
[2022-02-26] MEDS: LABETALOL 20 MG/4 ML SYRINGE IVP PRN (16:38)
[2022-02-26] MEDS: SODIUM CHLORIDE FLUSH 0.9% 10 ML SYRINGE IVP PRN ×2 (16:39→21:18)
--- NOTE | 2022-02-26 16:46 | PROVIDER PROGRESS NOTE ---
Assessment/Plan - Problem List (1) Altered mental status Qualifiers: Altered mental status type: unspecified Qualified Code(s): R41.82 - Altered mental status, unspecified Assessment/Plan: Likely 2/2 to marijuana use Patient was admitted to the hospital in October 2021 for the same reason with the same presentation. He was nearly catatonic then for 3 days at the last hospital stay CT brain was negative in ED Continue IV hydration. Will monitor for improvement over the ensuing days (2) Cannabis abuse Conclusion/Plan: He continues to use cannabis heavily per report He was advised at the last discharge date to decrease his use but he responded that he had no plans to do so (3) Hypokalemia Conclusion/Plan: Potassium was low again on labs, likely due to decreased intake KCl 40mEq iv rider ordered Will monitor and replace accordingly. (4) Intractable nausea and vomiting Conclusion/Plan: Likely due to marijuana use. Zofran 4mg IV q6hrs prn ordered A clear liquid diet has been ordered for him to try. (5) Dehydration Conclusion/Plan: Likely from nausea and vomiting Creatinine 1.3 with eGFR 55 on admission labs IV hydration continues with D5+half NS at 100ml/hr (6) Depression with anxiety Conclusion/Plan: On zoloft and wellbutrin per Hx. He is not wanting to swallow even clear liquids currently. (7) Hypertension Conclusion/Plan: Patient is normally on lisinopril and propanolol We ordered Labetalol 10mg IV q6hr prn for SBP > 160, since he is not swallowing (8) Hyperlipidemia Conclusion/Plan: Atorvastatin 40mg po qpm is his usual med (9) Rhabdomyolysis Conclusion/Plan: CK was 1841>> 755 today Continue IV hydration with D5+ half NS at 100ml/hr - Current Meds Current Meds: Current Medications Generic Name Dose Route Start Last Admin Trade Name Freq PRN Reason Stop Dose Admin Potassium Chloride/Dextrose/Sod Cl 1,000 mls @ 100 mls/hr 02/24/22 19:00 02/26/22 15:57 D5.45ns W/20 Meq Kcl IV 100 mls/hr .Q10H NORMA Administration Labetalol HCl 10 mg 02/24/22 20:15 02/26/22 16:38 Labetalol 20 Mg/4 Ml Syringe IVP 10 mg Q6H PRN Administration PER PHYSICIAN ORDER Ondansetron HCl 4 mg 02/24/22 18:07 02/26/22 12:16 Ondansetron 4 Mg/2 Ml Vial IVP 4 mg Q6HR PRN Administration Nausea / Vomiting Prochlorperazine Edisylate 10 mg 02/25/22 22:45 02/26/22 15:58 Prochlorperazine 10 Mg/2 Ml Vial IVP 10 mg Q6HR PRN Administration Nausea / Vomiting Sodium Chloride 10 ml 02/24/22 18:07 02/26/22 16:39 Sodium Chloride Flush 0.9% 10 Ml Syringe IVP 10 ml PRN PRN Administration NEEDED PER PROVIDER ORDERS Sodium Chloride 10 ml 02/25/22 01:00 02/26/22 15:57 Sodium Chloride Flush 0.9% 10 Ml Syringe IVP 10 ml 0100,0900,1700 NORMA Administration - Lab Result Fish Bone Diagrams: 02/25/22 05:28 02/26/22 07:51 - Additional Planning My Orders: My Active Orders 02/27/22 05:00 BMP - BASIC METABOLIC PANEL [CHEM] DAILYLAB Subjective - Subjective Patient Reports: Other (Not answering, follows with eyes, is watching TV, is able to push away his meal tray and did not eat. No vomiting) Objective Vital Signs: Vital Signs - 24 hr 02/25/22 02/25/22 02/25/22 16:49 20:29 23:41 Temperature 36.4 C L 36.9 C Heart Rate [ 69 67 69 Brachial] Respiratory 16 Rate Blood Pressure 152/94 H [Left Brachial artery] Blood Pressure 160/96 H 152/94 H [Right Brachial artery] O2 Saturation 24 L 99 02/26/22 02/26/22 02/26/22 04:56 07:26 11:42 Temperature 36.7 C 36.6 C Heart Rate [ 73 70 66 Brachial] Respiratory 16 18 18 Rate Blood Pressure 160/86 H [Left Brachial artery] Blood Pressure 163/97 H 162/90 H [Right Brachial artery] O2 Saturation 100 100 100 02/26/22 02/26/22 15:44 16:40 Temperature 36.8 C Heart Rate [ 70 71 Brachial] Respiratory 16 Rate Blood Pressure [Left Brachial artery] Blood Pressure 162/88 H 183/87 H [Right Brachial artery] O2 Saturation 97 Oxygen O2 Source Room air I&O (Last 24 Hrs): Intake and Output Totals x24h 02/24/22 02/25/22 02/26/22 23:59 23:59 23:59 Intake Total 3400 3638.334 1430 Output Total 550 733 Balance 2850 2905.334 1430 General: Alert, Other (Not answering questions) HEENT: Atraumatic, EOMI, Mucous membr. moist/pink Neck: Supple, No JVD Neuro: Alert, Non Focal, Other (Moving all extremities spontaneously and purposefully, not speaking to answer a question) Cardiovascular: Regular rate Respiratory: No respiratory distress Abdomen: Soft, No tenderness Extremities: No clubbing, No edema - Results Results: Laboratory Results WBC 11.5 x10^3/uL (4.8-10.8) H 02/25/22 05:28 RBC 4.50 10^6/uL (4.70-6.10) L 02/25/22 05:28 Hgb 14.3 g/dL (14.0-18.0) 02/25/22 05:28 Hct 42.2 % (42.0-52.0) 02/25/22 05:28 MCV 93.8 fL (80.0-94.0) 02/25/22 05:28 MCH 31.8 pg (27.0-31.0) H 02/25/22 05:28 MCHC 33.9 g/dL (32.0-36.0) 02/25/22 05:28 RDW 13.9 % (12.0-15.0) 02/25/22 05:28 Plt Count 239 10^3/uL (130-450) 02/25/22 05:28 MPV 9.8 fL (7.4-11.4) 02/25/22 05:28 Neut # (Auto) 9.4 10^3/uL (1.5-6.6) H 02/25/22 05:28 Lymph # (Auto) 1.0 10^3/uL (1.5-3.5) L 02/25/22 05:28 [place] # (Auto) 1.0 10^3/uL (0.0-1.0) 02/25/22 05:28 Eos # (Auto) 0.0 10^3/uL (0.0-0.7) 02/25/22 05:28 Baso # (Auto) 0.0 10^3/uL (0.0-0.1) 02/25/22 05:28 Absolute Nucleated RBC 0.00 x10^3/uL 02/25/22 05:28 Nucleated RBC % 0.0 /100WBC 02/25/22 05:28 Manual Slide Review Indicated 02/24/22 11:41 RBC Morph Micro Appear 1+ ANISOCYTOSIS (NORMAL) 02/24/22 11:41 Sodium 147 mmol/L (135-145) H 02/26/22 07:51 Potassium 3.4 mmol/L (3.5-5.0) L 02/26/22 07:51 Chloride 116 mmol/L (101-111) H 02/26/22 07:51 Carbon Dioxide 22 mmol/L (21-32) 02/26/22 07:51 Anion Gap 9.0 (6-13) 02/26/22 07:51 BUN 22 mg/dL (6-20) H 02/26/22 07:51 Creatinine 0.6 mg/dL (0.6-1.2) 02/26/22 07:51 Estimated GFR (MDRD) 133 (>89) 02/26/22 07:51 Glucose 154 mg/dL (70-100) H 02/26/22 07:51 Lactic Acid 2.2 mmol/L (0.5-2.2) 02/24/22 11:41 Calcium 8.9 mg/dL (8.5-10.3) 02/26/22 07:51 Phosphorus 2.9 mg/dL (2.5-4.6) 02/25/22 05:28 Magnesium 2.3 mg/dL (1.7-2.8) 02/25/22 05:28 Total Bilirubin 1.8 mg/dL (0.2-1.0) H 02/24/22 11:41 AST 86 IU/L (10-42) H 02/24/22 11:41 ALT 39 IU/L (10-60) 02/24/22 11:41 Alkaline Phosphatase 55 IU/L (42-121) 02/24/22 11:41 Total Creatine Kinase 256 IU/L (22-269) 02/26/22 07:51 Troponin I High Sens 55.8 ng/L (2.3-19.7) H* 02/24/22 13:40 Total Protein 8.5 g/dL (6.7-8.2) H 02/24/22 11:41 Albumin 5.0 g/dL (3.2-5.5) 02/24/22 11:41 Globulin 3.5 g/dL (2.1-4.2) 02/24/22 11:41 Albumin/Globulin Ratio 1.4 (1.0-2.2) 02/24/22 11:41 Lipase 38 U/L (22-51) 02/24/22 11:41 Urine Color DARK YELLOW 02/24/22 14:30 Urine Clarity HAZY (CLEAR) 02/24/22 14:30 Urine pH 6.0 PH (5.0-7.5) 02/24/22 14:30 Ur Specific [place] >=1.030 (1.002-1.030) H 02/24/22 14:30 Urine Protein >=300 mg/dL (NEGATIVE) H 02/24/22 14:30 Urine Glucose (UA) NEGATIVE mg/dL (NEGATIVE) 02/24/22 14:30 Urine Ketones 15 mg/dL (NEGATIVE) H 02/24/22 14:30 Urine Occult Blood LARGE (NEGATIVE) H 02/24/22 14:30 Urine Nitrite NEGATIVE (NEGATIVE) 02/24/22 14:30 Urine Bilirubin NEGATIVE (NEGATIVE) 02/24/22 14:30 Urine Urobilinogen 0.2 (NORMAL) E.U./dL (NORMAL) 02/24/22 14:30 Ur Leukocyte Esterase NEGATIVE (NEGATIVE) 02/24/22 14:30 Urine RBC 0-5 /HPF (0-5) 02/24/22 14:30 Urine WBC 0-3 /HPF (0-3) 02/24/22 14:30 Ur Squamous Epith Cells RARE Squamous (<= Few) 02/24/22 14:30 Urine Bacteria Rare /HPF (None Seen) 02/24/22 14:30 Urine Mucus Few Strands 02/24/22 14:30 Ur Microscopic Review INDICATED 02/24/22 14:30 Urine Culture Comments NOT INDICATED 02/24/22 14:30 Urine Opiates Screen NEGATIVE (NEGATIVE) 02/24/22 14:30 Ur Oxycodone Screen NEGATIVE (NEGATIVE) 02/24/22 14:30 Urine Methadone Screen NEGATIVE (NEGATIVE) 02/24/22 14:30 Ur Propoxyphene Screen NEGATIVE (NEGATIVE) 02/24/22 14:30 Ur Barbiturates Screen NEGATIVE (NEGATIVE) 02/24/22 14:30 Ur Tricyclics Screen POSITIVE (NEGATIVE) H 02/24/22 14:30 Ur Phencyclidine Scrn NEGATIVE (NEGATIVE) 02/24/22 14:30 Ur Amphetamine Screen NEGATIVE (NEGATIVE) 02/24/22 14:30 U Methamphetamines Scrn NEGATIVE (NEGATIVE) 02/24/22 14:30 U Benzodiazepines Scrn NEGATIVE (NEGATIVE) 02/24/22 14:30 Urine Cocaine Screen NEGATIVE (NEGATIVE) 02/24/22 14:30 U Cannabinoids Screen POSITIVE (NEGATIVE) H 02/24/22 14:30 Ethyl Alcohol < 5.0 mg/dL 02/24/22 11:41 SARS-CoV-2 (PCR) NOT DETECTED 02/24/22 13:00 - Procedures Procedures: Procedures INSPECTION OF LOWER INTESTINAL TRACT, ENDO (12/19/15)
[2022-02-26] MEDS ORDERED: GABAPENTIN 300 MG CAPSULE PO PRN (16:50)
[2022-02-26] MEDS ORDERED: CYCLOBENZAPRINE 10 MG TABLET PO PRN (16:50)
--- NOTE | 2022-02-26 16:53 | PROVIDER PROGRESS NOTE ---
Subjective - Prog Note Date Prog Note Date: 02/26/22 Prog Note Time: 16:51 - Subjective Pt reports feeling: Improved Subjective: Much like his last admission. It is taking to 3 days for him to gradually wake up. Become more vocal. He will have 1 word starts of sentences, then stare off into space and then restart that thought process so he can finish his sentence. He has been doing that off and on yesterday and today. By this afternoon he is actually not completing full sentences. He is asking if we can start some of h is medications from home. His was here earlier today and asked to speak to me. She asked to speak to me by 5 PM since she was leaving. When I went to the room at 3:55 PM she had already left for the day. Current Medications - Current Medications Current Medications: Active Medications Atorvastatin Calcium (Atorvastatin 40 Mg Tablet) 40 mg PO QPM NORMA Cyclobenzaprine HCl (Cyclobenzaprine 10 Mg Tablet) 10 mg PO TID PRN PRN Reason: Spasms Gabapentin (Gabapentin 100 Mg Capsule) 300 mg PO TID PRN PRN Reason: PAIN Potassium Chloride/Dextrose/Sod Cl (D5.45ns W/20 Meq Kcl) 1,000 mls @ 100 mls/h r IV .Q10H NORMA Last Admin: 02/26/22 15:57 Dose: 100 mls/hr Labetalol HCl (Labetalol 20 Mg/4 Ml Syringe) 10 mg IVP Q6H PRN PRN Reason: PER PHYSICIAN ORDER Last Admin: 02/26/22 16:38 Dose: 10 mg Non-Formulary Medication (Bupropion Hcl [Bupropion Hcl Sr]) 150 mg PO BID NORMA Non-Formulary Medication (Hydroxyzine Hcl [Hydroxyzine Hcl]) 25 mg PO TID PRN PRN Reason: Anxiety Non-Formulary Medication (Lisinopril [Zestril]) 10 mg PO DAILY NORMA Non-Formulary Medication (Prazosin Hcl [Minipress]) 4 mg PO QPM NORMA Non-Formulary Medication (Sertraline Hcl [Sertraline Hcl]) 200 mg PO DAILY NORMA Ondansetron HCl (Ondansetron 4 Mg/2 Ml Vial) 4 mg IVP Q6HR PRN PRN Reason: Nausea / Vomiting Last Admin: 02/26/22 12:16 Dose: 4 mg Prochlorperazine Edisylate (Prochlorperazine 10 Mg/2 Ml Vial) 10 mg IVP Q6HR PRN PRN Reason: Nausea / Vomiting Last Admin: 02/26/22 15:58 Dose: 10 mg Propranolol HCl (Propranolol Er 60 Mg Capsule) 60 mg PO DAILY [facility] Sodium Chloride (Sodium Chloride Flush 0.9% 10 Ml Syringe) 10 ml IVP PRN PRN PRN Reason: NEEDED PER PROVIDER ORDERS Last Admin: 02/26/22 16:39 Dose: 10 ml Sodium Chloride (Sodium Chloride Flush 0.9% 10 Ml Syringe) 10 ml IVP 0100,09 00,1700 NORMA Last Admin: 02/26/22 15:57 Dose: 10 ml Gabapentin [Neurontin] 300 mg PO TID PRN 06/16/13 Cyclobenzaprine [Flexeril] 10 mg PO TID PRN 12/19/15 Omeprazole [PriLOSEC] 20 mg PO QDAC 12/19/15 Prazosin HCl [Minipress] 4 mg PO QPM 12/19/15 Atorvastatin Calcium 40 mg PO QPM 01/20/17 Propranolol ER [Inderal LA] 60 mg PO DAILY 02/06/21 Aspirin EC [Ecotrin] 81 mg PO DAILY 11/04/21 hydrOXYzine HCL [Hydroxyzine HCl] 25 mg PO TID PRN 11/05/21 Lisinopril [Zestril] 10 mg PO DAILY 02/25/22 Sertraline HCl 200 mg PO DAILY 02/25/22 buPROPion HCL [Bupropion HCl Sr] 150 mg PO BID 02/25/22 Objective - Vital Signs/Intake & Output Vital Signs: Vital Signs x48h Temp Pulse Resp BP Pulse Ox 02/26/22 16:44 71 157/85 H 02/26/22 16:40 71 183/87 H 02/26/22 15:44 36.8 C 70 16 162/88 H 97 02/26/22 11:42 66 18 162/90 H 100 Intake & Output: Intake & Output 02/23/22 02/24/22 02/25/22 02/26/22 23:59 23:59 23:59 23:59 Intake Total 3400 3638.334 1430 Output Total 550 733 Balance 2850 2905.334 1430 - Objective General Appearance: positive: No acute distress, Lethargic (Over the course of the day, the patient was responsive only to voice and pain this morning. Saying 1 words by late morning. By early afternoon he is now more awake, sitting up.) Eyes Bilateral: positive: PERRL, EOMI ENT: positive: No signs of dehydration Neck: positive: No JVD. negative: Stiff neck Respiratory: positive: No respiratory distress. negative: Wheezes, Rales, Rhonchi Cardiovascular: positive: Regular rate & rhythm. negative: Gallop/S4, Friction rub Abdomen: positive: Non-tender, No organomegaly, Nml bowel sounds, No distention Skin: positive: Warm, Dry Extremities: positive: Full ROM, No pedal edema Neurologic/Psychiatric: positive: CN's nml (2-12), Disoriented to place, Disorie nted to time. negative: Motor nml (Not steady. I do not trust him to stand up right now.) - Lab Results Fish Bones: 02/25/22 05:28 02/27/22 06:22 Other Labs: Lab Results x24hrs 02/26/22 02/25/22 Range/Units 07:51 18:00 Sodium 147 H 149 H (135-145) mmol/L Potassium 3.4 L 3.3 L (3.5-5.0) mmol/L Chloride 116 H 113 H (101-111) mmol/L Carbon Dioxide 22 24 (21-32) mmol/L Anion Gap 9.0 12.0 (6-13) BUN 22 H 30 H (6-20) mg/dL Creatinine 0.6 0.7 (0.6-1.2) mg/dL Estimated GFR (MDRD) 133 111 (>89) Glucose 154 H 160 H (70-100) mg/dL Calcium 8.9 9.0 (8.5-10.3) mg/dL Total Creatine Kinase 256 (22-269) IU/L ABX Reporting Has patient been on IV antibiotics over the past 48 hours?: No Assessment/Plan - Problem List (1) Altered mental status Impression: Likely 2/2 to marijuana use Patient was admitted to the hospital in October 2021 for the same reason with the same presentation. He was nearly catatonic then for 3 days at the last hospital stay CT brain was negative in ED Continue IV hydration. With his last admission it took up to 3 days for him to start waking up and completing full sentences. Today we have seen slow improvement. He started the morning with single word utterances and staring into space. By late afternoon he is actually stringing together a few words to make a sentence. asked to see me by 5 PM. I went into the room at 3:55 PM and she was already gone for the day. I have left a note with nursing to come get me tomorrow morning so I can meet with her. (2) Cannabis abuse Conclusion/Plan: He continues to use cannabis heavily per report He was advised at the last discharge date to decrease his use but he responded that he had no plans to do so (3) Hypokalemia Conclusion/Plan: Potassium was low again on labs, likely due to decreased intake He is being monitored, and replaced as necessary. (4) Intractable nausea and vomiting Conclusion/Plan: Likely due to marijuana use. Zofran 4mg IV q6hrs prn ordered A clear liquid diet has been ordered for him to try And he is able to do that today. (5) Dehydration Conclusion/Plan: Likely from nausea and vomiting Creatinine 1.3 with eGFR 55 on admission labs. Creatinine is 0.6 today. Yeste rday 0.7. IV hydration continues with D5+half NS at 100ml/hr. I may be able to stop his IV fluids this afternoon if he is tolerating p.o. and able to eat enough and drink enough. (6) Depression with anxiety Conclusion/Plan: On zoloft and wellbutrin per Hx. He is not wanting to swallow even clear liquids currently. (7) Hypertension Conclusion/Plan: Patient is normally on lisinopril and propanolol He was on IV labetalol as needed because he was not able to swallow and was not alert enough. I have resumed his normal home medications he is now more alert. (8) Hyperlipidemia Conclusion/Plan: Atorvastatin 40mg po qpm is his usual med (9) Rhabdomyolysis Conclusion/Plan: CK was 1841>> 755>>256 today Continue IV hydration with D5+ half NS at 100ml/hr Qualifiers: Qualified Code(s): R41.82 - Altered mental status, unspecified
[2022-02-26] MEDS ORDERED: hydrOXYzine PAMOATE 25 MG CAPSULE PO PRN (17:32)
[2022-02-26] MEDS: PRAZOSIN 1 MG CAPSULE PO SCH (21:18)
[2022-02-26] MEDS: buPROPion SR 150 MG TABLET PO SCH (21:42)
[2022-02-26] MEDS: ATORVASTATIN 40 MG TABLET PO SCH (21:42)
[2022-02-27] MEDS: D5.45NS W/20 MEQ KCL 1,000 ML IV SCH ×3 (01:38→22:04)
[2022-02-27 06:50] LABS: CALCIUM 8.7 mg/dL (8.5-10.3); CREATININE 0.6 mg/dL (0.6-1.2); POTASSIUM 3.2 mmol/L (3.5-5.0)
[2022-02-27] MEDS: POTASSIUM CHLORIDE 20 MEQ/15 ML UDC PO SCH (07:41)
[2022-02-27] MEDS: lisinopriL 5 MG TABLET PO SCH (08:28)
[2022-02-27] MEDS: PROPRANOLOL ER 60 MG CAPSULE PO SCH (08:28)
[2022-02-27] MEDS: SERTRALINE 50 MG TABLET PO SCH (08:28)
[2022-02-27] MEDS: buPROPion SR 150 MG TABLET PO SCH ×2 (08:28→21:04)
[2022-02-27] MEDS: SODIUM CHLORIDE FLUSH 0.9% 10 ML SYRINGE IVP SCH ×3 (08:28→23:41)
[2022-02-27] MEDS ORDERED: MAG HYDROX/AL HYDROX/SIMETH 30 ML UDC PO PRN (12:45)
[2022-02-27] MEDS: PANTOPRAZOLE 40 MG TABLET PO SCH (13:17)
--- NOTE | 2022-02-27 18:39 | PROVIDER PROGRESS NOTE ---
Subjective - Prog Note Date Prog Note Date: 02/27/22 Prog Note Time: 18:35 - Subjective Pt reports feeling: Improved Subjective: This morning he is awake, alert, conversant. Mentally he is back to baseline according to the . Physically she is worried about his weakness, deconditioning and his ability to get up the stairs in their home. Current Medications - Current Medications Current Medications: Active Medications Al Hydroxide/Mg Hydroxide (Mag Hydrox/Al Hydrox/Simeth 30 Ml Udc) 30 ml PO Q4HR PRN PRN Reason: INDIGESTION Last Admin: 02/27/22 13:17 Dose: 30 ml Atorvastatin Calcium (Atorvastatin 40 Mg Tablet) 40 mg PO QPM [facility] Last Admin: 02/26/22 21:42 Dose: 40 mg Bupropion HCl (Bupropion Sr 150 Mg Tablet) 150 mg PO BID [facility] Last Admin: 02/27/22 08:28 Dose: 150 mg Cyclobenzaprine HCl (Cyclobenzaprine 10 Mg Tablet) 10 mg PO TID PRN PRN Reason: Spasms Gabapentin (Gabapentin 300 Mg Capsule) 300 mg PO TID PRN PRN Reason: PAIN Last Admin: 02/26/22 17:41 Dose: 300 mg Hydroxyzine Pamoate (Hydroxyzine Pamoate 25 Mg Capsule) 25 mg PO TID PRN PRN Reason: Anxiety Potassium Chloride/Dextrose/Sod Cl (D5.45ns W/20 Meq Kcl) 1,000 mls @ 100 mls/hr IV .Q10H [facility] Last Admin: 02/27/22 10:48 Dose: 100 mls/hr Labetalol HCl (Labetalol 20 Mg/4 Ml Syringe) 10 mg IVP Q6H PRN PRN Reason: PER PHYSICIAN ORDER Last Admin: 02/26/22 16:38 Dose: 10 mg Lisinopril (Lisinopril 5 Mg Tablet) 10 mg PO DAILY [facility] Last Admin: 02/27/22 08:28 Dose: 10 mg Ondansetron HCl (Ondansetron 4 Mg/2 Ml Vial) 4 mg IVP Q6HR PRN PRN Reason: Nausea / Vomiting Last Admin: 02/26/22 21:16 Dose: 4 mg Pantoprazole Sodium (Pantoprazole 40 Mg Tablet) 40 mg PO QDAC [facility] Last Admin: 02/27/22 13:17 Dose: 40 mg Potassium Chloride (Potassium Chloride 20 Meq/15 Ml Udc) 20 meq PO DAILYWM [facility] Last Admin: 02/27/22 07:41 Dose: 20 meq Prazosin HCl (Prazosin 1 Mg Capsule) 4 mg PO QPM [facility] Last Admin: 02/26/22 21:18 Dose: 4 mg Prochlorperazine Edisylate (Prochlorperazine 10 Mg/2 Ml Vial) 10 mg IVP Q6HR PRN PRN Reason: Nausea / Vomiting Last Admin: 02/26/22 15:58 Dose: 10 mg Propranolol HCl (Propranolol Er 60 Mg Capsule) 60 mg PO DAILY [facility] Last Admin: 02/27/22 08:28 Dose: 60 mg Sertraline HCl (Sertraline 50 Mg Tablet) 200 mg PO DAILY [facility] Last Admin: 02/27/22 08:28 Dose: 200 mg Sodium Chloride (Sodium Chloride Flush 0.9% 10 Ml Syringe) 10 ml IVP PRN PRN PRN Reason: NEEDED PER PROVIDER ORDERS Last Admin: 02/26/22 21:18 Dose: 10 ml Sodium Chloride (Sodium Chloride Flush 0.9% 10 Ml Syringe) 10 ml IVP 0100,0900,1700 [facility] Last Admin: 02/27/22 17:25 Dose: 10 ml Gabapentin [Neurontin] 300 mg PO TID PRN 06/16/13 Cyclobenzaprine [Flexeril] 10 mg PO TID PRN 12/19/15 Omeprazole [PriLOSEC] 20 mg PO QDAC 12/19/15 Prazosin HCl [Minipress] 4 mg PO QPM 12/19/15 Atorvastatin Calcium 40 mg PO QPM 01/20/17 Propranolol ER [Inderal LA] 60 mg PO DAILY 02/06/21 Aspirin EC [Ecotrin] 81 mg PO DAILY 11/04/21 hydrOXYzine HCL [Hydroxyzine HCl] 25 mg PO TID PRN 11/05/21 Lisinopril [Zestril] 10 mg PO DAILY 02/25/22 Sertraline HCl 200 mg PO DAILY 02/25/22 buPROPion HCL [Bupropion HCl Sr] 150 mg PO BID 02/25/22 Objective - Vital Signs/Intake & Output Reviewed Vital Signs: Yes Vital Signs: Vital Signs x48h Temp Pulse Resp BP BP Pulse Ox 02/27/22 15:41 36.8 C 59 L 16 124/63 100 02/27/22 11:44 64 19 149/99 H 100 Intake & Output: Intake & Output 02/24/22 02/25/22 02/26/22 02/27/22 23:59 23:59 23:59 23:59 Intake Total 3400 3638.334 2976.667 1428.334 Output Total 550 733 300 250 Balance 2850 2905.334 2676.667 1178.334 - Objective General Appearance: positive: No acute distress, Alert, Other (Cachectic middle- aged, disheveled male.) Eyes Bilateral: positive: PERRL ENT: positive: No signs of dehydration Neck: positive: No JVD. negative: Stiff neck Respiratory: positive: No respiratory distress. negative: Wheezes, Rales, Rhonchi Cardiovascular: positive: Regular rate & rhythm Abdomen: positive: Non-tender, No organomegaly, Nml bowel sounds, No distention Skin: positive: Warm, Dry Extremities: positive: Full ROM, No pedal edema Neurologic/Psychiatric: positive: Oriented x3, CN's nml (2-12), Weakness. negative: Motor nml - Lab Results Fish Bones: 02/25/22 05:28 02/27/22 06:22 Other Labs: Lab Results x24hrs 02/27/22 Range/Units 06:22 Sodium 143 (135-145) mmol/L Potassium 3.2 L (3.5-5.0) mmol/L Chloride 112 H (101-111) mmol/L Carbon Dioxide 25 (21-32) mmol/L Anion Gap 6.0 (6-13) BUN 16 (6-20) mg/dL Creatinine 0.6 (0.6-1.2) mg/dL Estimated GFR (MDRD) 133 (>89) Glucose 164 H (70-100) mg/dL Calcium 8.7 (8.5-10.3) mg/dL Total Creatine Kinase 70 (22-269) IU/L Assessment/Plan - Problem List (1) Altered mental status Impression: Likely 2/2 to marijuana use Patient was admitted to the hospital in October 2021 for the same reason with the same presentation. He was nearly catatonic then for 3 days at the last hospital stay CT brain was negative in ED Continue IV hydration. With his last admission it took up to 3 days for him to start waking up and completing full sentences. Yesterday we saw slow improvement. He started the morning with single word utterances and staring into space. By late afternoon he is actually stringing together a few words to make a sentence. asked to see me by 5 PM. I went into the room at 3:55 PM and she was already gone for the day. This morning his is at the bedside when I rounded. He is back to baseline. Speech is lucid. He really does demonstrate lack of insight as to how his behavior has gotten to where he is. He is insistent that he is not abusing alcohol. I have repeated Jules told him that alcohol is not the problem here, it is his overuse of cannabis. He insinuates that his is the one that is been giving him the cannabis and if it was not for her he be fine. We also discussed that he has many options through the [facility]. He is 100% service-connected. While he does see the [facility] he does not see any mental health provider on a regular basis. Assessment/plan Probable discharge tomorrow morning since his baseline mental status is improving. We will focus on getting him stronger and being seen by PT and OT to make sure he is safe to go up and down stairs in his house. Long conversation about his [facility] benefits. I told him that at this rate, if his and daughter cannot take care of him, he may need placement in a veterans home. Social work will be working with he and his to give him the list of homes. She will also call the [facility] and make an appointment for him with his primary care provider. PT.OT for today. (2) Cannabis abuse Conclusion/Plan: He continues to use cannabis heavily per report He was advised at the last discharge date to decrease his use but he responded that he had no plans to do so. Today I reiterated that he needs to stop smoking pot completely. He did not say he was going to continue but he also did not say he agreed with me. Very silent on that issue. (3) Hypokalemia Conclusion/Plan: Potassium was low again on labs, likely due to decreased intake He is being monitored, and replaced as necessary. Received po again today. (4) Intractable nausea and vomiting resolved Conclusion/Plan: Likely due to marijuana use. Zofran 4mg IV q6hrs prn ordered Now on mechanical soft diet and tolerating that. Would like protonix for GERD and that was ordered. (5) Dehydration resolved Conclusion/Plan: Likely from nausea and vomiting Creatinine 1.3 with eGFR 55 on admission labs. Creatinine has been 0.6 for 2 days. Now that he is awake and alert. Eating and drinking. I will stop maintenance IV fluids. (6) Depression with anxiety Conclusion/Plan: On zoloft and wellbutrin per Hx. He is not wanting to swallow even clear liquids currently. (7) Hypertension Conclusion/Plan: Patient is normally on lisinopril and propanolol He was on IV labetalol as needed because he was not able to swallow and was not alert enough. I have resumed his normal home medications he is now more alert. (8) Hyperlipidemia Conclusion/Plan: Atorvastatin 40mg po qpm is his usual med (9) Rhabdomyolysis Conclusion/Plan: CK was 1841>> 755>>256>>70 today Stop IVF. Qualifiers: Qualified Code(s): R41.82 - Altered mental status, unspecified
[2022-02-27] MEDS: PRAZOSIN 1 MG CAPSULE PO SCH (21:05)
[2022-02-27] MEDS: ATORVASTATIN 40 MG TABLET PO SCH (21:05)
[2022-02-28] MEDS: PANTOPRAZOLE 40 MG TABLET PO SCH (05:27)
[2022-02-28] MEDS: POTASSIUM CHLORIDE 20 MEQ/15 ML UDC PO SCH (07:29)
[2022-02-28] MEDS: D5.45NS W/20 MEQ KCL 1,000 ML IV SCH (07:29)
[2022-02-28 07:34] VITALS: BP 152/76
[2022-02-28] MEDS: SERTRALINE 50 MG TABLET PO SCH (08:07)
[2022-02-28] MEDS: buPROPion SR 150 MG TABLET PO SCH (08:07)
[2022-02-28] MEDS: lisinopriL 5 MG TABLET PO SCH (08:08)
[2022-02-28] MEDS: SODIUM CHLORIDE FLUSH 0.9% 10 ML SYRINGE IVP SCH (08:08)
--- NOTE | 2022-02-28 08:09 | DISCHARGE SUMMARY ---
Discharge Summary Admit Date: 02/24/22 Discharge Date: 02/28/22 Discharging Provider: Cesia Dueñas MD Primary Care Provider: [facility] Code Status: Attempt Resuscitation Condition at Discharge: Fair Discharge Disposition: 01 Home, Self Care - DIAGNOSES Discharge Diagnoses with Status of Each Condition: 1. Cannabis intoxication with complication 2. Altered mental status 3. Cannabis abuse 4. Hypokalemia 5. Intractable nausea and vomiting 6. Dehydration 7. Anxiety with depression 8. Hypertension 9. Hyperlipidemia 10. Rhabdomyolysis - HPI History of Present Illness: "Patient is a 71-year-old male presenting for evaluation of altered mental status. Per EMS the last known normal was on Friday. Family called today because patient was having not tolerating p.o. intake and was "spitting up blood". Patient has a history of alcohol and cannabis abuse. He had a recent admission in October with similar presentation and found to have severe hypoka lemia. His mentation did improve over the course of 2 days.History is very limited as patient is not able to provide any and I am unable to reach family.No reports of trauma." The HPI above was obtained from the ED providers H&P because the patient is currently altered and unable to provide a history. At bedside he is awake but somnolent. He does not able to give any appropriate or significant response to questions asked. He does not seem to be in any distress. - Past Medical History Cardiovascular: reports: Hypertension, High cholesterol Respiratory: reports: None Neuro: reports: CVA, Tremors Endocrine/Autoimmune: reports: None GI: reports: GERD, Other : reports: None HEENT: reports: None Psych: reports: Depression, Anxiety, Post traumatic stress disorder Musculoskeletal: reports: Osteoarthritis, Other Derm: reports: Other MRSA Hx?: No - Past Surgical History General: reports: Bowel surgery (Partial colectomy due to incarcerated bowel.) Ortho: reports: Other - CONSULTS | PROCEDURES Procedures: 1. Head CT with atrophy, chronic ischemic changes, no intracranial hemorrhage or mass-effect. 2. Chest x-ray without acute cardiopulmonary findings 3. Abdomen pelvis CT with no acute CT findings in the abdomen pelvis. Multilevel degenerative disc disease and arthropathy lower spine associated with severe central spinal stenosis. 4. Blood cultures without growth after 5 days. - HOSPITAL COURSE Hospital Course: Treatment plan consisted of hydrating this gentleman until he was awake enough to eat and drink. He gradually recovered consciousness. Went from no sentences to 1 word starts of sentences and then staring blankly into space, followed by completion of a sentence and then followed by complete lucid conversations. He states that he is not abusing alcohol. That the pot he takes is only given to him by his . And as far as he is concerned he is not overdoing it. A long conversation ensued with regards to cannabis abuse. His addiction to it. While it may not be physical it is definitely psychological and linked to his PTSD and anger issues. Social work and I gave he and his a list of opportunities. This included returning to [facility] and [facility] He is 100% service-connected and actually has quite a bit that he can take advantage of. Eventually, as stated by his who has Parkinson's, she will not be able to take care of him. The talk then ensued about long-term placement including [facility]. Surprisingly enough, she qualifies for housing herself. She is surprised about that because she has Parkinson's and wondered what the future would bring for her. At the time of discharge this gentleman was alert, talkative, appropriate. Very pleasant gentleman. Temperature is 36.4. Heart rate 68. Blood pressure 152/76. Respirations 17. 100% on room air. He weighs 74.5 kg and is 6 foot 6 inches tall and appears slightly gaunt, underweight. Neck is supple. Lungs are clear. Regular rate and rhythm. Abdomen is soft, nontender. He is independent with eating. On the day of discharge 800% of his breakfast but it was not documented by nursing. Last BM was February 28. Extremities are thin, decreased muscle mass, no edema. Greater than 30 minutes was spent coordinating discharge, discussing with , and discussing with patient - ALLERGIES Allergies/Adverse Reactions: Allergies Allergy/AdvReac Type Severity Reaction Status Date / Time bee venom protein (honey bee) Allergy Unknown Verified 02/24/22 11:23 - MEDICATIONS Home Medications: Ambulatory Orders Medication Instructions Recorded Confirmed Gabapentin [Neurontin] 300 mg PO TID PRN 06/16/13 02/25/22 Cyclobenzaprine [Flexeril] 10 mg PO TID PRN 12/19/15 02/25/22 Omeprazole [PriLOSEC] 20 mg PO QDAC 12/19/15 02/25/22 Prazosin HCl [Minipress] 4 mg PO QPM 12/19/15 02/25/22 Atorvastatin Calcium 40 mg PO QPM 01/20/17 02/25/22 Propranolol ER [Inderal LA] 60 mg PO DAILY 02/06/21 02/25/22 Aspirin EC [Ecotrin] 81 mg PO DAILY 11/04/21 02/25/22 hydrOXYzine HCL [Hydroxyzine HCl] 25 mg PO TID PRN 11/05/21 02/25/22 Lisinopril [Zestril] 10 mg PO DAILY 02/25/22 02/25/22 Sertraline HCl 200 mg PO DAILY 02/25/22 02/25/22 buPROPion HCL [Bupropion HCl Sr] 150 mg PO BID 02/25/22 02/25/22 - LABS Result Diagrams: 02/25/22 05:28 02/27/22 06:22
[2022-02-28] MEDS: PROPRANOLOL ER 60 MG CAPSULE PO SCH (08:11)
--- NOTE | 2022-02-28 08:12 | Discharge Plan ---
Discharge Plan Problem Reviewed?: Yes Disposition: Home, Self Care Condition: Fair Diet: Low Sodium Activity Restrictions: Activity as Tolerated Shower Restrictions: No Driving Restrictions: No Health Concerns: You presented to our hospital because of severe confusion, sleepiness, and unable to get out of bed to eat, drink, or even go to the bathroom. You have a history of nausea and vomiting and your family stated that you were "spitting up blood" the day of admission. You have a history of alcohol abuse and alcoholism. You also have a history of cannabis use to the point of severe catatonia. You were admitted in October for the same reasons you were admitted today. On evaluation we did not find anything that indicated you are having a stroke, heart attack or that you were having severe infection. These are the most common reasons patients present with confusion and sleepiness. We find, once again, that most likely your lethargy and catatonia were due to overuse of cannabis. There is no special treatment or medications we gave you. We essentially gave you intravenous hydration because you are not able to eat or drink on your own. It took you to 3 days to start waking up and be lucid enough to complete sentences and to feed yourself. Your has indicated that she has Parkinson's disease and is worried about the future not only for herself but her ability to be able to take care of you. You have also stated that your daughter, a tiago, will not be taking care of you. Plan of Treatment: 1. You must completely stop using any forms of marijuana 2. Please seek help at the [facility] in [place]. You are 100% service- connected . Thank you for your service sir. Please seek help with regards to substance abuse, and mental health issues with PTSD, anger management. There are other medications and other ways to handle this without becoming catatonic with marijuana use. We are grateful that you are not abusing alcohol. 3. Start considering long-term placement options for yourself. As you continue to get older and deteriorate physically, your family will not be able to take care of you. Is 100% service-connected you have many options that other Americans do not. There are [facility]. As 100% service-connected , these homes would be covered under your benefits. The waiting list to get into 1 of these facilities is quite long. So judiciously consider when you might want to place herself on one of the waiting list knowing that it can take up to a year to get into them. 4. Also know that your , as you are dependent, may be able to qualify for going into a veterans home as well if she gets disabled from her Parkinson's disease. 5. Physical and Occupational Therapy saw you and evaluated you. While you are independent and only need standby assist, you have poor judgment for risk with impulsive behavior and poor motor skills. You are at high risk for falls. They recommend that you get home health occupational therapy and physical therapy. I will be ordering that at discharge. Care Goals: To remain independently at home for as long as possible. To not come back to the hospital because you are intoxicated with marijuana. And to get help for your mental health disorder. Assessment: is at bedside and understands care goals and agrees with him. She is anxious about taking him home but states that there will be changes made and that she will no longer smoke pot as well. Patient continues to deny there is a problem with his marijuana use. No Smoking: If you smoke, Please STOP! Call for help. Follow-up with: Joanne Fan ARNP [Provider Admit Priv/Credential] -
== END 2022-02-28 11:02 | disposition home or self-care (01) | DRG 897 ==
LOC: EDUNIT# → ED 11:17 → MS2 18:07
PROVIDERS: ADMIT Internal Medicine; ATTEND Specialist
DX: F12.229 Cannabis dependence with intoxication, unspecified (principal); M62.82 Rhabdomyolysis; E87.0 Hyperosmolality and hypernatremia; F12.10 Cannabis abuse, uncomplicated; R41.82 Altered mental status, unspecified; E87.6 Hypokalemia; D72.829 Elevated white blood cell count, unspecified; Z20.822 Contact with and (suspected) exposure to COVID-19; R00.0 Tachycardia, unspecified; R53.1 Weakness; R11.2 Nausea with vomiting, unspecified; F32.A Depression, unspecified; F41.9 Anxiety disorder, unspecified; E86.0 Dehydration; F41.8 Other specified anxiety disorders; I10 Essential (primary) hypertension; E78.5 Hyperlipidemia, unspecified; F43.10 Post-traumatic stress disorder, unspecified; K21.9 Gastro-esophageal reflux disease without esophagitis; Z90.49 Acquired absence of other specified parts of digestive tract
CPT/HCPCS: 36415; 51798; 70450; 71045; 74176; 80048; 80053; 80306; 81001; 82550; 83605; 83690; 83735; 84100; 84484; 85025; 87040; 87635; 93005; 96361; 96365; 96366; 96375; 97162; 97165; 99285; A9270; G0480; J2060; 80320; 81003; 87086

== ENCOUNTER 2022-09-15 20:48 | Outpatient (CLI) | payer MEDICARE, OTHER | END 2022-09-15 20:49 | disposition critical access hospital (66) | LOC: EMS 20:48 | DX: R11.2 Nausea with vomiting, unspecified (principal); R41.0 Disorientation, unspecified; R47.89 Other speech disturbances; R26.81 Unsteadiness on feet; R00.0 Tachycardia, unspecified | CPT/HCPCS: A0425; A0427 ==

== ENCOUNTER 2022-09-15 20:57 | Inpatient (IN) | payer MEDICARE, OTHER ==
[2022-09-15 21:21] LABS: BASOPHILS % (AUTO) 0.2 %; HGB - HEMOGLOBIN 17.4 g/dL (14.0-18.0); LYMPHOCYTES % (AUTO) 11.7 %; MEAN CORPUSCULAR HGB CONC 34.1 g/dL (32.0-36.0); MEAN CORPUSCULAR VOLUME 90.7 fL (80.0-94.0); MEAN PLATELET VOLUME 9.9 fL (7.4-11.4); MONOCYTES % (AUTO) 10.8 %; NEUTROPHILS % (AUTO) 76.7 %; PLT - PLATELET COUNT 364 10^3/uL (130-450); RED BLOOD COUNT 5.62 10^6/uL (4.70-6.10); WHITE BLOOD COUNT 21.7 x10^3/uL (4.8-10.8)
[2022-09-15 21:22] LABS: ABNORMAL LYMPHS % (MANUAL) 0 %; BAND NEUTROPHILS % (MANUAL) 0 %
[2022-09-15 21:29] LABS: INR 1.1 (0.8-1.2); PT - PROTHROMBIN TIME 12.3 secs (9.9-12.6)
--- NOTE | 2022-09-15 21:30 | ED Physician Documentation ---
History of Present Illness - Stated complaint Stated Complaint: AMS - Chief complaint Chief Complaint: Neuro - History obtained from History obtained from: EMS - Additonal information Additional information: The patient is brought to the emergency department by EMS for chief complaint of altered mental status. According to the medics, who spoke with the patient's family, the patient began vomiting about 4 days ago. They have been trying to give him his normal medications, but he has not been able to really hold them down. They noticed this morning that the patient seemed to be confused and less responsive than usual. He has not really wanted to take anything by mouth. He has not had any fevers at home. No complaints of pain. The patient is not able to offer any information at this time. The patient's family told medics that "He goes down like this about every 6 months". They are not aware of him taking any extra of his medications, and he has not as far as they know been able to hold them down anyway. Review of patient's records reveals the patient has been here for similar issues previously, and this has been thought in part to be due to heavy cannabis use. However, on the patient's last admission, he was also found to be fairly severely hypokalemic. The patient also has a history of alcohol abuse. He has been admitted twice in the last year for altered mental status, triggered both times by an initial vomiting illness. Review of Systems Unable to obtain: AMS, Confused PD PAST MEDICAL HISTORY - Past Medical History Past Medical History: Yes Cardiovascular: Hypertension, High cholesterol Respiratory: None Neuro: CVA, Tremors Endocrine/Autoimmune: None GI: GERD, Other : None HEENT: None Psych: Depression, Anxiety, Post traumatic stress disorder Musculoskeletal: Osteoarthritis, Other Derm: Other - Past Surgical History Past Surgical History: Yes General: Bowel surgery Ortho: Other - Present Medications Home Medications: Ambulatory Orders Medication Instructions Recorded Confirmed Prazosin HCl [Minipress] 4 mg PO QPM 12/19/15 09/15/22 Atorvastatin Calcium 40 mg PO QPM 01/20/17 09/15/22 Propranolol ER [Inderal LA] 60 mg PO DAILY 02/06/21 09/15/22 Aspirin EC [Ecotrin] 81 mg PO DAILY 11/04/21 09/15/22 Lisinopril [Zestril] 10 mg PO DAILY 02/25/22 09/15/22 buPROPion HCL [Bupropion HCl Sr] 150 mg PO BID 02/25/22 09/15/22 Cholecalciferol (Vitamin D3) 5,000 unit PO DAILY 09/16/22 09/16/22 [Vitamin D3] Famotidine [Pepcid] 20 mg PO DAILY 09/16/22 09/16/22 Multivit-Minerals/Folic Acid 200 mcg PO DAILY 09/16/22 09/16/22 [Multivitamin Gummies] Gabapentin [Neurontin] 300 mg PO TID #0 cap 09/18/22 Potassium Chloride [Micro-K] 10 meq PO DAILY #30 cap 09/18/22 Sertraline HCl 100 mg PO DAILY #30 tab 09/18/22 Sertraline [Zoloft] 50 mg PO QPM #30 tab 09/18/22 - Allergies Allergies/Adverse Reactions: Allergies Allergy/AdvReac Type Severity Reaction Status Date / Time bee venom protein (honey bee) Allergy Unknown Verified 09/15/22 21:11 - Social History Does the pt smoke?: No Smoking Status: Never smoker Does the pt drink ETOH?: No Does the pt have substance abuse?: Yes Substance Use and Type: Marijuana - Immunizations Immunizations are current?: Yes Immunizations: TDAP >10years/unknown - POLST Patient has POLST: No POLST Status: Full Code PD ED PE NORMAL - Vitals Vital signs reviewed: Yes - General General: No acute distress, Well developed/nourished, Other (The patient is awake and does make eye contact when his name is said. However, he is not able to make any sort of coherent answer to any questions, and does not seem to understand what is being asked.) - HEENT HEENT: Atraumatic, PERRL, EOMI, Moist mucous membranes - Neck Neck: Supple, no meningeal sign - Cardiac Cardiac: RRR, No murmur, Strong equal pulses - Respiratory Respiratory: No respiratory distress, Clear bilaterally - Abdomen Abdomen: Soft, Non tender, Non distended - Derm Derm: Normal color, Warm and dry, No rash - Extremities Extremities: No deformity, No edema - Neuro Neuro: Other (Appears delirious. No gross deficits otherwise. The patient is not able to comply with the NIH stroke scale exam.) - Psych Psych: Normal mood, Normal affect Results - Vitals Vitals: Oxygen O2 Source Room air - EKG (time done) 2141 Rate: Rate (enter#) (100) Rhythm: NSR Weir: Normal Intervals: Normal WI QRS: Normal Ischemia: Normal ST segments, Non specific changes Compare to prior EKG: Old EKG unavailable Computer interpretation: Agree with computer - Labs Labs: Laboratory Tests 09/15/22 09/15/22 09/15/22 21:15 21:15 21:15 WBC 21.7 H RBC 5.62 Hgb 17.4 Hct 51.0 MCV 90.7 MCH 31.0 MCHC 34.1 RDW 14.0 Plt Count 364 MPV 9.9 Neut # (Auto) Not Reportable Lymph # (Auto) Not Reportable [place] # (Auto) Not Reportable Eos # (Auto) Not Reportable Baso # (Auto) Not Reportable Absolute Nucleated RBC Not Reportable Total Counted 100 Band Neuts % (Manual) 0 Abnorm Lymph % (Manual) 0 Nucleated RBC % Not Reportable Neutrophils # (Manual) 16.5 H Lymphocytes # (Manual) 2.6 Monocytes # (Manual) 2.4 H Eosinophils # (Manual) 0.2 Basophils # (Manual) 0.0 Differential Comment MANUAL DIFFERENTIAL Platelet Estimate NORMAL (130-450,000) Platelet Morphology NORMAL APPEARANCE RBC Morph Micro Appear NORMAL APPEARANCE PT INR Sodium 150 H Potassium 2.6 L Chloride 105 Carbon Dioxide 17 L Anion Gap 28.0 H BUN 74 H Creatinine 1.6 H Estimated GFR (MDRD) 43 L Glucose 158 H Lactic Acid 2.5 H Calcium 10.2 Magnesium Total Bilirubin 2.3 H AST 87 H ALT 42 Alkaline Phosphatase 59 Total Protein 8.2 Albumin 5.0 Globulin 3.2 Albumin/Globulin Ratio 1.6 Lipase 45 TSH Urine Color Urine Clarity Urine pH Ur Specific [place] Urine Protein Urine Glucose (UA) Urine Ketones Urine Occult Blood Urine Nitrite Urine Bilirubin Urine Urobilinogen Ur Leukocyte Esterase Urine RBC Urine WBC Ur Squamous Epith Cells Urine Bacteria Urine Casts Ur Microscopic Review Urine Culture Comments Nasal Adenovirus (PCR) Nasal B. parapertussis DNA (PCR) Nasal Coronavir 229E PCR Nasal Coronavir HKU1 PCR Nasal Coronavir NL63 PCR Nasal Coronavir OC43 PCR Nasal Enterovir/Rhinovir PCR Nasal Influenza B PCR Nasal Influenza A PCR Nasal Parainfluen 1 PCR Nasal Parainfluen 2 PCR Nasal Parainfluen 3 PCR Nasal Parainfluen 4 PCR Nasal RSV (PCR) Nasal B.pertussis DNA PCR Nasal C.pneumoniae (PCR) Colt Human Metapneumo PCR Nasal M.pneumoniae (PCR) Nasal SARS-CoV-2 (PCR) Urine Opiates Screen Ur Oxycodone Screen Urine Methadone Screen Ur Propoxyphene Screen Ur Barbiturates Screen Ur Tricyclics Screen Ur Phencyclidine Scrn Ur Amphetamine Screen U Methamphetamines Scrn U Benzodiazepines Scrn Urine Cocaine Screen U Cannabinoids Screen Ethyl Alcohol < 5.0 09/15/22 09/15/22 09/16/22 21:15 21:23 01:50 WBC RBC Hgb Hct MCV MCH MCHC RDW Plt Count MPV Neut # (Auto) Lymph # (Auto) [place] # (Auto) Eos # (Auto) Baso # (Auto) Absolute Nucleated RBC Total Counted Band Neuts % (Manual) Abnorm Lymph % (Manual) Nucleated RBC % Neutrophils # (Manual) Lymphocytes # (Manual) Monocytes # (Manual) Eosinophils # (Manual) Basophils # (Manual) Differential Comment Platelet Estimate Platelet Morphology RBC Morph Micro Appear PT 12.3 INR 1.1 Sodium Potassium Chloride Carbon Dioxide Anion Gap BUN Creatinine Estimated GFR (MDRD) Glucose Lactic Acid Calcium Magnesium Total Bilirubin AST ALT Alkaline Phosphatase Total Protein Albumin Globulin Albumin/Globulin Ratio Lipase TSH Urine Color DARK YELLOW Urine Clarity CLEAR Urine pH 6.0 Ur Specific [place] >=1.030 H Urine Protein 100 H Urine Glucose (UA) NEGATIVE Urine Ketones 15 H Urine Occult Blood LARGE H Urine Nitrite NEGATIVE Urine Bilirubin NEGATIVE Urine Urobilinogen 0.2 (NORMAL) Ur Leukocyte Esterase NEGATIVE Urine RBC 0-5 Urine WBC 0-3 Ur Squamous Epith Cells FEW Squamous Urine Bacteria Rare Urine Casts 6-10 Hyaline Casts Ur Microscopic Review INDICATED Urine Culture Comments NOT INDICATED Nasal Adenovirus (PCR) NOT DETECTED Nasal B. parapertussis DNA (PCR) NOT DETECTED Nasal Coronavir 229E PCR NOT DETECTED Nasal Coronavir HKU1 PCR NOT DETECTED Nasal Coronavir NL63 PCR NOT DETECTED Nasal Coronavir OC43 PCR NOT DETECTED Nasal Enterovir/Rhinovir PCR NOT DETECTED Nasal Influenza B PCR NOT DETECTED Nasal Influenza A PCR NOT DETECTED Nasal Parainfluen 1 PCR NOT DETECTED Nasal Parainfluen 2 PCR NOT DETECTED Nasal Parainfluen 3 PCR NOT DETECTED Nasal Parainfluen 4 PCR NOT DETECTED Nasal RSV (PCR) NOT DETECTED Nasal B.pertussis DNA PCR NOT DETECTED Nasal C.pneumoniae (PCR) NOT DETECTED Colt Human Metapneumo PCR NOT DETECTED Nasal M.pneumoniae (PCR) NOT DETECTED Nasal SARS-CoV-2 (PCR) NOT DETECTED Urine Opiates Screen NEGATIVE Ur Oxycodone Screen NEGATIVE Urine Methadone Screen NEGATIVE Ur Propoxyphene Screen NEGATIVE Ur Barbiturates Screen POSITIVE H Ur Tricyclics Screen POSITIVE H Ur Phencyclidine Scrn NEGATIVE Ur Amphetamine Screen NEGATIVE U Methamphetamines Scrn NEGATIVE U Benzodiazepines Scrn NEGATIVE Urine Cocaine Screen NEGATIVE U Cannabinoids Screen POSITIVE H Ethyl Alcohol 09/16/22 09/16/22 09/16/22 06:09 06:15 06:15 WBC 13.4 H RBC 4.34 L Hgb 13.5 L Hct 40.8 L MCV 94.0 MCH 31.1 H MCHC 33.1 RDW 14.2 Plt Count 217 MPV 9.5 Neut # (Auto) 10.2 H Lymph # (Auto) 1.7 [place] # (Auto) 1.4 H Eos # (Auto) 0.0 Baso # (Auto) 0.0 Absolute Nucleated RBC 0.00 Total Counted Band Neuts % (Manual) Abnorm Lymph % (Manual) Nucleated RBC % 0.0 Neutrophils # (Manual) Lymphocytes # (Manual) Monocytes # (Manual) Eosinophils # (Manual) Basophils # (Manual) Differential Comment Platelet Estimate Platelet Morphology RBC Morph Micro Appear PT INR Sodium 155 H* Potassium 2.9 L Chloride 118 H Carbon Dioxide 22 Anion Gap 15.0 H BUN 54 H Creatinine 1.0 Estimated GFR (MDRD) 74 L Glucose 135 H Lactic Acid 1.4 Calcium 8.4 L Magnesium Total Bilirubin 1.4 H AST 70 H ALT 38 Alkaline Phosphatase 43 Total Protein 6.2 L Albumin 3.5 Globulin 2.7 Albumin/Globulin Ratio 1.3 Lipase 39 TSH Urine Color Urine Clarity Urine pH Ur Specific [place] Urine Protein Urine Glucose (UA) Urine Ketones Urine Occult Blood Urine Nitrite Urine Bilirubin Urine Urobilinogen Ur Leukocyte Esterase Urine RBC Urine WBC Ur Squamous Epith Cells Urine Bacteria Urine Casts Ur Microscopic Review Urine Culture Comments Nasal Adenovirus (PCR) Nasal B. parapertussis DNA (PCR) Nasal Coronavir 229E PCR Nasal Coronavir HKU1 PCR Nasal Coronavir NL63 PCR Nasal Coronavir OC43 PCR Nasal Enterovir/Rhinovir PCR Nasal Influenza B PCR Nasal Influenza A PCR Nasal Parainfluen 1 PCR Nasal Parainfluen 2 PCR Nasal Parainfluen 3 PCR Nasal Parainfluen 4 PCR Nasal RSV (PCR) Nasal B.pertussis DNA PCR Nasal C.pneumoniae (PCR) Colt Human Metapneumo PCR Nasal M.pneumoniae (PCR) Nasal SARS-CoV-2 (PCR) Urine Opiates Screen Ur Oxycodone Screen Urine Methadone Screen Ur Propoxyphene Screen Ur Barbiturates Screen Ur Tricyclics Screen Ur Phencyclidine Scrn Ur Amphetamine Screen U Methamphetamines Scrn U Benzodiazepines Scrn Urine Cocaine Screen U Cannabinoids Screen Ethyl Alcohol 09/16/22 09/16/22 09:01 09:01 WBC RBC Hgb Hct MCV MCH MCHC RDW Plt Count MPV Neut # (Auto) Lymph # (Auto) [place] # (Auto) Eos # (Auto) Baso # (Auto) Absolute Nucleated RBC Total Counted Band Neuts % (Manual) Abnorm Lymph % (Manual) Nucleated RBC % Neutrophils # (Manual) Lymphocytes # (Manual) Monocytes # (Manual) Eosinophils # (Manual) Basophils # (Manual) Differential Comment Platelet Estimate Platelet Morphology RBC Morph Micro Appear PT INR Sodium 151 H Potassium 2.8 L Chloride 115 H Carbon Dioxide 19 L Anion Gap 17.0 H BUN 47 H Creatinine 1.1 Estimated GFR (MDRD) 66 L Glucose 139 H Lactic Acid Calcium 8.5 Magnesium 2.4 Total Bilirubin AST ALT Alkaline Phosphatase Total Protein Albumin Globulin Albumin/Globulin Ratio Lipase TSH 0.16 L Urine Color Urine Clarity Urine pH Ur Specific [place] Urine Protein Urine Glucose (UA) Urine Ketones Urine Occult Blood Urine Nitrite Urine Bilirubin Urine Urobilinogen Ur Leukocyte Esterase Urine RBC Urine WBC Ur Squamous Epith Cells Urine Bacteria Urine Casts Ur Microscopic Review Urine Culture Comments Nasal Adenovirus (PCR) Nasal B. parapertussis DNA (PCR) Nasal Coronavir 229E PCR Nasal Coronavir HKU1 PCR Nasal Coronavir NL63 PCR Nasal Coronavir OC43 PCR Nasal Enterovir/Rhinovir PCR Nasal Influenza B PCR Nasal Influenza A PCR Nasal Parainfluen 1 PCR Nasal Parainfluen 2 PCR Nasal Parainfluen 3 PCR Nasal Parainfluen 4 PCR Nasal RSV (PCR) Nasal B.pertussis DNA PCR Nasal C.pneumoniae (PCR) Colt Human Metapneumo PCR Nasal M.pneumoniae (PCR) Nasal SARS-CoV-2 (PCR) Urine Opiates Screen Ur Oxycodone Screen Urine Methadone Screen Ur Propoxyphene Screen Ur Barbiturates Screen Ur Tricyclics Screen Ur Phencyclidine Scrn Ur Amphetamine Screen U Methamphetamines Scrn U Benzodiazepines Scrn Urine Cocaine Screen U Cannabinoids Screen Ethyl Alcohol - Rads (name of study) Head CT Radiology: Final report received, See rad report PD Medical Decision Making - ED course Complexity details: reviewed old records, reviewed results, re-evaluated patient, considered differential ED course: The patient was treated with IV fluids, and worked up with laboratory studies, including CBC, ER abdominal panel, lactic acid level, urinalysis, and urine drug screen, as well as an alcohol level. Head CT was also ordered. He was tachycardic and so an EKG was ordered, as well. The patient was found, on my review of labs, to have an elevated white blood cell count of 21,000, a an elevated sodium of 150, a low potassium at 2.6, and a GFR in the 40s. His respiratory PCR panel was negative. Lactate level was slightly elevated at 2.5. His drug screen was positive for marijuana, as well as some medications he is on. His head CT showed some chronic changes but nothing acute. The patient was treated with [id number] liters of normal saline and also, with piggybacked K riders. Just before change of shift, repeat labs were sent and while the potassium is improving, the sodium was up to 155. It was decided the patient would be changed to hypotonic saline. His drug screen was positive for marijuana, as well as some medications he is on. His head CT showed some chronic changes but nothing acute. The patient was treated with [id number] liters of normal saline and also, with piggybacked K riders. Just before change of shift, repeat labs were sent and while the potassium is improving, the sodium was up to 155. It was decided the patient would be changed to hypotonic saline. The patient did not have any noticeable mental status improvement throughout his stay in the emergency department, despite extensive fluid rehydration and work-up. There are no beds in the hospital and patient is awaiting final disposition in that regard. He has been signed out to Dr. Lomas at change of shift, pending clinical reevaluation and final disposition. There are no beds in the hospital and patient is awaiting final disposition in that regard. Has been signed out to Dr. Lomas at change of shift, pending clinical reevaluation and final disposition. Phone number for daughter Darlene: [phone]. Departure - Departure Disposition: [facility] DC/Xfer Condition: Fair Discharge Date/Time: 09/16/22 13:00
[2022-09-15] MEDS ORDERED: SODIUM CHLORIDE 0.9% 1,000 ML IV STA ×2 (21:32→22:37)
[2022-09-15 21:35] LABS: ALBUMIN/GLOBULIN RATIO 1.6 (1.0-2.2); ALKALINE PHOSPHATASE 59 IU/L (42-121); ALT ALANINE AMINOTRANSFERASE 42 IU/L (10-60); AST ASPARTATE AMINOTRANSFERASE 87 IU/L (10-42); BILIRUBIN,TOTAL 2.3 mg/dL (0.2-1.0); BUN - BLOOD UREA NITROGEN 74 mg/dL (6-20); CALCIUM 10.2 mg/dL (8.5-10.3); CARBON DIOXIDE - CO2 17 mmol/L (21-32); CHLORIDE 105 mmol/L (101-111); CREATININE 1.6 mg/dL (0.6-1.2); ETOH - ETHANOL < 5.0 mg/dL; GFR - MDRD 43 (>89); GLUCOSE 158 mg/dL (70-100); LIPASE 45 U/L (22-51); POTASSIUM 2.6 mmol/L (3.5-5.0); SODIUM 150 mmol/L (135-145); TOTAL PROTEIN 8.2 g/dL (6.7-8.2)
[2022-09-15 21:41] LABS: EOSINOPHILS # (MANUAL) 0.2 10^3/uL (0-0.7); LYMPHOCYTES # (MANUAL) 2.6 10^3/uL (1.5-3.5); LYMPHOCYTES % (MANUAL) 12 %; MONOCYTES # (MANUAL) 2.4 10^3/uL (0.0-1.0); NEUTROPHILS # (MANUAL) 16.5 10^3/uL (1.5-6.6)
[2022-09-15 21:42] LABS: DIFFERENTIAL COMMENT MANUAL DIFFERENTIAL; PLATELET ESTIMATE, MANUAL NORMAL (130-450,000) (NORMAL); PLATELET MORPHOLOGY NORMAL APPEARANCE (NORMAL); RBC MORPHOLOGY (MULTIPLE) NORMAL APPEARANCE (NORMAL)
--- NOTE | 2022-09-15 21:51 | CT Report ---
PROCEDURE: HEAD WO INDICATIONS: ALOC TECHNIQUE: Noncontrast 4.5 mm thick angled axial sections acquired from the foramen magnum to the vertex. For r adiation dose reduction, the following was used: automated exposure control, adjustment of mA and/or kV according to patient size. COMPARISON: CT head 02/24/2022. FINDINGS: Image quality: Excellent. CSF spaces: There is moderate cerebral volume loss with prominence of the ventricles and sulci. Basa l cisterns are patent. No extra-axial fluid collections. Brain: No intracranial hemorrhage, mass, or mass effect. Mora-white matter interface is preserved. T here are subcortical and periventricular white matter hypodensities consistent with mild chronic smal l vessel ischemic changes. Skull and face: Calvarium and visualized facial bones are intact, without suspicious lesions. Sinuses: Visualized sinuses and mastoids are clear. IMPRESSION: 1. No acute intracranial abnormality. 2. Moderate cerebral volume loss and mild chronic white matter small vessel ischemic changes. Reviewed by: Job Purcell MD on 09/15/2022 9:49 PM PST Approved by: Job Purcell MD on 09/15/2022 9:49 PM PST Station ID: [id number]
[2022-09-15] MEDS ORDERED: LORazepam 2 MG/ML VIAL IVP STA ×2 (21:58→22:39)
[2022-09-15 22:20] LABS: B. PARAPERTUSSIS- RESP PCR PAN NOT DETECTED; B. PERTUSSIS- RESP PCR PANEL NOT DETECTED; C. PNEUMONIAE- RESP PCR PANEL NOT DETECTED; CORONAVIRUS 229E-RESP PCR NOT DETECTED; CORONAVIRUS HKU1-RESP PCR NOT DETECTED; CORONAVIRUS NL63-RESP PCR NOT DETECTED; CORONAVIRUS OC43-RESP PCR NOT DETECTED; HUMAN METAPNEUMOVIRUS NOT DETECTED; INFLUENZA A- RESP PCR PANEL NOT DETECTED; INFLUENZA B - RESP PCR PANEL NOT DETECTED; M. PNEUMONIAE- RESP PCR PANEL NOT DETECTED; PARAINFLUENZA VIRUS 1 NOT DETECTED; PARAINFLUENZA VIRUS 2 NOT DETECTED; PARAINFLUENZA VIRUS 3 NOT DETECTED; PARAINFLUENZA VIRUS 4 NOT DETECTED; RHINOVIRUS/ENTEROVIRUS NOT DETECTED; RSV- RESP PCR PANEL NOT DETECTED; SARS-CoV-2 -RESP PCR PANEL NOT DETECTED
[2022-09-15] MEDS ORDERED: POTASSIUM CHLOR 10 MEQ/100 ML 10 MEQ/100 ML BAG IV STA (22:40)
[2022-09-15] MEDS ORDERED: PHENobarbital 65 MG/ML VIAL IV STA (23:26)
[2022-09-15] MEDS ORDERED: THIAMINE INJ 100 MG, MAGNESIUM SULFATE 2 GM, MULTIVITAMIN 10 ML, FOLIC ACID INJ 1 MG in... IV ONE ×5 (23:27)
[2022-09-15] MEDS ORDERED: THIAMINE 100 MG/1 ML 2 ML MDV ONE (23:32)
[2022-09-15] MEDS ORDERED: MULTIVITAMIN IV 10 ML VIAL ONE ×2 (23:32→23:52)
[2022-09-15] MEDS ORDERED: FOLIC ACID 5 MG/1 ML 10ML MDV ONE (23:32)
[2022-09-15] MEDS ORDERED: MAGNESIUM SULFATE 1 GM/2 ML VIAL ONE (23:32)
[2022-09-16] MEDS ORDERED: iohexoL-300 100 ML VIAL ONE (00:29)
[2022-09-16] MEDS ORDERED: iohexoL-300 100 ML VIAL IVP ONE (01:10)
[2022-09-16] MEDS ORDERED: HALOPERIDOL 5 MG/ML VIAL IVP STA (01:26)
[2022-09-16] MEDS ORDERED: SODIUM CHLORIDE 0.9% 1,000 ML IV STA ×2 (01:51→03:36)
[2022-09-16 01:56] LABS: MUDS CUTOFF CONCENTRATIONS CUTOFF CONC BELOW:
[2022-09-16 01:59] LABS: GLUCOSE, URINE (UA) NEGATIVE (NEGATIVE); KETONES,URINE (UA) 15 mg/dL (NEGATIVE); LEUKOCYTE ESTERASE, URINE NEGATIVE (NEGATIVE); NITRITE,URINE NEGATIVE (NEGATIVE); OCCULT BLOOD,URINE LARGE (NEGATIVE); PROTEIN,URINE 100 mg/dL (NEGATIVE); UROBILINOGEN,URINE 0.2 (NORMAL) E.U./dL (NORMAL)
--- NOTE | 2022-09-16 02:04 | CT Report ---
PROCEDURE: ABDOMEN/PELVIS W INDICATIONS: vomiting, leukocytosis, sepsis CONTRAST: 100 ML OMNI 300 TECHNIQUE: After the administration of intravenous contrast, 5 mm thick sections acquired from the diaphragms to the symphysis. 5 mm thick coronal and sagittal reformats were acquired. For radiation dose reducti on, the following was used: automated exposure control, adjustment of mA and/or kV according to suzie ent size. COMPARISON: CT abdomen pelvis 02/24/2022. FINDINGS: Image quality: There is mild motion artifact. Beam hardening artifact is also present from patient's bilateral upper extremities. Lung bases:Mild dependent atelectasis is present laterally. Heart: Heart is normal in size. There is a small hiatal hernia. ABDOMEN: Liver: No mass lesion. Gallbladder: Within normal limits without calcified gallstones. Biliary ducts: No biliary ductal dilatation. Pancreas: Unremarkable. Spleen: Normal in size. Adrenal Glands: No adrenal nodules. Kidneys and Ureters: No hydronephrosis. There is a left renal cortical cyst. Stomach and Bowel:There is mild gastric wall thickening. Small and large bowel loops are normal in c aliber and wall thickness. Appendix is normal in appearance. Peritoneum: No abnormal intraperitoneal fluid. No free air. Ventral Wall: No hernia. Abdominal Nodes: No retroperitoneal or mesenteric adenopathy by size criteria. Vessels: Aorta and inferior vena cava are normal in size. PELVIS: Pelvic Organs: Unremarkable. Bladder: Unremarkable. Pelvic Nodes: No enlarged lymph nodes. Miscellaneous: No inguinal hernias. Bones: Visualized osseous structures demonstrate no suspicious lesions. IMPRESSION: 1. Mild gastric wall thickening suggestive of a gastritis. Reviewed by: Job Purcell MD on 09/16/2022 2:02 AM [facility] Approved by: Job Purcell MD on 09/16/2022 2:02 AM PST Station ID: [id number]
[2022-09-16 02:12] LABS: BACTERIA,URINE Rare /HPF (None Seen); BILIRUBIN,URINE NEGATIVE (NEGATIVE); CASTS, URINE 6-10 Hyaline Casts /LPF; CLARITY,URINE CLEAR (CLEAR); ICTOTEST,URINE NEGATIVE; RBC,URINE 0-5 /HPF (0-5); SQUAMOUS EPITHELIAL CELL,UR FEW Squamous (<= Few); WBC,URINE 0-3 /HPF (0-3)
[2022-09-16 02:13] LABS: AMPHETAMINE SCREEN,URINE NEGATIVE (NEGATIVE); BARBITURATE SCREEN,UR POSITIVE (NEGATIVE); BENZODIAZEPINES SCREEN, URINE NEGATIVE (NEGATIVE); COCAINE SCREEN URINE NEGATIVE (NEGATIVE); METHADONE SCREEN, URINE NEGATIVE (NEGATIVE); METHAMPHETAMINES SCREEN, URINE NEGATIVE (NEGATIVE); OPIATE SCREEN, URINE NEGATIVE (NEGATIVE); OXYCODONE SCREEN, URINE NEGATIVE (NEGATIVE); PROPOXYPHENE SCREEN, URINE NEGATIVE (NEGATIVE); THC CANNABINOID SCREEN, URINE POSITIVE (NEGATIVE); TRICYCLIC ANTIDEPRESSANT,URINE POSITIVE (NEGATIVE)
[2022-09-16] MEDS ORDERED: HYDROmorphone 1 MG/ML CARPUJECT IVP STA (03:52)
[2022-09-16] MEDS ORDERED: LORazepam 2 MG/ML VIAL IVP STA (03:52)
[2022-09-16 06:20] LABS: BASOPHILS % (AUTO) 0.1 %; EOSINOPHILS % (AUTO) 0.2 %; HCT - HEMATOCRIT 40.8 % (42.0-52.0); HGB - HEMOGLOBIN 13.5 g/dL (14.0-18.0); LYMPHOCYTES # (AUTO) 1.7 10^3/uL (1.5-3.5); LYMPHOCYTES % (AUTO) 12.4 %; MEAN CORPUSCULAR HEMOGLOBIN 31.1 pg (27.0-31.0); MEAN CORPUSCULAR HGB CONC 33.1 g/dL (32.0-36.0); MEAN PLATELET VOLUME 9.5 fL (7.4-11.4); MONOCYTES # (AUTO) 1.4 10^3/uL (0.0-1.0); MONOCYTES % (AUTO) 10.2 %; NEUTROPHILS # (AUTO) 10.2 10^3/uL (1.5-6.6); NEUTROPHILS % (AUTO) 76.5 %; PLT - PLATELET COUNT 217 10^3/uL (130-450); RED BLOOD COUNT 4.34 10^6/uL (4.70-6.10); RED CELL DISTRIBUTION WIDTH 14.2 % (12.0-15.0); WHITE BLOOD COUNT 13.4 x10^3/uL (4.8-10.8)
[2022-09-16 06:34] LABS: ALBUMIN 3.5 g/dL (3.2-5.5); ALBUMIN/GLOBULIN RATIO 1.3 (1.0-2.2); BILIRUBIN,TOTAL 1.4 mg/dL (0.2-1.0); CALCIUM 8.4 mg/dL (8.5-10.3); POTASSIUM 2.9 mmol/L (3.5-5.0); TOTAL PROTEIN 6.2 g/dL (6.7-8.2)
[2022-09-16] MEDS: D5.45NS W/20 MEQ KCL 1,000 ML IV SCH ×2 (08:01→13:29)
[2022-09-16 09:26] LABS: CALCIUM 8.5 mg/dL (8.5-10.3); CREATININE 1.1 mg/dL (0.6-1.2); MAGNESIUM 2.4 mg/dL (1.7-2.8); POTASSIUM 2.8 mmol/L (3.5-5.0)
[2022-09-16] MEDS ORDERED: diazePAM INJ 5 MG/ML SYRINGE IVP STA (11:20)
[2022-09-16] MEDS ORDERED: SODIUM CHLORIDE FLUSH 0.9% 10 ML SYRINGE IVP PRN (12:24)
[2022-09-16] MEDS ORDERED: ONDANSETRON ODT 4 MG TABLET TL PRN (12:24)
[2022-09-16] MEDS ORDERED: ONDANSETRON 4 MG/2 ML VIAL IVP PRN (12:24)
[2022-09-16] MEDS ORDERED: oxyCODONE 5 MG TABLET PO PRN (12:24)
--- NOTE | 2022-09-16 12:44 | HISTORY & PHYSICAL EXAMINATION ---
Chief Complaint - Chief Complaint Chief Complaint: Incoherent and confused September 15 a.m. History of Present Illness - Admitted From Admitted From:: Emergency room, brought in by ambulance from home September 15 - History Obtained From Records Reviewed: [facility] History obtained from: Dr. Lomas and [facility] Exam Limitations: Patient is still sleepy, not really verbal - History of Present Illness HPI Comment/Other: This is a 72-year-old white male who has a past medical history significant for hypertension, hyperlipidemia, PTSD, anxiety, depression, and overuse of marijuana with significant psychomotor slowing, sedation, and cyclical vomiting from said marijuana. He now presents as gradually becoming more unresponsive. His family states that he does this about every 6 months, usually associated wit h cannabis. When he is admitted, he will be hypokalemic, and obtunded for a few days and then he gradually wakes up. We admitted him in October 2021 and February 2022 for this. He was a no show for his PCP visit 03/05/22 and has not seen the PCP in the clinic here. With this encounter, he was brought to the emergency room on September 15 by EMS. Family called EMS because the patient had not been really responding since that morning. His last known normal was the night before when he went to bed. He woke up that morning morning not really answering questions but moaning and groaning. He seemed confused. And sleepier than normal. He had stopped smoking cannabis on September 12. He had been vomiting. He vomited off-and-on, and his family was trying to give him his usual home meds but he really was not able to keep them down. They did not describe fever. They did not describe cough, congestion, or abdominal pain. There is no previous history of trauma or falling. In the emergency room temperature was 36.6. Heart rate 112. Blood pressure 133/115. Respirations 17. He was on 100% saturated on room air. He was awake, following commands but not really able to answer questions. Glucose was 171 for the medics. The ER doctor describes them as without distress, well-developed and well-nourished. He was awake and making eye contact when you call his name. But he did not have any coherent answers to any questions. He did not seem to understand what was being asked. Lungs were clear. No respiratory distress. Abdomen was benign. And he appeared delirious on neuro exam without any gross focal deficits. His white cell count was 21.7. Hemoglobin 17.4. Platelets 364. Sodium was elevated at 150. Potassium was low 2.6. BUN was 74, creatinine 1.6. Lactic a michel was 2.5. Head CT was done and there is no acute intracranial abnormality. He has moderate cerebral volume loss and mild chronic white matter disease. Because he had an elevated white cell count, and he was vomiting, a CT of the abdomen was done several hours later. His solid organs were unremarkable. He did not have hydronephrosis. He had a small left renal cortical cyst. There was gastric wall thickening suggestive of gastritis. Small and large bowel loops were normal. No air-fluid levels. No free air. At that point in time there were no beds available for admission. The patient was kept in the emergency room. He received 3 L of normal saline for that sodium of 150. Sodium climbed to 155. He also received potassium riders. His IV fluids were changed to D5 half-normal saline. This morning sodium is 151 and potassium is 2.8. BUN has improved to 47 and creatinine is Down to 1.1. He is still not very awake. Sleeping. We have been asked to bring him into the acute care [facility] and he will be an inpatient. Management was discussed with the ER provider, Dr. Lomas, where we discussed the details of previous treatment. And what we would be doing as we brought him into the inpatient side. History - Past Medical History Cardiovascular: reports: Hypertension, High cholesterol, Coronary artery disease (Mild. Angio 2019 w mod LAD, nml IFR. Mod Ostial ramus. Patent LM, LCfx, RCA. EF 65%. ), Peripheral Vascular Disease (possbile but never followed up on arterial studies), Arrhythmia (wide complex tachy sometimes read a multiform Vtach by [employer] 09/2019. or motion artifact as per EP Cardiology. ECHO nml then), Other (atypical cp 06/2006. Flown to [facility] from here. ETT neg. ?GERD) Respiratory: reports: COPD (quite cigs 1991) Neuro: reports: CVA (right lacunar infarct and [facility] then), Peripheral neuropathy (idiopathic), Tremors (since 2018, essential by Neuro at [facility]), Fainting (syncope. demand equipment repairer found him stumbling along road, called 911 09/2019), Other (chronic gait ataxia and uses a cane. from neuropathy, vestibular dysf, central dysfunc, cerebellar damage from Etoh) Endocrine/Autoimmune: reports: Type 2 diabetes (Dx 08/2006. Tx diet and exercise.) GI: reports: GERD, GI bleed (BRBPR w scope 07/2004>hemorrhoids. Repeat scope 12/2015 hemorrhoids. ), Other (alcohol abuse, stopped 2019.macrocytosis.) : reports: Benign prostate hypertrophy (w mild retention on CT 2017), Other (erectile dysfunction w Viagara use. ) HEENT: reports: Other (lip abcess 04/2009) Psych: reports: Depression, Anxiety, Post traumatic stress disorder (p service. Nightmares, insomnia, hypervigilance. Easy anger. Drinks. ), Other (abnml loss of wt 2018 65-70 lbs over 3 months. Nml barium swallow, CT abd neg x for mild splenomegaly.) Musculoskeletal: reports: Osteoarthritis, Chronic back pain (MRI C spine 11/2008 w multilev DJD, R sided foraminal stenosis C spine), Other Derm: reports: Other MRSA Hx?: No Other Past Medical History: Cannabis overuse with cyclical vomiting, obtundatio n, hyperkalemia - Past Surgical History General: reports: Bowel surgery, Colonoscopy, Other (incarcerated hernia w surgery ~2001) Ortho: reports: Other - Family & Social History Family History Comment/Other: Family history from [employer]. Dad has diabetes. Living arrangement: At home Living Situation: With spouse/s.o. Social History Notes: He lives at home with his . He used to drink heavily but stopped doing so about a year ago. He appears to have replaced alcohol consumption with marijuana use which he does on a daily basis. - POLST Patient has POLST: No POLST Status: Full Code Meds/Allgy - Home Medications Home Medications: Ambulatory Orders Medication Instructions Recorded Confirmed Cyclobenzaprine [Flexeril] 10 mg PO TID PRN 12/19/15 09/15/22 Prazosin HCl [Minipress] 4 mg PO QPM 12/19/15 09/15/22 Atorvastatin Calcium 40 mg PO QPM 01/20/17 09/15/22 Propranolol ER [Inderal LA] 60 mg PO DAILY 02/06/21 09/15/22 Aspirin EC [Ecotrin] 81 mg PO DAILY 11/04/21 09/15/22 hydrOXYzine HCL [Hydroxyzine HCl] 25 mg PO TID PRN 11/05/21 09/15/22 Lisinopril [Zestril] 10 mg PO DAILY 02/25/22 09/15/22 Sertraline HCl 200 mg PO DAILY 02/25/22 09/15/22 buPROPion HCL [Bupropion HCl Sr] 150 mg PO BID 02/25/22 09/15/22 Cholecalciferol (Vitamin D3) 5,000 unit PO DAILY 09/16/22 09/16/22 [Vitamin D3] Famotidine [Pepcid] 20 mg PO DAILY 09/16/22 09/16/22 Gabapentin [Neurontin] 600 mg PO TID 09/16/22 09/16/22 Multivit-Minerals/Folic Acid 200 mcg PO DAILY 09/16/22 09/16/22 [Multivitamin Gummies] - Allergies Allergies/Adverse Reactions: Allergies Allergy/AdvReac Type Severity Reaction Status Date / Time bee venom protein (honey bee) Allergy Unknown Verified 09/15/22 21:11 Review of Systems - Other Findings Other Findings: Lethargic. Unable to participate in questions. Prior Level of Functionality: When he is not in the hospital he is described as ambulatory without using any durable medical equipment. Feed himself, dresses himself, bathe himself without assistance. Exam - Vital Signs Reviewed Vital Signs: Yes Vital Signs: Vital Signs x48h Temp Pulse Resp BP Pulse Ox 09/16/22 11:29 103 H 28 H 143/86 H 92 09/16/22 10:35 95 17 114/100 H 95 09/16/22 10:19 97 22 135/88 H 92 09/16/22 09:57 107 H 28 H 143/99 H 95 09/16/22 09:24 97 23 152/93 H 98 09/16/22 08:30 37 C 94 19 153/96 H 99 09/16/22 07:33 99 17 164/104 H 97 09/16/22 06:40 124 H 29 H 147/88 H 100 09/16/22 05:56 100 24 144/96 H 97 09/16/22 05:16 37.2 C 104 H 19 141/92 H 96 09/16/22 04:45 106 H 30 H 153/88 H 98 - Physical Exam General Appearance: positive: No acute distress (But fidgeting, and intermittent jerking movements where he seems uncomfortable.), Alert (But he cannot tell you his name. Speech is disjointed.), Other (Very tall man at 6 foot 8 inches tall, gaunt by appearance, full turk, long hair, disheveled appearing) Eyes Bilateral: positive: PERRL, EOMI ENT: positive: Dry mucous membranes Neck: positive: No JVD Respiratory: positive: No respiratory distress. negative: Wheezes, Rales, Rhonchi Cardiovascular: positive: Regular rate & rhythm, Systolic murmur Peripheral Pulses: positive: 1+ Abdomen: positive: Nml bowel sounds, No distention, Tenderness (And he frowns, and tries to remove my hands from palpating his belly. But it does not appear to be severe. He will spontaneously move in bed without discomfort.), Other (Nurse is reporting that he is retaining urine of over 500 cc at time). negative: Guarding, Rebound Skin: positive: Warm, Dry. negative: Pallor Extremities: positive: Full ROM (He is spontaneously moving around, rolling over in bed, raising his arms and putting a behind his head), No pedal edema Neurologic/Psychiatric: positive: CN's nml (2-12), Motor nml (But intermittent jerking at times.), Disoriented to place, Disoriented to time, Slurred/abnml speech (Disjointed speech. Intermittently alert and then sleepy.) Conclusion/Plan - Problem List (1) Altered mental status Conclusion/Plan: His family states that this is what he does every 6 months. By looking at our previous admissions, I have to concur with their assessment. Toxicology screen does show barbiturates and tricyclics as well as cannabinoids. ER provider feels that the barbiturates are most likely from them. Tricyclics are from his med list. No stroke on CT. Although he has hyponatremia I do not think this in and of itself is causing his altered mental status at this time. 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 Plan: Inpatient status. It usually takes him 2 to 3 days to wake up. IV fluids to support. Qualifiers: Altered mental status type: delirium Qualified Code(s): R41.0 - Disorientation, unspecified (2) Cannabis abuse Conclusion/Plan: At our last encounter, I did let him know that his overuse was leading to not only poor health on his part, but hospital admissions it could be avoided. He told me, at that time, that he felt that our conclusion was incorrect. I did have a long conversation with his at that time. She says that there is not much she can do to control his behavior. When he wakes up, we can rediscuss again. Social work consult. (3) Hypernatremia Conclusion/Plan: Due to dehydration. Vomiting. I will be giving him D5 fluids. Watch sodium to make sure we do not change too quickly. Aim for 6 mEq change every 24 hours Recheck sodium 6 hours from last time. (4) Dehydration Conclusion/Plan: As indicated by dry oral mucosa, and elevated sodium. D5 being infused. Regular diet ordered. (5) Hypertension Conclusion/Plan: At home he is on Minipress and Inderal. As well as Zestril. We will resume those medications. He may not be able to be awake enough and alert enough to swallow the pills however. Qualifiers: Hypertension type: primary hypertension Qualified Code(s): I10 - Essential (primary) hypertension (6) Hypokalemia Conclusion/Plan: IV supplementation in free water. Recheck tomorrow. I have ordered 8 bags tot al. (7) Leukocytosis Conclusion/Plan: No coughing, and lung exam negative. Urinalysis has abnormal constituents but not a UTI. Abdomen appears benign but he does not like me examining it. At this time no antibiotics, repeat white cell count. If he spikes a temperature, will do blood cultures, repeat CBC, and start empiric antibiotics. Qualifiers: Leukocytosis type: leukemoid reaction Qualified Code(s): D72.823 - Leukemoid reaction (8) Gastritis Conclusion/Plan: Family said he had some emesis. In the past he has cyclical vomiting. CT of the abdomen indicates thickened gastric wall with gastritis. He will be placed on his home famotidine and proton pump inhibitor Qualifiers: Gastritis type: unspecified gastritis Chronicity: acute Gastritis bleeding: without bleeding Qualified Code(s): K29.00 - Acute gastritis without bleeding - Lab Results Lab results reviewed: Yes Fish Bones: 09/16/22 06:15 09/16/22 12:58 - Diagnostic Imaging Results Diagnostic Imaging Results: positive: Final report reviewed Diagnostic Imaging Results Comments: Head CT with moderate cerebral volume loss and chronic ischemic changes. Abdomen pelvis CT was solid organs normal, no colitis or air-fluid levels. - EKG Results EKG Interpreted Independently: No Core Measures - Anticipated LOS I expect patient to be DC'd or transferred within 96 hours.: Yes - DVT/VTE - Prophylaxis VTE/DVT Prophylaxis med ordered at admit?: Yes
[2022-09-16 13:23] LABS: CALCIUM 8.8 mg/dL (8.5-10.3); CREATININE 0.8 mg/dL (0.6-1.2); POTASSIUM 2.9 mmol/L (3.5-5.0)
[2022-09-16] MEDS: DEXTROSE 5% 1,000 ML IV SCH (13:32)
[2022-09-16] MEDS: POTASSIUM CHLOR 10 MEQ/100 ML 10 MEQ/100 ML BAG IV SCH ×8 (13:32→23:59)
--- NOTE | 2022-09-16 16:53 | PHARMACY PROGRESS NOTE ---
- Best Possible Medication History Admit Date and Time: 09/16/22 1224 Processed by: Pharmacy Medication History completed: Yes Patient Interview: Pt unable to participate Secondary Source(s): Spouse/Significant other (Phone interview with spouse, who stated she helps patient and gives him his meds every day. Medications were reconciled against the list that she had. Pt states he started not taking the omeprazole bc he ran out and didn't want to go to the Doctor. [facility] As the person ultimately responsible for medication therapy, providers are able to order a medication from an existing home medication list in [facility] via the "Reconcile Routine" prior to Confirmation of that medication by systems support specialist. Such practice is discouraged except when the physician, in their clinical judgment, deems that a medical need exists for a medication without regard to previous use.
[2022-09-16] MEDS: SODIUM CHLORIDE FLUSH 0.9% 10 ML SYRINGE IVP SCH (18:16)
[2022-09-16] MEDS: GABAPENTIN 300 MG CAPSULE PO SCH (21:50)
[2022-09-17] MEDS: DEXTROSE 5% 1,000 ML IV SCH ×2 (01:37→16:51)
[2022-09-17 05:42] LABS: BASOPHILS % (AUTO) 0.1 %; EOSINOPHILS # (AUTO) 0.2 10^3/uL (0.0-0.7); EOSINOPHILS % (AUTO) 2.5 %; HCT - HEMATOCRIT 38.4 % (42.0-52.0); HGB - HEMOGLOBIN 12.5 g/dL (14.0-18.0); LYMPHOCYTES # (AUTO) 1.3 10^3/uL (1.5-3.5); LYMPHOCYTES % (AUTO) 16.1 %; MEAN CORPUSCULAR HEMOGLOBIN 31.3 pg (27.0-31.0); MEAN CORPUSCULAR HGB CONC 32.6 g/dL (32.0-36.0); MEAN PLATELET VOLUME 9.7 fL (7.4-11.4); MONOCYTES # (AUTO) 0.7 10^3/uL (0.0-1.0); MONOCYTES % (AUTO) 8.7 %; NEUTROPHILS # (AUTO) 5.8 10^3/uL (1.5-6.6); NEUTROPHILS % (AUTO) 72.2 %; PLT - PLATELET COUNT 174 10^3/uL (130-450); RED CELL DISTRIBUTION WIDTH 14.2 % (12.0-15.0); WHITE BLOOD COUNT 8.1 x10^3/uL (4.8-10.8)
[2022-09-17 05:50] LABS: CALCIUM 8.7 mg/dL (8.5-10.3); CREATININE 0.6 mg/dL (0.6-1.2)
[2022-09-17] MEDS: SODIUM CHLORIDE FLUSH 0.9% 10 ML SYRINGE IVP SCH ×3 (06:08→18:01)
[2022-09-17] MEDS: GABAPENTIN 300 MG CAPSULE PO SCH ×2 (06:08→21:31)
[2022-09-17] MEDS: ASPIRIN EC 81 MG TABLET PO SCH (09:55)
[2022-09-17] MEDS: buPROPion SR 150 MG TABLET PO SCH ×2 (09:55→21:31)
[2022-09-17] MEDS: lisinopriL 5 MG TABLET PO SCH (09:55)
[2022-09-17] MEDS: SERTRALINE 50 MG TABLET PO SCH (09:55)
[2022-09-17] MEDS: PROPRANOLOL ER 60 MG CAPSULE PO SCH (09:56)
[2022-09-17] MEDS: ENOXAPARIN 40 MG/0.4 ML SYRINGE SUBQ SCH (09:56)
[2022-09-17] MEDS: FAMOTIDINE 20 MG TABLET PO SCH (09:56)
[2022-09-17] MEDS: POTASSIUM CHLOR 10 MEQ/100 ML 10 MEQ/100 ML BAG IV SCH ×4 (10:31→18:37)
--- NOTE | 2022-09-17 14:24 | PROVIDER PROGRESS NOTE ---
Assessment/Plan - Problem List (1) Altered mental status Qualifiers: Altered mental status type: disorientation Qualified Code(s): R41.0 - Disorientation, unspecified Assessment/Plan: His family stated that "this is what he does every 6 months". By looking at his previous admissions, I have to concur with their assessment. The cause is probably multi-factorial: Toxicology screen does show barbiturates and tricyclics as well as cannabinoids. ER provider feels that the barbiturates are most likely from them. Tricyclics are from his med list. No stroke on CT. Hypernatremia with dehydration were also present. Today he is already "awake" but is oriented only to self, not place or time. When asked question, he answers regarding something entirely different and this happens repeatedly. CT of the head does show moderate atrophy and there was a history of an old stroke. 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 Plan: Continue IV fluids to correct the hypernatremia We will request PT evaluation (he cannot remember walking to the bathroom today) We will request OT evaluation for cognitive eval. I have already told the patient, with present, that he may no longer drive given how obvious his memory impairment is. A DMV form will be submitted. The said their daughter lives with them and could be the designated power truck driver. We will try to decrease doses of some of his psychoactive and neuropathy meds while he is here Qualifiers: Altered mental status type: delirium Qualified Code(s): R41.0 - Disorientation, unspecified (2) Cannabis abuse Conclusion/Plan: At the last admission, another Hospitalist did let him know that his overuse was leading to not only poor health on his part, but hospital admissions that could be avoided. He said, at that time, that he felt that our conclusion was incorrect. She had said that there is not much she can do to control his behavior. Plan: Social work consult. Promote, by teaching, why cannabis excess use is detrimental (3) Hypernatremia Conclusion/Plan: Due to dehydration. From poor po intake of liquids and from vomiting. All labs were reviewed his sodium has improved to 148 today Plan: Continue D5 iv fluids. Monitor sodium to make sure we do not change too quickly. Aim for 6 mEq change every 24 hours Follow serum Na q 6-12h (4) Dehydration Conclusion/Plan: As indicated by dry oral mucosa at admission, and elevated sodium. Plan: As in #3. D5 being infused. Regular diet was ordered. (5) Hypertension Conclusion/Plan: At home he is on Minipress, Inderal and Zestril. Plan: We will resume those medications. These do not cause over-sedation, this was explained to the today Qualifiers: Hypertension type: primary hypertension Qualified Code(s): I10 - Essential (primary) hypertension (6) Hypokalemia Conclusion/Plan: All labs reviewed. His potassium is still low at 3.0 to From poor po intake of liquids and from vomiting. Plan: IV supplementation. Recheck tomorrow. (7) Chronic pain According to his medication list he has chronic neuropathy and takes gabapentin and muscle relaxants Today I asked him where he usually gets pain and he absolutely cannot remember. Plan: We will try to decrease doses of some of his psychoactive and neuropathy meds (8) Tremor It is for a tremor that he is on propranolol, not for hypertension Plan: Continue his Propranolol (9) Leukocytosis Conclusion/Plan: Resolved No coughing, and lung exam negative. Urinalysis has abnormal constituents but not a UTI. Abdomen appears benign but he does not like me examining it. At this time no antibiotics, repeat white cell count. If he spikes a temperature, will do blood cultures, repeat CBC, and start empiric antibiotics. Qualifiers: Leukocytosis type: leukemoid reaction Qualified Code(s): D72.823 - Leukemoid reaction (9) Gastritis Conclusion/Plan: Family said he had some emesis. In the past he has had cyclical vomiting. CT of the abdomen showed thickened gastric wall with gastritis. Gastritis sx have resolved, and a regular diet was already ordered. Plan: He was placed on his home famotidine and proton pump inhibitor Qualifiers: Gastritis type: unspecified gastritis Chronicity: acute Gastritis bleeding: without bleeding Qualified Code(s): K29.00 - Acute gastritis without bleeding - Current Meds Current Meds: Current Medications Generic Name Dose Route Start Last Admin Trade Name Freq PRN Reason Stop Dose Admin Aspirin 81 mg 09/17/22 09:00 09/17/22 09:55 Aspirin Ec 81 Mg Tablet PO 81 mg DAILY NORMA Administration Bupropion HCl 150 mg 09/17/22 09:00 09/17/22 09:55 Bupropion Sr 150 Mg Tablet PO 150 mg BID NORMA Administration Enoxaparin Sodium 40 mg 09/17/22 09:00 09/17/22 09:56 Enoxaparin 40 Mg/0.4 Ml Syringe SUBQ 40 mg DAILY NORMA Administration Famotidine 20 mg 09/17/22 09:00 09/17/22 09:56 Famotidine 20 Mg Tablet PO 20 mg DAILY NORMA Administration Gabapentin 600 mg 09/16/22 22:00 09/17/22 06:08 Gabapentin 300 Mg Capsule PO 600 mg TID NORMA Administration Dextrose 1,000 mls @ 83.333 mls/hr 09/16/22 13:00 09/17/22 10:39 D5w IV 0 mls/hr .Q12H NORMA Infusion Lisinopril 10 mg 09/17/22 09:00 09/17/22 09:55 Lisinopril 5 Mg Tablet PO 10 mg DAILY NORMA Administration Propranolol HCl 60 mg 09/17/22 09:00 09/17/22 09:56 Propranolol Er 60 Mg Capsule PO 60 mg DAILY NORMA Administration Sertraline HCl 200 mg 09/17/22 09:00 09/17/22 09:55 Sertraline 50 Mg Tablet PO 200 mg DAILY NORMA Administration Sodium Chloride 10 ml 09/16/22 17:00 09/17/22 10:14 Sodium Chloride Flush 0.9% 10 Ml Syringe IVP Not Given 0100,0900,1700 NORMA - Lab Result Fish Bone Diagrams: 09/18/22 07:12 09/18/22 07:12 - Additional Planning My Orders: My Active Orders 09/17/22 Evaluate and Treat OT [OT] Routine Evaluate and Treat PT [PT] Routine Subjective - Subjective Patient Reports: Resting Comfortably, No Complaints Objective Vital Signs: Vital Signs - 24 hr 09/16/22 09/16/22 09/17/22 16:00 20:21 00:02 Temperature 36.7 C 37.1 C 36.8 C Heart Rate [ 99 93 76 Monitoring electrodes] Respiratory 18 18 18 Rate Blood Pressure 163/75 H 148/94 H 148/79 H [Right Brachial artery] Blood Pressure 164/85 H [Right Radial artery] O2 Saturation 98 97 99 09/17/22 09/17/22 06:00 08:36 Temperature 36.2 C L 36.5 C Heart Rate [ 74 84 Monitoring electrodes] Respiratory 18 18 Rate Blood Pressure 137/76 H 137/76 H [Right Brachial artery] Blood Pressure [Right Radial artery] O2 Saturation 100 Oxygen O2 Source Room air I&O (Last 24 Hrs): Intake and Output Totals x24h 09/15/22 09/16/22 09/17/22 23:59 23:59 23:59 Intake Total 8090.752 1027.623 Output Total 500 Balance 7590.752 1027.623 General: Alert, No acute distress HEENT: Mucous membr. moist/pink, Other (Appears disheveled, has long hair, very long turk and poor dentition with some missing teeth) Neck: Supple, Other (Cannot evaluate JVP due to his long hair and long turk) Neuro: Alert, Disoriented, Non Focal, Other (very poor memory. is tangential, tr ies to answer with humor.) Cardiovascular: Regular rate, No murmurs Respiratory: No respiratory distress, Breath sounds nml Abdomen: Normal bowel sounds, Soft Extremities: No clubbing, No edema - Results Results: Laboratory Results WBC 8.1 x10^3/uL (4.8-10.8) 09/17/22 05:27 RBC 4.00 10^6/uL (4.70-6.10) L 09/17/22 05:27 Hgb 12.5 g/dL (14.0-18.0) L 09/17/22 05:27 Hct 38.4 % (42.0-52.0) L 09/17/22 05:27 MCV 96.0 fL (80.0-94.0) H 09/17/22 05:27 MCH 31.3 pg (27.0-31.0) H 09/17/22 05:27 MCHC 32.6 g/dL (32.0-36.0) 09/17/22 05:27 RDW 14.2 % (12.0-15.0) 09/17/22 05:27 Plt Count 174 10^3/uL (130-450) 09/17/22 05:27 MPV 9.7 fL (7.4-11.4) 09/17/22 05:27 Neut # (Auto) 5.8 10^3/uL (1.5-6.6) 09/17/22 05:27 Lymph # (Auto) 1.3 10^3/uL (1.5-3.5) L 09/17/22 05:27 Kinney # (Auto) 0.7 10^3/uL (0.0-1.0) 09/17/22 05:27 Eos # (Auto) 0.2 10^3/uL (0.0-0.7) 09/17/22 05:27 Baso # (Auto) 0.0 10^3/uL (0.0-0.1) 09/17/22 05:27 Absolute Nucleated RBC 0.00 x10^3/uL 09/17/22 05:27 Total Counted 100 09/15/22 21:15 Band Neuts % (Manual) 0 % (0-10) 09/15/22 21:15 Abnorm Lymph % (Manual) 0 % 09/15/22 21:15 Nucleated RBC % 0.0 /100WBC 09/17/22 05:27 Neutrophils # (Manual) 16.5 10^3/uL (1.5-6.6) H 09/15/22 21:15 Lymphocytes # (Manual) 2.6 10^3/uL (1.5-3.5) 09/15/22 21:15 Monocytes # (Manual) 2.4 10^3/uL (0.0-1.0) H 09/15/22 21:15 Eosinophils # (Manual) 0.2 10^3/uL (0-0.7) 09/15/22 21:15 Basophils # (Manual) 0.0 10^3/uL (0-0.1) 09/15/22 21:15 Differential Comment MANUAL DIFFERENTIAL 09/15/22 21:15 Platelet Estimate NORMAL (130-450,000) (NORMAL) 09/15/22 21:15 Platelet Morphology NORMAL APPEARANCE (NORMAL) 09/15/22 21:15 RBC Morph Micro Appear NORMAL APPEARANCE (NORMAL) 09/15/22 21:15 PT 12.3 secs (9.9-12.6) 09/15/22 21:15 INR 1.1 (0.8-1.2) 09/15/22 21:15 Sodium 148 mmol/L (135-145) H 09/17/22 05:27 Potassium 3.0 mmol/L (3.5-5.0) L 09/17/22 05:27 Chloride 112 mmol/L (101-111) H 09/17/22 05:27 Carbon Dioxide 22 mmol/L (21-32) 09/17/22 05:27 Anion Gap 14.0 (6-13) H 09/17/22 05:27 BUN 24 mg/dL (6-20) H 09/17/22 05:27 Creatinine 0.6 mg/dL (0.6-1.2) 09/17/22 05:27 Estimated GFR (MDRD) 133 (>89) 09/17/22 05:27 Glucose 149 mg/dL (70-100) H 09/17/22 05:27 Lactic Acid 1.4 mmol/L (0.5-2.2) 09/16/22 06:09 Calcium 8.7 mg/dL (8.5-10.3) 09/17/22 05:27 Magnesium 2.4 mg/dL (1.7-2.8) 09/16/22 09:01 Total Bilirubin 1.4 mg/dL (0.2-1.0) H 09/16/22 06:15 AST 70 IU/L (10-42) H 09/16/22 06:15 ALT 38 IU/L (10-60) 09/16/22 06:15 Alkaline Phosphatase 43 IU/L (42-121) 09/16/22 06:15 Total Protein 6.2 g/dL (6.7-8.2) L 09/16/22 06:15 Albumin 3.5 g/dL (3.2-5.5) 09/16/22 06:15 Globulin 2.7 g/dL (2.1-4.2) 09/16/22 06:15 Albumin/Globulin Ratio 1.3 (1.0-2.2) 09/16/22 06:15 Lipase 39 U/L (22-51) 09/16/22 06:15 TSH 0.16 uIU/mL (0.34-5.60) L 09/16/22 09:01 Free T4 1.59 ng/dL (0.58-1.64) 09/17/22 05:27 Urine Color DARK YELLOW 09/16/22 01:50 Urine Clarity CLEAR (CLEAR) 09/16/22 01:50 Urine pH 6.0 PH (5.0-7.5) 09/16/22 01:50 Ur Specific [place] >=1.030 (1.002-1.030) H 09/16/22 01:50 Urine Protein 100 mg/dL (NEGATIVE) H 09/16/22 01:50 Urine Glucose (UA) NEGATIVE mg/dL (NEGATIVE) 09/16/22 01:50 Urine Ketones 15 mg/dL (NEGATIVE) H 09/16/22 01:50 Urine Occult Blood LARGE (NEGATIVE) H 09/16/22 01:50 Urine Nitrite NEGATIVE (NEGATIVE) 09/16/22 01:50 Urine Bilirubin NEGATIVE (NEGATIVE) 09/16/22 01:50 Urine Urobilinogen 0.2 (NORMAL) E.U./dL (NORMAL) 09/16/22 01:50 Ur Leukocyte Esterase NEGATIVE (NEGATIVE) 09/16/22 01:50 Urine RBC 0-5 /HPF (0-5) 09/16/22 01:50 Urine WBC 0-3 /HPF (0-3) 09/16/22 01:50 Ur Squamous Epith Cells FEW Squamous (<= Few) 09/16/22 01:50 Urine Bacteria Rare /HPF (None Seen) 09/16/22 01:50 Urine Casts 6-10 Hyaline Casts /LPF 09/16/22 01:50 Ur Microscopic Review INDICATED 09/16/22 01:50 Urine Culture Comments NOT INDICATED 09/16/22 01:50 Nasal Adenovirus (PCR) NOT DETECTED 09/15/22 21:23 Nasal B. parapertussis DNA (PCR) NOT DETECTED 09/15/22 21:23 Nasal Coronavir 229E PCR NOT DETECTED 09/15/22 21:23 Nasal Coronavir HKU1 PCR NOT DETECTED 09/15/22 21:23 Nasal Coronavir NL63 PCR NOT DETECTED 09/15/22 21:23 Nasal Coronavir OC43 PCR NOT DETECTED 09/15/22 21:23 Nasal Enterovir/Rhinovir PCR NOT DETECTED 09/15/22 21:23 Nasal Influenza B PCR NOT DETECTED 09/15/22 21:23 Nasal Influenza A PCR NOT DETECTED 09/15/22 21:23 Nasal Parainfluen 1 PCR NOT DETECTED 09/15/22 21:23 Nasal Parainfluen 2 PCR NOT DETECTED 09/15/22 21:23 Nasal Parainfluen 3 PCR NOT DETECTED 09/15/22 21:23 Nasal Parainfluen 4 PCR NOT DETECTED 09/15/22 21:23 Nasal RSV (PCR) NOT DETECTED 09/15/22 21:23 Nasal B.pertussis DNA PCR NOT DETECTED 09/15/22 21:23 Nasal C.pneumoniae (PCR) NOT DETECTED 09/15/22 21:23 Colt Human Metapneumo PCR NOT DETECTED 09/15/22 21:23 Nasal M.pneumoniae (PCR) NOT DETECTED 09/15/22 21:23 Nasal SARS-CoV-2 (PCR) NOT DETECTED 09/15/22 21:23 Urine Opiates Screen NEGATIVE (NEGATIVE) 09/16/22 01:50 Ur Oxycodone Screen NEGATIVE (NEGATIVE) 09/16/22 01:50 Urine Methadone Screen NEGATIVE (NEGATIVE) 09/16/22 01:50 Ur Propoxyphene Screen NEGATIVE (NEGATIVE) 09/16/22 01:50 Ur Barbiturates Screen POSITIVE (NEGATIVE) H 09/16/22 01:50 Ur Tricyclics Screen POSITIVE (NEGATIVE) H 09/16/22 01:50 Ur Phencyclidine Scrn NEGATIVE (NEGATIVE) 09/16/22 01:50 Ur Amphetamine Screen NEGATIVE (NEGATIVE) 09/16/22 01:50 U Methamphetamines Scrn NEGATIVE (NEGATIVE) 09/16/22 01:50 U Benzodiazepines Scrn NEGATIVE (NEGATIVE) 09/16/22 01:50 Urine Cocaine Screen NEGATIVE (NEGATIVE) 09/16/22 01:50 U Cannabinoids Screen POSITIVE (NEGATIVE) H 09/16/22 01:50 Ethyl Alcohol < 5.0 mg/dL 09/15/22 21:15 - Procedures Procedures: Procedures INSPECTION OF LOWER INTESTINAL TRACT, ENDO (12/19/15)
--- NOTE | 2022-09-17 14:27 | ADVANCE CARE PLANNING NOTE ---
Advance Care Planning - Planning Encounter Date: 09/17/22 Time: 13:00 Purpose: To establish his wishes regarding CODE STATUS and regarding medical management going forward. Parties in Attendance: I spoke to the patient, and was at bedside as well. Decisional Capacity of the Patient: The patient is only oriented to self, not place or time. The is the primary decision maker. The will be signing the POLST form. - Diagnosis for Encounter (1) Altered mental status Qualifiers: Altered mental status type: disorientation Qualified Code(s): R41.0 - Disorientation, unspecified Summary: Yesterday the patient was obtunded, did not follow directions, could not answer questions and was speaking about alternate topics. Today he is awake, answers but is again entirely off topic. As per the at bedside, she is the main decision maker. The patient has not driven a car in at least 2 months. He is here to evaluate why he has these intermittent events of altered mental status. There is no current infection, hypotension or tachycardia or hypoxia. He is dehydrated with hypernatremia however and uses a lot of sedative medications, psychoactive medications and uses a lot of cannabis. 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 He has PTSD from this. He has not driven a car in 2 months. 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 The patient has had 2 prior hospitalizations with same presentation where he is not eating well, not drinking well then becomes even more obtunded, stares off into space and does not communicate with family members. This is his third presentation that is similar. Objective/Medical Story: Patient was admitted obtunded, staring off into space, not answering questions. The reasons appear to be multifactorial: From excessive marijuana use, medications that are overly sedating and from being dehydrated. A cognitive evaluation was ordered after the patient had become more awake and he scored 7/30 on a slums test indicating significant cognitive impairment. The CT of the head was consistent with this and showed moderate brain atrophy and an old stroke. Goals of Care: Comfort is the main goal. Plan: The POLST form was reviewed with the patient and the . It was left for them to read slowly in detail and to discuss. Questions were answered to their satisfaction. The patient and have decided to make his CODE STATUS DNR/DNI, and also to request comfort-focused treatment, not full treatment as the primary goal. Code Status: Do Not Attempt Resuscitation Time spent on advance care plannin min
[2022-09-17] MEDS ORDERED: oxyCODONE 5 MG TABLET PO PRN (14:35)
[2022-09-17] MEDS: ACETAMINOPHEN 325 MG TABLET PO PRN ×2 (15:50→21:31)
[2022-09-17] MEDS ORDERED: PRAZOSIN 1 MG CAPSULE PO SCH (21:00)
[2022-09-17] MEDS ORDERED: ATORVASTATIN 40 MG TABLET PO SCH (21:00)
[2022-09-18] MEDS: SODIUM CHLORIDE FLUSH 0.9% 10 ML SYRINGE IVP SCH ×2 (00:02→08:24)
[2022-09-18] MEDS: DEXTROSE 5% 1,000 ML IV SCH (05:09)
[2022-09-18] MEDS: GABAPENTIN 300 MG CAPSULE PO SCH ×2 (05:10→15:13)
[2022-09-18 07:39] LABS: BASOPHILS % (AUTO) 0.2 %; EOSINOPHILS # (AUTO) 0.4 10^3/uL (0.0-0.7); EOSINOPHILS % (AUTO) 6.6 %; HCT - HEMATOCRIT 35.3 % (42.0-52.0); HGB - HEMOGLOBIN 11.7 g/dL (14.0-18.0); LYMPHOCYTES # (AUTO) 1.2 10^3/uL (1.5-3.5); LYMPHOCYTES % (AUTO) 20.7 %; MEAN CORPUSCULAR HEMOGLOBIN 31.5 pg (27.0-31.0); MEAN CORPUSCULAR HGB CONC 33.1 g/dL (32.0-36.0); MEAN CORPUSCULAR VOLUME 94.9 fL (80.0-94.0); MEAN PLATELET VOLUME 9.5 fL (7.4-11.4); MONOCYTES # (AUTO) 0.5 10^3/uL (0.0-1.0); NEUTROPHILS # (AUTO) 3.6 10^3/uL (1.5-6.6); NEUTROPHILS % (AUTO) 63.6 %; PLT - PLATELET COUNT 142 10^3/uL (130-450); RED BLOOD COUNT 3.72 10^6/uL (4.70-6.10); RED CELL DISTRIBUTION WIDTH 13.5 % (12.0-15.0); WHITE BLOOD COUNT 5.6 x10^3/uL (4.8-10.8)
[2022-09-18 08:00] LABS: CALCIUM 8.2 mg/dL (8.5-10.3); CREATININE 0.6 mg/dL (0.6-1.2)
[2022-09-18] MEDS ORDERED: PRENATAL VITAMIN TABLET PO SCH (08:00)
[2022-09-18] MEDS: ASPIRIN EC 81 MG TABLET PO SCH (08:20)
[2022-09-18] MEDS: SERTRALINE 50 MG TABLET PO SCH (08:20)
[2022-09-18] MEDS: PROPRANOLOL ER 60 MG CAPSULE PO SCH (08:20)
[2022-09-18] MEDS: FAMOTIDINE 20 MG TABLET PO SCH (08:20)
[2022-09-18] MEDS: lisinopriL 5 MG TABLET PO SCH (08:20)
[2022-09-18] MEDS: buPROPion SR 150 MG TABLET PO SCH (08:20)
[2022-09-18] MEDS: ENOXAPARIN 40 MG/0.4 ML SYRINGE SUBQ SCH (08:20)
[2022-09-18] MEDS ORDERED: CHOLECALCIFEROL 5,000 UNIT CAPSULE PO SCH (09:00)
[2022-09-18] MEDS ORDERED: POTASSIUM CHLORIDE 10 MEQ CAPSULE PO ONE (10:19)
[2022-09-18 16:26] VITALS: BP 107/73
--- NOTE | 2022-09-18 18:34 | Discharge Plan ---
Discharge Plan Problem Reviewed?: Yes Disposition: Home, Self Care Condition: Fair Prescriptions: Potassium Chloride [Micro-K] 10 meq PO DAILY #30 cap Sertraline HCl 100 mg PO DAILY #30 tab Sertraline [Zoloft] 50 mg PO QPM #30 tab Diet: Regular Activity Restrictions: Activity as Tolerated Shower Restrictions: No Driving Restrictions: Yes (No driving a vehicle due to poor memory) Assistance Devices: Walker, Cane Weight Bearing: Full Weight Health Concerns: The patient required hospitalization due to significantly altered mental status: obtunded, staring off into space, not communicating. We found the reasons to be several: from too much marijuana use, from excessively high doses of m edications that over-sedate the patient, and from dehydration. The patient is being discharged home today and there are important changes in doses of several of his medications. Please follow the current list of medications provided to you. The medication changes were electronically sent to your [facility] in [place]. Also please decrease your marijuana intake substantially. You qualify for attending outpatient occupational therapy which will help promote a better memory. There is now a medical restriction from the patient operating a motor vehicle, because of the poor memory. A form has been submitted to the DMV and this form carries legal significance. Plan of Treatment: As above. Please see your primary care provider in the next 1 to 2 weeks for a hospital follow-up visit, and to request a referral for outpatient Occupational Therapy. Care Goals: Improvement in symptoms and stabilization of the goals. Assessment: The patient agrees. The is at bedside and understands and agrees with the plan as well. Additional Instructions or Follow Up instructions: If Raymundo has new or worsening symptoms, call the PCP for advice, or come to the ER. Follow-Up Care: Outpatient Rehab - OT No Smoking: If you smoke, Please STOP! Call for help. Follow-up with: Tennille Rodriguez PA-C [Provider Admit Priv/Credential] -
--- NOTE | 2022-09-18 18:53 | DISCHARGE SUMMARY ---
Discharge Summary Admit Date: 09/16/22 Discharge Date: 09/18/22 Discharging Provider: Dr Leti Dumont Primary Care Provider: NATHAN Rodriguez Code Status: Do Not Attempt Resuscitation (Patient and filled out a new POLST form on 09/17/2022, he wants to be DNR/DNI) Condition at Discharge: Fair Discharge Disposition: 01 Home, Self Care - HPI History of Present Illness: This is a 72-year-old white male who has a past medical history significant for hypertension, hyperlipidemia, PTSD, anxiety, depression, and overuse of marijuana with significant psychomotor slowing, sedation, and cyclical vomiting from said marijuana. He now presents as gradually becoming more unresponsive. His family states that he does this about every 6 months, usually associated with cannabis. When he is admitted, he will be hypokalemic, and obtunded for a few days and then he gradually wakes up. We admitted him in October 2021 and February 2022 for this. He was a no show for his PCP visit 03/05/22 and has not seen the PCP in the clinic here. With this encounter, he was brought to the emergency room on September 15 by EMS. Family called EMS because the patient had not been really responding since that morning. His last known normal was the night before when he went to bed. He woke up that morning morning not really answering questions but moaning and groaning. He seemed confused. And sleepier than normal. He had stopped smoking cannabis on , September 12. He had been vomiting. He vomited off-and-on, and his family was trying to give him his usual home meds but he really was not able to keep them down. They did not describe fever. They did not describe cough, congestion, or abdominal pain. There is no previous history of trauma or falling. In the emergency room temperature was 36.6. Heart rate 112. Blood pressure 133/115. Respirations 17. He was on 100% saturated on room air. He was awake, following commands but not really able to answer questions. Glucose was 171 for the medics. The ER doctor describes them as without distress, well-developed and well-nourished. He was awake and making eye contact when you call his name. But he did not have any coherent answers to any questions. He did not seem to understand what was being asked. Lungs were clear. No respiratory distress. Abdomen was benign. And he appeared delirious on neuro exam without any gross focal deficits. His white cell count was 21.7. Hemoglobin 17.4. Platelets 364. Sodium was elevated at 150. Potassium was low 2.6. BUN was 74, creatinine 1.6. Lactic acid was 2.5. Head CT was done and there is no acute intracranial abnormality. He has moderate cerebral volume loss and mild chronic white matter disease. Because he had an elevated white cell count, and he was vomiting, a CT of the abdomen was done several hours later. His solid organs were unremarkable. He did not have hydronephrosis. He had a small left renal cortical cyst. There was gastric wall thickening suggestive of gastritis. Small and large bowel loops were normal. No air-fluid levels. No free air. At that point in time there were no beds available for admission. The patient was kept in the emergency room. He received 3 L of normal saline for that sodium of 150. Sodium climbed to 155. He also received potassium riders. His IV fluids were changed to D5 half-normal saline. This morning sodium is 151 and potassium is 2.8. BUN has improved to 47 and creatinine is Down to 1.1. He is still not very awake. Sleeping. We have been asked to bring him into the acute care [facility] and he will be an inpatient. Management was discussed with the ER provider, Dr. Lomas, where we discussed the details of previous treatment. And what we would be doing as we brought him into the inpatient side. - HOSPITAL COURSE Hospital Course: (1) Altered mental status : R41.0 - Disorientation, unspecified His family said "this is what he does every 6 months". He was obtunded, staring off into space, not communicating. We found the reasons to be multifactorial: from marijuana use, from excessively high doses of medications that over-sedate the patient, and from dehydration and hypernatremia. There was no acute stroke by head CT. He received iv hypotonic fluids. The following day he was more awake but oriented only to self, not place or time. When asked questions, he answered regarding something entirely different, and this happened repeatedly. CT of the head did show moderate atrophy and there was also an old stroke seen. He may have multi-infarct dementia. He was able to function independently, per PT evaluation, but on cognitive OT evaluation he scored 7/30, indicating severe cognitive impairment. I told the patient and his that he can no longer drive a vehicle, given his memory impairment. A DMV form was submitted prohibiting driving. The said their daughter lives with them and could be the designated retail delivery driver. I also discharged him on lower doses of his psychoactive and neuropathy meds. He qualifies for attending outpatient occupational therapy, which may help memory. (2) Dementia CT of the head did show moderate atrophy and there was an old stroke seen. He may have multi-infarct dementia. By cognitive OT evaluation, he scored 7/30, indicating severe cognitive impairment. Please consider a Neurology referral. (3) Cannabis abuse At the last admission, a Hospitalist let him know that his marijuana overuse was leading to poor health and hospital readmissions, which could be avoided. He said, at that time, that he felt that our conclusion was incorrect. And the had said that there is not much she can do to control his behavior. We tried to impact by discussions and teaching, why cannabis excess use is detrimental. (4) Hypernatremia Adm Na was 150 and nataly to 155. This was due to dehydration, from poor po intake of liquids for several days and from vomiting. He received iv hypotonic fluids. Sodium was corrected slowly. Serum Na at discharge was 139. (5) Dehydration As noted, by his dry oral mucosa at admission, and elevated sodium. IV fluids were infused. (6) Hypertension At home he was on Minipress, Inderal and Zestril, which we continued here. (7) Hypokalemia Adm K was 2.6. This was from poor po intake of liquids and from vomiting. IV supplementation was given. He was discharged on new KCl 10mEq po daily. (8) Chronic pain According to his medication list he has chronic neuropathy and takes gabapentin and muscle relaxants. When asked where he usually gets pain, said he absolutely cannot remember. There was no pain seen during PT eval. Therefore, we decreased doses of his psychoactive and neuropathy meds, and discharged him with these new lower doses, which were reviewed with his . (9) Tremor It is for a tremor that he is on Propranolol, not for hypertension. We continued his Propranolol (10) Leukocytosis : D72.823 - Leukemoid reaction He had no cough and lung exam was negative. Urinalysis had abnormal constituents but not a UTI. CT of the abdomen and exam appeared benign. No empiric antibiotics were started. The repeat white cell count had improved. (11) Gastritis: K29.00 - Acute gastritis without bleeding Family said he had some emesis. In the past he has had cyclical vomiting. CT of the abdomen showed thickened gastric wall suggesting gastritis. He was placed on his home famotidine and proton pump inhibitor, he needed no anti- emetics. Gastritis sx resolved and a regular diet was tolerated. - ALLERGIES Allergies/Adverse Reactions: Allergies Allergy/AdvReac Type Severity Reaction Status Date / Time bee venom protein (honey bee) Allergy Unknown Verified 09/15/22 21:11 - MEDICATIONS Home Medications: Ambulatory Orders Medication Instructions Recorded Confirmed Prazosin HCl [Minipress] 4 mg PO QPM 12/19/15 09/15/22 Atorvastatin Calcium 40 mg PO QPM 01/20/17 09/15/22 Propranolol ER [Inderal LA] 60 mg PO DAILY 02/06/21 09/15/22 Aspirin EC [Ecotrin] 81 mg PO DAILY 11/04/21 09/15/22 Lisinopril [Zestril] 10 mg PO DAILY 02/25/22 09/15/22 buPROPion HCL [Bupropion HCl Sr] 150 mg PO BID 02/25/22 09/15/22 Cholecalciferol (Vitamin D3) 5,000 unit PO DAILY 09/16/22 09/16/22 [Vitamin D3] Famotidine [Pepcid] 20 mg PO DAILY 09/16/22 09/16/22 Multivit-Minerals/Folic Acid 200 mcg PO DAILY 09/16/22 09/16/22 [Multivitamin Gummies] Gabapentin [Neurontin] 300 mg PO TID #0 cap 09/18/22 Potassium Chloride [Micro-K] 10 meq PO DAILY #30 cap 09/18/22 Sertraline HCl 100 mg PO DAILY #30 tab 09/18/22 Sertraline [Zoloft] 50 mg PO QPM #30 tab 09/18/22 - PHYSICAL EXAM AT DISCHARGE General Appearance: positive: No acute distress, Alert, Other (Very tall and thin male, who appears older that his age.) Eyes Bilateral: positive: Normal inspection, EOMI ENT: positive: ENT inspection nml, No signs of dehydration Neck: positive: Nml inspection, Other (Cannot eval JVP due to long hair and long turk) Respiratory: positive: No respiratory distress, Breath sounds nml Cardiovascular: positive: Regular rate & rhythm, No murmur Abdomen: positive: Non-tender, No distention Skin: positive: Warm, Dry Extremities: positive: Non-tender, Nml appearance, No pedal edema Neurologic/Psychiatric: positive: Disoriented to place, Disoriented to time, Other (Abnormal gait, has marked kyphoscoliosis.) - LABS Result Diagrams: 09/18/22 07:12 09/18/22 07:12 - DIAGNOSTIC IMAGING Diagnostic Imaging Results: Final report reviewed - FOLLOW UP Follow Up: See PCP in 1-2 weeks for labs and a hospital follow-up visit. - TIME SPENT Time Spent in Discharge (Minutes): 55
--- NOTE | 2022-09-25 18:25 | ED Physician Documentation ---
ED Addendum - Addendum Addendum: 09/25/22 18:23 The patient remained stable after change of ER shift. Repeat labs showed still elevated sodium and so changed to hypotonic saline with potassium. Subsequently a bed became available in patient and I talked with the hospitalist, who accepted care. Disposition: admitted to hospitalist service in stable condition. Diagnoses: 1. altered mental status 2. dehydration 3. hypernatremia 4. cannibis abuse
== END 2022-09-18 19:16 | disposition home or self-care (01) | DRG 948 ==
LOC: EDUNIT# → ED 20:57 → MS2 09-16 12:24
PROVIDERS: ADMIT Specialist; ATTEND Internal Medicine
DX: R41.82 Altered mental status, unspecified (principal); R41.0 Disorientation, unspecified; E87.0 Hyperosmolality and hypernatremia; F03.90 Unspecified dementia, unspecified severity, without behavioral disturbance, psychotic disturbance, mood disturbance, and anxiety; F12.10 Cannabis abuse, uncomplicated; E86.0 Dehydration; Z20.822 Contact with and (suspected) exposure to COVID-19; I10 Essential (primary) hypertension; F41.9 Anxiety disorder, unspecified; E87.6 Hypokalemia; G89.29 Other chronic pain; R25.1 Tremor, unspecified; D72.823 Leukemoid reaction; K29.00 Acute gastritis without bleeding; F43.10 Post-traumatic stress disorder, unspecified; E78.5 Hyperlipidemia, unspecified; F32.A Depression, unspecified; R00.0 Tachycardia, unspecified; I25.10 Atherosclerotic heart disease of native coronary artery without angina pectoris; Z86.73 Personal history of transient ischemic attack (TIA), and cerebral infarction without residual deficits; N40.1 Benign prostatic hyperplasia with lower urinary tract symptoms; R33.8 Other retention of urine; E11.42 Type 2 diabetes mellitus with diabetic polyneuropathy; I69.319 Unspecified symptoms and signs involving cognitive functions following cerebral infarction; F01.50 Vascular dementia, unspecified severity, without behavioral disturbance, psychotic disturbance, mood disturbance, and anxiety; Z66 Do not resuscitate; D72.829 Elevated white blood cell count, unspecified; R11.2 Nausea with vomiting, unspecified
CPT/HCPCS: 36415; 70450; 74177; 80048; 80053; 80306; 81001; 83605; 83690; 83735; 84295; 84439; 84443; 85025; 85610; 87633; 93005; 96361; 96365; 96366; 96368; 96375; 96376; 97161; 97166; 99285; A9270; G0480; J1170; J1650; J2060; J3411; Q9967; 80320; 81003; 87086

== ENCOUNTER 2022-09-30 07:32 | Outpatient (CLI) | payer MEDICARE, OTHER ==
[2022-09-30 08:06] LABS: ALBUMIN/GLOBULIN RATIO 1.4 (1.0-2.2); ALKALINE PHOSPHATASE 43 IU/L (42-121); ALT ALANINE AMINOTRANSFERASE 22 IU/L (10-60); AST ASPARTATE AMINOTRANSFERASE 22 IU/L (10-42); BASOPHILS % (AUTO) 0.6 %; BILIRUBIN,TOTAL 0.6 mg/dL (0.2-1.0); BUN - BLOOD UREA NITROGEN 11 mg/dL (6-20); CARBON DIOXIDE - CO2 25 mmol/L (21-32); CHLORIDE 107 mmol/L (101-111); CHOLESTEROL 164 mg/dL; CREATININE 0.7 mg/dL (0.6-1.2); EOSINOPHILS # (AUTO) 0.2 10^3/uL (0.0-0.7); EOSINOPHILS % (AUTO) 2.9 %; GFR - MDRD 111 (>89); GLUCOSE 132 mg/dL (70-100); HCT - HEMATOCRIT 42.7 % (42.0-52.0); HDL CHOLESTEROL 54 mg/dL; HGB - HEMOGLOBIN 14.2 g/dL (14.0-18.0); LDL CHOLESTEROL,CALCULATED 94 mg/dL; LDL/HDL RATIO 1.7 (<3.6); LYMPHOCYTES # (AUTO) 1.5 10^3/uL (1.5-3.5); LYMPHOCYTES % (AUTO) 23.9 %; MEAN CORPUSCULAR HEMOGLOBIN 31.8 pg (27.0-31.0); MEAN CORPUSCULAR HGB CONC 33.3 g/dL (32.0-36.0); MEAN CORPUSCULAR VOLUME 95.7 fL (80.0-94.0); MEAN PLATELET VOLUME 9.5 fL (7.4-11.4); MONOCYTES # (AUTO) 0.5 10^3/uL (0.0-1.0); MONOCYTES % (AUTO) 7.5 %; NEUTROPHILS # (AUTO) 3.9 10^3/uL (1.5-6.6); NEUTROPHILS % (AUTO) 63.3 %; PLT - PLATELET COUNT 250 10^3/uL (130-450); POTASSIUM 3.9 mmol/L (3.5-5.0); RED BLOOD COUNT 4.46 10^6/uL (4.70-6.10); RED CELL DISTRIBUTION WIDTH 13.8 % (12.0-15.0); SODIUM 142 mmol/L (135-145); TOTAL PROTEIN 6.9 g/dL (6.7-8.2); TRIGLYCERIDES 79 mg/dL; VLDL CHOLESTEROL 16 mg/dL; WHITE BLOOD COUNT 6.2 x10^3/uL (4.8-10.8)
== END 2022-09-30 07:33 | disposition home or self-care (01) ==
LOC: LAB 07:32
PROVIDERS: ATTEND Nurse Practitioner Family
DX: I10 Essential (primary) hypertension (principal); I73.9 Peripheral vascular disease, unspecified
CPT/HCPCS: 36415; 80053; 80061; 83721; 85025